=== PATIENT | male | born 1955 | race Caucasian/White ===

== ENCOUNTER 2019-07-17 10:15 | Outpatient (RCR) | payer OTHER, SELFPAY | END 2019-07-18 00:01 | LOC: ONCMED 10:15 | PROVIDERS: Family Provider Family Medicine; Visit Provider Internal Medicine Hematology & Oncology | DX: Z51.11 Encounter for antineoplastic chemotherapy (principal); C18.3 Malignant neoplasm of hepatic flexure; C77.2 Secondary and unspecified malignant neoplasm of intra-abdominal lymph nodes; D70.1 Agranulocytosis secondary to cancer chemotherapy; D69.59 Other secondary thrombocytopenia; T45.1X5A Adverse effect of antineoplastic and immunosuppressive drugs, initial encounter; Z45.2 Encounter for adjustment and management of vascular access device; Z90.49 Acquired absence of other specified parts of digestive tract | CPT/HCPCS: 36415; 80053 ×3; 83735; 85025 ×3; 96367; 96368; 96413; 96415; 96416; 96523; 99214; J0640; J1100; J2469; J9263 ==

== ENCOUNTER 2019-08-10 12:17 | Outpatient (RCR) | payer OTHER, SELFPAY ==
[2019-07-24 17:31] LABS: Basophils % 0.7 %; Eosinophils # 0.2 10^3/uL (0.0-0.8); Hemoglobin 12.9 g/dL (11.7-16.6); Lymphocytes % 36.6 %; Mean Corpuscular HGB Conc 32.3 g/dL (30.0-36.0); Mean Corpuscular Hemoglobin 34.5 pg (28.0-34.0); Mean Platelet Volume 9.7 fL (7.4-10.4); Monocytes % 18.5 %; Neutrophils # 2.2 10^3/uL (1.8-7.7); Neutrophils % 40.6 %; Nucleated Red Blood Cells % 0 %; Platelet Count 184 10^3/cmm (130-400); Red Blood Count 3.74 10^6/uL (4.1-5.3); Red Cell Distribution Width 13.4 % (12.1-15.1); White Blood Count 5.4 10^3/uL (4.0-10.0)
[2019-07-24 23:15] LABS: Alanine Aminotransferase 63 U/L (0-41); Albumin Level 3.9 g/dL (3.5-5.2); Alkaline Phosphatase 140 IU/L (40-130); Anion Gap 15.8 (5-19); Aspartate Amino Transferase 62 U/L (0-40); Blood Urea Nitrogen 11 mg/dL (8-23); Calcium 10.3 mg/Dl (8.8-10.2); Carbon Dioxide 25 mmol/L (22-29); Chloride 102 mmol/L (98-107); Glomerular Filtration Rate 114.3 mL/min (90-130); Glucose 96 mg/dL (74-106); Potassium 3.8 mmol/L (3.5-5.1); Sodium 139 mmol/L (136-145); Total Bilirubin 0.9 mg/dL (0.15-1.2); Total Protein 7.9 g/dL (6.6-8.7)
[2019-07-25] MEDS: fluconazole premix 200 MG/100 ML PREMIX IV (10:00)
[2019-07-25] MEDS: dextrose 5% 250 ML 75 ML (11:05)
[2019-07-31 15:50] LABS: Basophils # 0.1 10^3/uL (0.0-0.1); Basophils % 0.9 %; Eosinophils # 0.2 10^3/uL (0.0-0.8); Eosinophils % 2.4 %; Hematocrit 39.9 % (42.0-52.0); Hemoglobin 13.2 g/dL (11.7-16.6); Lymphocytes # 1.5 10^3/uL (0.8-4.8); Lymphocytes % 20.5 %; Mean Corpuscular HGB Conc 33.1 g/dL (30.0-36.0); Mean Corpuscular Hemoglobin 34.6 pg (28.0-34.0); Mean Corpuscular Volume 104.7 fL (80-94); Mean Platelet Volume 9.9 fL (7.4-10.4); Monocytes # 0.7 10^3/uL (0.2-0.9); Monocytes % 9.7 %; Neutrophils # 4.9 10^3/uL (1.8-7.7); Neutrophils % 66.1 %; Nucleated Red Blood Cells % 0.3 %; Platelet Count 80 10^3/cmm (130-400); Red Blood Count 3.81 10^6/uL (4.1-5.3); Red Cell Distribution Width 12.7 % (12.1-15.1); White Blood Count 7.5 10^3/uL (4.0-10.0)
[2019-07-31 16:12] LABS: Alanine Aminotransferase 71 U/L (0-41); Albumin Level 4.1 g/dL (3.5-5.2); Alkaline Phosphatase 215 IU/L (40-130); Anion Gap 18.6 (5-19); Aspartate Amino Transferase 54 U/L (0-40); Blood Urea Nitrogen 13 mg/dL (8-23); Calcium 9.9 mg/Dl (8.8-10.2); Carbon Dioxide 23 mmol/L (22-29); Chloride 99 mmol/L (98-107); Globulin 3.5 g/dL (1.3-4.6); Glomerular Filtration Rate 114.3 mL/min (90-130); Glucose 144 mg/dL (74-106); Potassium 3.6 mmol/L (3.5-5.1); Sodium 137 mmol/L (136-145); Total Bilirubin 1.6 mg/dL (0.15-1.2); Total Protein 7.6 g/dL (6.6-8.7)
[2019-08-07 12:07] LABS: Basophils % 0.3 %; Eosinophils # 0.3 10^3/uL (0.0-0.8); Eosinophils % 2.8 %; Hematocrit 39.1 % (42.0-52.0); Hemoglobin 13.2 g/dL (11.7-16.6); Lymphocytes # 2.5 10^3/uL (0.8-4.8); Lymphocytes % 28.5 %; Mean Corpuscular HGB Conc 33.8 g/dL (30.0-36.0); Mean Corpuscular Hemoglobin 35.9 pg (28.0-34.0); Mean Corpuscular Volume 106.3 fL (80-94); Mean Platelet Volume 9.9 fL (7.4-10.4); Monocytes # 1.6 10^3/uL (0.2-0.9); Monocytes % 17.5 %; Neutrophils # 4.4 10^3/uL (1.8-7.7); Nucleated Red Blood Cells % 0 %; Platelet Count 119 10^3/cmm (130-400); Red Blood Count 3.68 10^6/uL (4.1-5.3); Red Cell Distribution Width 13.2 % (12.1-15.1); White Blood Count 8.8 10^3/uL (4.0-10.0)
[2019-08-07 12:35] LABS: Alanine Aminotransferase 47 U/L (0-41); Albumin Level 3.4 g/dL (3.5-5.2); Alkaline Phosphatase 180 IU/L (40-130); Anion Gap 15.7 (5-19); Aspartate Amino Transferase 41 U/L (0-40); Blood Urea Nitrogen 7 mg/dL (8-23); Calcium 10.2 mg/Dl (8.8-10.2); Carbon Dioxide 25 mmol/L (22-29); Chloride 101 mmol/L (98-107); Globulin 4.7 g/dL (1.3-4.6); Glomerular Filtration Rate 114.3 mL/min (90-130); Glucose 98 mg/dL (74-106); Potassium 3.7 mmol/L (3.5-5.1); Sodium 138 mmol/L (136-145); Total Protein 8.1 g/dL (6.6-8.7)
[2019-08-08] MEDS: dextrose 5% 250 ML IV (10:28)
[2019-08-10] MEDS: acetaminophen 325 mg Tablet PO (13:40)
== END 2019-08-18 23:59 | disposition home or self-care (01) ==
LOC: ONCMED 12:17
PROVIDERS: Nurse Practitioner; Family Provider Family Medicine; PCP Family Medicine; Visit Provider Internal Medicine Hematology & Oncology
DX: Z51.11 Encounter for antineoplastic chemotherapy (principal); C18.3 Malignant neoplasm of hepatic flexure; C77.2 Secondary and unspecified malignant neoplasm of intra-abdominal lymph nodes; D70.1 Agranulocytosis secondary to cancer chemotherapy; B37.0 Candidal stomatitis; T45.1X5A Adverse effect of antineoplastic and immunosuppressive drugs, initial encounter; Z45.2 Encounter for adjustment and management of vascular access device; D69.59 Other secondary thrombocytopenia; F43.22 Adjustment disorder with anxiety; F10.20 Alcohol dependence, uncomplicated; J44.9 Chronic obstructive pulmonary disease, unspecified; E78.5 Hyperlipidemia, unspecified; I10 Essential (primary) hypertension; F17.210 Nicotine dependence, cigarettes, uncomplicated; Z79.51 Long term (current) use of inhaled steroids; Z90.49 Acquired absence of other specified parts of digestive tract
CPT/HCPCS: 36415; 80053; 85025; 96367; 96368; 96372; 96413; 96415; 96416; 96523; 99214; J0640; J1100; J1450; J2469; J2505; J9263

== ENCOUNTER 2019-08-22 05:45 | Outpatient (RCR) | payer OTHER, SELFPAY ==
--- NOTE | 2019-07-28 10:28 | ONC FU_ITS ---
[facility] Patient Note Patient: Rich Potts Unit #: [id number]: 1955 Dictated By: Cinad NaranjoDate of Visit: Jul 25, 2019 Onc MED Follow-Up/Prog Note Chief Complaint: Right colon cancer History of Present Illness: Mr. Potts is a 64-year-old gentleman who underwent surveillance colonoscopy. It revealed a mass in the hepatic flexure. A biopsy was obtained which showed adenocarcinoma arising in the background of tubular adenoma. There was another friable polyp seen which was completely removed, but did show tubular adenoma with high-grade dysplasia. CT scan of abdomen reported no direct evidence of metastatic disease. Mr Potts underwent ascending colon and terminal ileum, right hemicolectomy on 01/24/2019. The pathology reported low-grade, well to moderately differentiated infiltrating adenocarcinoma with limited penetration through muscularis propria into serosal connective tissue. Tumor arising immediately adjacent to tubulovillous adenoma with severe dysplasia T3 Smaller, separate invasive carcinoma focus measuring 1 x 1 cm. Surgical margins clear but as per discussion with Dr. 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 2 nodes were positive( microscopic clusters/ )14 node examined N1b MSI/MMR intact Dr Barbour recommended treatment with 12 cycles of FOLFOX. He began his first cycle on 04/04/19. His dose has been modified to hold the 5 FU bolus. Mr Potts has completed 5 cycles and has had complications due to the chemotherapy of neutropenia/thrombocytopenia. His cycle 4 was held an additional week due to the neutropenia. He was due for chemo and his ANC was 900. He was delayed a week and recovered to 1800. His day 8 ANC then was 1600. His platelet count was 72,000 at that time as well. Mr. Potts is here today for follow-up. His last chemotherapy was June 27, 2019. He had been on delay due to thrombocytopenia and neutropenia. His ANC last week at which time he was due for chemotherapy was 800. He did not have growth factor support with his last cycle of chemotherapy. He is here today for recheck of his labs and possible chemotherapy. He states overall he is doing well. He has no complaints. He states he has occasional headache and thinks it may be coming after treatment. He states is not real sure but has been asked to watch that today. If he has a headache within the next 3 to 5 days after chemotherapy I would suggest that it could be caused from the Aloxi/palonosetron. He states things have been tasting weird, which is new for him. He denies any fever or chills. He has had no diarrhea or constipation. He denies any new pain. He states his energy is fair and his appetite is generally good. He has had some slight cold-induced neuropathy but that resolves completely between treatments. His ECOG is 1. Past Medical History: Adjustment disorder Alcohol dependence Anxiety Chronic obstructive pulmonary disease Hyperlipidemia Hypertension Past Surgical History: Colon resection Right hemicolectomy Colonoscopy in 2019 Portacatheter placement in 2019 Allergies: No Known Allergies. Medications: Albuterol Sulfate 2 puff(s) (of 108 (90 base) mcg/act) Aerosol Powder, Breath Activated Inhalation q 4 hours PRN ALPRAZolam 1 Tablet (of 0.5 mg) Oral t.i.d. PRN Atorvastatin Calcium 1 Tablet (of 40 mg) Oral daily FLUoxetine HCl 1 Tablet (of 40 mg) Capsule Oral daily Gabapentin 1 Capsule (of 300 mg) Oral t.i.d. Lisinopril 1 Tablet (of 20 mg) Oral daily Propranolol HCl 1 Tablet (of 10 mg) Oral b.i.d. Sildenafil Citrate 1 Tablet (of 100 mg) Oral PRN Family History: Mr. Potts's mother at age 75: lung cancer. Mr. Potts's father at age 88: lung cancer. His maternal grandfather is : colon cancer. Mr. Potts has 1 sister who is : cancer of unknown primary. Social History: Mr. Potts is single and he is retired. He is a daily smoker who has smoked 0.5 packs/day for 44 years. He drinks daily. He consumes 7 drinks/day 6 days/week. He has indicated exposure to the following products: cigarettes. Mr. Potts reports the following support systems: lives with spouse, significant other, family, or friends, lives in own house, and transportation problems exist and will require assistance. His diet consists of regular meals. He indicates his activity level as: daily activities. Review Of Symptoms: Constitutional Denies fevers, chills, night sweats, excessive fatigue. Taste is off . Allergic/Immunologic No reactions. Eyes Denies significant visual changes. No diplopia. No amaurosis. ENMT Denies changes in hearing, sore throat, mouth sores, difficulty or changes in swallowing ability, and/or sinus drainage. Endocrine No diabetes, thyroid disease or hormone replacement. Denies hot flashes or night sweats. Hematologic/Lymphatic Denies easy bruising or bleeding. The patient denies any tender or palpable lymph nodes. Respiratory Denies dyspnea on exertion, chest pain, cough or hemoptysis. Denies orthopnea. Cardiovascular Denies anginal chest pain, palpitations or orthopnea. Gastrointestinal Denies nausea, vomiting, diarrhea, GI bleeding, or constipation. Denies change in bowel habits and/or stool color, no heartburn or early satiety. Genitourinary (M) Denies hematuria, dysuria, increased frequency, urgency, hesitancy or incontinence. Musculoskeletal Denies joint pain, swelling or redness. No decreased range of motion. Integumentary Denies chronic rashes, inflammation, ulcerations or skin changes. Neurologic Denies headache, blurred vision, and no areas of focal weakness or numbness. Normal gait. No sensory problems. Psychiatric Denies insomnia, depression, ariel or mood swings. Vital Signs: Performed on Jul 25, 2019 15:00 Height - 76.50 in Pulse - 78 /min Respiration - 18 /min BP - 132/72 mm(hg) O2 Sat - 96 % Pain - 0 Fatigue - 0 Performed on Jul 25, 2019 09:24 Height - 76.50 in Weight - 188.4 lbs (HIGH) BSA - 2.17 sq.m BMI - 22.63 Temperature - 98.0 F (LOW) Pulse - 70 /min Respiration - 22 /min BP - 134/84 mm(hg) O2 Sat - 99 % Pain - 0,1 - No physically strenuous activity, but ambulatory and able to carry out light or sedentary work (e.g. office work, light house work). (ECOG) Physical Examination: Constitutional Alert, oriented, no acute distress. Skin pink, warm and dry. Head Normocephalic; atraumatic. Eyes Conjunctivae and sclerae are clear and without icterus. Pupils are reactive and equal. ENMT No oral exudates, ulcers, masses, or mucositis. Oropharynx clear. Tongue with mild thrush. Neck Supple without masses or thyromegaly. No jugular venous distension. Hematologic/Lymphatic No petechiae or purpura. No tender or palpable lymph nodes in the cervical or supraclavicular areas. Respiratory Lungs are clear to auscultation without rhonchi or wheezing. Cardiovascular Regular rate and rhythm of heart without murmurs,clicks, gallops or rubs. Abdomen Non-tender, non-distended, no masses, ascites. Good bowel sounds noted in all quads. No guarding or rebound tenderness. No pulsatile masses. Back/Spine Non-tender to palpation. Extremities No visible deformities, no cyanosis, clubbing or edema. Musculoskeletal No tenderness or swelling, normal range of motion without obvious weakness. Integumentary No rashes or lesions. Neurologic No sensory or motor deficits, normal cerebellar function, normal gait. Psychiatric Alert and oriented times three. Coherent speech. Verbalizes understanding of our discussions today. Laboratory:Test performed on Jul 25, 2019 08:57 Sodium 139 mmol/L Potassium 3.8 mmol/L Chloride 102 mmol/L CO2 25 mmol/L Anion Gap 15.8 BUN 11 mg/dL Creatinine 0.7 mg/dL Cr Clearance (Est) 129.87 mL/min Glucose 96 mg/dL Calcium 10.3 mg/dL Protein, Total 7.9 g/dL Albumin 3.9 g/dL Globulin 4.0 g/dL Bilirubin, Total 0.9 mg/dL ALT (SGPT) 63 Units/L AST (SGOT) 62 Units/L Alkaline Phosphatase 140 IU/L WBC 5.4 10^3/uL RBC 3.74 10^6/uL HGB 12.9 g/dL HCT 40.0 % MCV 107.0 fl MCH 34.5 pg MCHC 32.3 g/dL RDW 13.4 % Platelet Count 184 10^3/uL MPV 9.7 fl Neutrophils 2.2 10^3/uL Lymphocytes 2.0 10^3/uL Monocytes 1.0 10^3/uL Eosinophils 0.2 10^3/uL Basophils 0.0 10^3/uL Neutrophil % 40.6 % Lymphocyte % 36.6 % Monocyte % 18.5 % Eosinophil % 3.0 % Basophils % 0.7 % Impression: Infiltrating adenocarcinoma, low-grade, well to moderately differentiated status post ascending colon and terminal ileum, right hemicolectomy done on 01/24/2019 Final pathology report showed limited penetration through muscularis propria into serosal connective tissue, smaller, separate invasive carcinoma focus measuring 1 x 1 cm Clear surgical margin but DCIS at staple line. pT3 2 out of 14 lymph nodes were examined showed microscopic clusters pN1b, MSI/MMR intact CT scan of abdomen pelvis done on 11/16/2018 showed no evidence of metastatic disease. Stage IIIB Mr Potts was offered treatment with FOLFOX. He began his first cycle on 04/04/2019. His last cycle of chemotherapy was given on June 27, 2019. That was his fifth cycle and he has been on hold since then due to neutropenia. He is due for cycle 6/12 today. Plan: 1. Proceed with cycle 6 of 12 FOLFOX. 2. Continue antiemetics the same for now he will watch for headache and if he notices headache associated with treatment we will change his Aloxi with cycle 7. 3. I have asked for prior authorization for growth factor support with Neulasta today. This will be added when his pump is removed. He has had delay of treatment due to chemo induced neutropenia. 4. Today's labs were reviewed in detail and discussed with Mr. Potts and a copy was given to him. WBC 5.4, hemoglobin 12.9, platelets 184,000 ANC is 2200. Potassium 3.8 glucose is 96 (random), creatinine 0.7 and LFTs are normal. 5. He does have appearance of thrush in his mouth which may be altering his taste. I did request a prescription be sent to the [place] for Diflucan. He is instructed to take it once daily for 7 days once he receives it. 6. We will plan to see Mr. Potts back in 2 weeks with CBC CMP. He will have interim CBC for evaluation of possible chemo induced neutropenia/thrombocytopenia. 7. Mr. Potts instructed to contact us in the interim should questions or problems arise. Signed By: Cinda Naranjo <<Signature on File>>
--- NOTE | 2019-08-09 09:22 | ONC FU_ITS ---
Dr. Barbour follow up note Patient: Rich Potts Unit #: [id number]: 1955 Dicatated By: Andrés Barbour M.D.Date of Visit:Aug 08, 2019 Onc Med Follow-up/Prog Note History of Present Illness: Mr. Potts is a 64-year-old gentleman who underwent surveillance colonoscopy. It revealed a mass in the hepatic flexure. A biopsy was obtained which showed adenocarcinoma arising in the background of tubular adenoma. There was another friable polyp seen which was completely removed, but did show tubular adenoma with high-grade dysplasia. CT scan of abdomen reported no direct evidence of metastatic disease. Mr Potts underwent ascending colon and terminal ileum, right hemicolectomy on 01/24/2019. The pathology reported low-grade, well to moderately differentiated infiltrating adenocarcinoma with limited penetration through muscularis propria into serosal connective tissue. Tumor arising immediately adjacent to tubulovillous adenoma with severe dysplasia T3 Smaller, separate invasive carcinoma focus measuring 1 x 1 cm. Surgical margins clear but as per discussion with Dr. 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 2 nodes were positive( microscopic clusters/ )14 node examined N1b MSI/MMR intact recommended treatment with 12 cycles of FOLFOX. He began his first cycle on 04/04/19. His dose has been modified to hold the 5 FU bolus. Mr Potts has completed 6 cycles and has had complications due to the chemotherapy of neutropenia/thrombocytopenia. His cycle 4 was held an additional week due to the neutropenia. He was due for chemo and his ANC was 900. He was delayed a week and recovered to 1800. His day 8 ANC then was 1600. His platelet count was 72,000 at that time as well. Came for follow-up, denies any specific complaints, no nausea or vomiting no diarrhea constipation, no fever or chills, no mouth sores. No jaundice. Patient said he could not tolerate Diflucan so he discontinued and denies any thrush in his mouth. He was also schedule him for CT scan of abdomen because of fluctuating LFTs but because of whether he could not get it done Medications: Albuterol Sulfate 2 puff(s) (of 108 (90 base) mcg/act) Aerosol Powder, Breath Activated Inhalation q 4 hours PRN, ALPRAZolam 1 Tablet (of 0.5 mg) Oral t.i.d. PRN, Atorvastatin Calcium 1 Tablet (of 40 mg) Oral daily, FLUoxetine HCl 1 Tablet (of 40 mg) Capsule Oral daily, Gabapentin 1 Capsule (of 300 mg) Oral t.i.d., Lisinopril 1 Tablet (of 20 mg) Oral daily, Propranolol HCl 1 Tablet (of 10 mg) Oral b.i.d., Sildenafil Citrate 1 Tablet (of 100 mg) Oral PRN Allergies: No Known Allergies. Review of Systems: Constitutional - Appetite is good and weight is stable. No fever, chills, hot flashes, or night sweats. Energy level is good, ENMT - No sinus congestion/drainage. No mouth sores. No sore throat or difficulty swallowing, Hematologic/Lymphatic - No abnormal bruising or bleeding, Respiratory - No shortness of breath. No cough. No pleuritic pain or hemoptysis, Cardiovascular - No angina pain. No palpitations, Gastrointestinal - No nausea or vomiting. No heartburn or acid reflux. Positive for diarrhea, no constipation. No blood in the stool or black stools, Genitourinary (M) - No dysuria or hematuria. No urinary frequency. No urgency or incontinence, Musculoskeletal - No joint or bone pain, Neurologic - No headache or dizziness. No numbness/paresthesias or other focal neurologic symptoms, Psychiatric - Positive for anxiety and insomnia. Vital Signs: Performed on Aug 08, 2019 09:33 Height - 76.50 in Weight - 184.2 lbs (LOW) BSA - 2.15 sq.m BMI - 22.13 Temperature - 97.8 F (LOW) Pulse - 86 /min Respiration - 22 /min BP - 116/69 mm(hg) O2 Sat - 98 % Pain - 0 Performance Status: 0 - Fully active, able to carry on all predisease activities without restrictions. (ECOG) Physical Examination: ENMT - No oral exudates, ulcers, masses, thrush or mucositis. Oropharynx clear. Tongue normal, Respiratory - Lungs are clear to auscultation without rhonchi or wheezing, Cardiovascular - Regular rate and rhythm of heart, Abdomen - Non-tender, non-distended, Good bowel sounds. No guarding or rebound tenderness. No pulsatile masses, Extremities - no edema. Lab/Imaging: Test performed on Aug 07, 2019 08:40 Glucose 98 mg/dL BUN 7 mg/dL Creatinine 0.7 mg/dL Cr Clearance (Est) 129.87 mL/min Sodium 138 mmol/L Potassium 3.7 mmol/L Chloride 101 mmol/L CO2 25 mmol/L Calcium 10.2 mg/dL Protein, Total 8.1 g/dL Albumin 3.4 g/dL Globulin 4.7 g/dL Bilirubin, Total 1.0 mg/dL Alkaline Phosphatase 180 IU/L AST (SGOT) 41 IU/L ALT (SGPT) 47 IU/L WBC 8.8 10^9/L RBC 3.68 10^12/L HGB 13.2 g/dL HCT 39.1 % MCV 106.3 fl MCH 35.9 pg MCHC 33.8 g/dL RDW 13.2 % Platelet Count 119 10^9/L MPV 9.9 fL Neutrophils (Gran) 4.4 10^9/L Lymphocytes 2.5 10^9/L Monocytes 1.6 10^9/L Eosinophils 0.3 10^9/L Basophils 0.0 10^9/L Manual Lymphocytes 28.5 % Manual Monocytes 17.5 % Manual Eosinophils 2.8 % Manual Basophils 0.3 % NRBCs 0.0 /100 WBC Test performed on Jul 25, 2019 08:57 Anion Gap 15.8 Neutrophil % 40.6 % Lymphocyte % 36.6 % Monocyte % 18.5 % Eosinophil % 3.0 % Basophils % 0.7 % Test performed on Jul 17, 2019 10:15 eGFR 114.3 mL/min Test performed on Jun 19, 2019 10:05 Magnesium 2.2 mg/dL Impression: Infiltrating adenocarcinoma, low-grade, well to moderately differentiated status post ascending colon and terminal ileum, right hemicolectomy done on 01/24/2019 Final pathology report showed limited penetration through muscularis propria into serosal connective tissue, smaller, separate invasive carcinoma focus measuring 1 x 1 cm Clear surgical margin but DCIS at staple line. pT3 2 out of 14 lymph nodes were examined showed microscopic clusters pN1b, MSI/MMR intact CT scan of abdomen pelvis done on 11/16/2018 showed no evidence of metastatic disease. Stage IIIB Mr Potts was offered treatment with FOLFOX. He began his first cycle on 04/04/2019. His last cycle of chemotherapy was given on June 27, 2019. That was his fifth cycle and he has been on hold since then due to neutropenia. He is due for cycle 6/12 today. Plan: Discussed with patient regarding his labs white blood count 8.8 hemoglobin 13.2 crit 39.1 platelets 119,000 CMP within normal limits including LFTs, AST 41, ALT 47 compared to 54/71 on 07/31/2019 and 43/42 on 06/26/2019. Clinically, patient is doing well tolerating adjuvant chemotherapy with FOLFOX well but with expected side effects e.g. generalized weakness and fatigue and fluctuating LFTs other possibility for fluctuating LFTs could be hepatic pathology but less likely, patient was scheduled for CT scan of abdomen but due to whether he could not get it done and today's lab shows normalization of AST/ALT so we will hold his CT scan for the time being and proceed with cycle #7/12 with FOLFOX today and then he will return to clinic in 2 weeks with CBC CMP. Signed By: Andrés Barbour M.D. <<Signature on File>>
== END 2019-08-22 09:14 | disposition home or self-care (01) ==
LOC: RAD 05:45
PROVIDERS: Absent Provider Nurse Practitioner; Family Provider Family Medicine; PCP Family Medicine; Visit Provider Internal Medicine Hematology & Oncology
DX: D69.59 Other secondary thrombocytopenia (principal); D70.1 Agranulocytosis secondary to cancer chemotherapy; T45.1X5A Adverse effect of antineoplastic and immunosuppressive drugs, initial encounter; C18.3 Malignant neoplasm of hepatic flexure; Z76.89 Persons encountering health services in other specified circumstances
CPT/HCPCS: 96367; 96368; 96372; 96413; 96415; 96416; 96523

== ENCOUNTER 2019-09-07 05:41 | Outpatient (RCR) | payer OTHER, SELFPAY ==
[2019-08-21 14:53] LABS: Basophils % 0.6 %; Eosinophils # 0.1 10^3/uL (0.0-0.8); Eosinophils % 1.5 %; Hematocrit 36.8 % (42.0-52.0); Hemoglobin 11.9 g/dL (11.7-16.6); Lymphocytes # 2.2 10^3/uL (0.8-4.8); Lymphocytes % 32.9 %; Mean Corpuscular HGB Conc 32.3 g/dL (30.0-36.0); Mean Corpuscular Hemoglobin 34.3 pg (28.0-34.0); Mean Corpuscular Volume 106.1 fL (80-94); Mean Platelet Volume 9.9 fL (7.4-10.4); Monocytes # 1.6 10^3/uL (0.2-0.9); Monocytes % 23.5 %; Neutrophils # 2.7 10^3/uL (1.8-7.7); Neutrophils % 40.9 %; Nucleated Red Blood Cells % 0 %; Platelet Count 96 10^3/cmm (130-400); Red Blood Count 3.47 10^6/uL (4.1-5.3); Red Cell Distribution Width 14.1 % (12.1-15.1); White Blood Count 6.7 10^3/uL (4.0-10.0)
[2019-08-21 15:14] LABS: Alanine Aminotransferase 57 U/L (0-41); Albumin Level 3.3 g/dL (3.5-5.2); Alkaline Phosphatase 175 IU/L (40-130); Anion Gap 16.6 (5-19); Aspartate Amino Transferase 49 U/L (0-40); Blood Urea Nitrogen 7 mg/dL (8-23); Carbon Dioxide 27 mmol/L (22-29); Chloride 101 mmol/L (98-107); Globulin 4.8 g/dL (1.3-4.6); Glucose 99 mg/dL (74-106); Potassium 3.6 mmol/L (3.5-5.1); Sodium 141 mmol/L (136-145); Total Bilirubin 1.2 mg/dL (0.15-1.2); Total Protein 8.1 g/dL (6.6-8.7)
[2019-08-22] MEDS: dextrose 5% 250 ML 75 ML IV (09:55)
--- NOTE | 2019-08-22 10:08 | ONC FU_ITS ---
Dr. Barbour follow up note Patient: Rich Potts Unit #: [id number]: 1955 Dicatated By: Andrés Barbour M.D.Date of Visit:Aug 22, 2019 Onc Med Follow-up/Prog Note History of Present Illness: Mr. Potts is a 64-year-old gentleman who underwent surveillance colonoscopy. It revealed a mass in the hepatic flexure. A biopsy was obtained which showed adenocarcinoma arising in the background of tubular adenoma. There was another friable polyp seen which was completely removed, but did show tubular adenoma with high-grade dysplasia. CT scan of abdomen reported no direct evidence of metastatic disease. Mr Potts underwent ascending colon and terminal ileum, right hemicolectomy on 01/24/2019. The pathology reported low-grade, well to moderately differentiated infiltrating adenocarcinoma with limited penetration through muscularis propria into serosal connective tissue. Tumor arising immediately adjacent to tubulovillous adenoma with severe dysplasia T3 Smaller, separate invasive carcinoma focus measuring 1 x 1 cm. Surgical margins clear but as per discussion with Dr. 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 2 nodes were positive( microscopic clusters/ )14 node examined N1b MSI/MMR intact recommended treatment with 12 cycles of FOLFOX. He began his first cycle on 04/04/19. His dose has been modified to hold the 5 FU bolus. Mr Potts has completed 7 cycles and has had complications due to the chemotherapy of neutropenia/thrombocytopenia. His cycle 4 was held an additional week due to the neutropenia. He was due for chemo and his ANC was 900. He was delayed a week and recovered to 1800. His day 8 ANC then was 1600. His platelet count was 72,000 at that time as well.And mildly fluctuating AST/ALT Came for follow-up, denies any specific complaints, no fevers chills no nausea vomiting, no mouth sores no diarrhea constipation no skin rash no peripheral neuropathy, tolerating adjuvant chemotherapy with FOLFOX well. Medications: Albuterol Sulfate 2 puff(s) (of 108 (90 base) mcg/act) Aerosol Powder, Breath Activated Inhalation q 4 hours PRN, ALPRAZolam 1 Tablet (of 0.5 mg) Oral t.i.d. PRN, Atorvastatin Calcium 1 Tablet (of 40 mg) Oral daily, FLUoxetine HCl 1 Tablet (of 40 mg) Capsule Oral daily, Gabapentin 1 Capsule (of 300 mg) Oral t.i.d., Lisinopril 1 Tablet (of 20 mg) Oral daily, Propranolol HCl 1 Tablet (of 10 mg) Oral b.i.d., Sildenafil Citrate 1 Tablet (of 100 mg) Oral PRN Allergies: No Known Allergies. Review of Systems: Constitutional - Appetite is good and weight is stable. No fever, chills, hot flashes, or night sweats. Energy level is good, ENMT - No sinus congestion/drainage. No mouth sores. No sore throat or difficulty swallowing, Hematologic/Lymphatic - No abnormal bruising or bleeding, Respiratory - No shortness of breath. No cough. No pleuritic pain or hemoptysis, Cardiovascular - No angina pain. No palpitations, Gastrointestinal - No nausea or vomiting. No heartburn or acid reflux. Positive for diarrhea, no constipation. No blood in the stool or black stools, Genitourinary (M) - No dysuria or hematuria. No urinary frequency. No urgency or incontinence, Musculoskeletal - No joint or bone pain, Neurologic - No headache or dizziness. No numbness/paresthesias or other focal neurologic symptoms, Psychiatric - Positive for anxiety and insomnia. Vital Signs: Performed on Aug 22, 2019 09:13 Height - 76.50 in Weight - 184.8 lbs (HIGH) BSA - 2.15 sq.m BMI - 22.20 Temperature - 97.9 F (LOW) Pulse - 70 /min Respiration - 18 /min BP - 122/75 mm(hg) O2 Sat - 98 % Pain - 3 Performance Status: 0 - Fully active, able to carry on all predisease activities without restrictions. (ECOG) Physical Examination: ENMT - No oral exudates, ulcers, masses, thrush or mucositis. Oropharynx clear. Tongue normal, Respiratory - Lungs are clear to auscultation without rhonchi or wheezing, Cardiovascular - Regular rate and rhythm of heart, Abdomen - Non-tender, non-distended, Good bowel sounds. No guarding or rebound tenderness. No pulsatile masses, Extremities - no edema. Lab/Imaging: Test performed on Aug 07, 2019 08:40 Glucose 98 mg/dL BUN 7 mg/dL Creatinine 0.7 mg/dL Cr Clearance (Est) 129.87 mL/min Sodium 138 mmol/L Potassium 3.7 mmol/L Chloride 101 mmol/L CO2 25 mmol/L Calcium 10.2 mg/dL Protein, Total 8.1 g/dL Albumin 3.4 g/dL Globulin 4.7 g/dL Bilirubin, Total 1.0 mg/dL Alkaline Phosphatase 180 IU/L AST (SGOT) 41 IU/L ALT (SGPT) 47 IU/L WBC 8.8 10^9/L RBC 3.68 10^12/L HGB 13.2 g/dL HCT 39.1 % MCV 106.3 fl MCH 35.9 pg MCHC 33.8 g/dL RDW 13.2 % Platelet Count 119 10^9/L MPV 9.9 fL Neutrophils (Gran) 4.4 10^9/L Lymphocytes 2.5 10^9/L Monocytes 1.6 10^9/L Eosinophils 0.3 10^9/L Basophils 0.0 10^9/L Manual Lymphocytes 28.5 % Manual Monocytes 17.5 % Manual Eosinophils 2.8 % Manual Basophils 0.3 % NRBCs 0.0 /100 WBC Test performed on Jul 25, 2019 08:57 Anion Gap 15.8 Neutrophil % 40.6 % Lymphocyte % 36.6 % Monocyte % 18.5 % Eosinophil % 3.0 % Basophils % 0.7 % Test performed on Jul 17, 2019 10:15 eGFR 114.3 mL/min Test performed on Jun 19, 2019 10:05 Magnesium 2.2 mg/dL Impression: Infiltrating adenocarcinoma, low-grade, well to moderately differentiated status post ascending colon and terminal ileum, right hemicolectomy done on 01/24/2019 Final pathology report showed limited penetration through muscularis propria into serosal connective tissue, smaller, separate invasive carcinoma focus measuring 1 x 1 cm Clear surgical margin but DCIS at staple line. pT3 2 out of 14 lymph nodes were examined showed microscopic clusters pN1b, MSI/MMR intact CT scan of abdomen pelvis done on 11/16/2018 showed no evidence of metastatic disease. Stage IIIB Mr Potts was offered treatment with FOLFOX. He began his first cycle on 04/04/2019. His last cycle of chemotherapy was given on June 27, 2019. That was his fifth cycle and he has been on hold since then due to neutropenia. He is due for cycle 6/12 today. Plan: Discussed with patient regarding his labs white blood count 6.7 hemoglobin 11.9 crit 36.8 platelets 96,000 ANC 2700 CMP within normal limits except ALT 57 AST 49 compared to ALT 47 AST 41 on 08/07/2019 and ALT 71 AST 54 on 07/31/2019. Clinically, patient is doing well, tolerating adjuvant chemotherapy with FOLFOX well but with expected side effects e.g. progressive thrombocytopenia and mildly fluctuating ALT/AST. At this point we will reduce his oxaliplatin dose to 75 mg/m??? from 85 mg/m??? and also reduced 5-FU infusional dose by 10% to minimize hepatic toxicity as well as hematological toxicity. And monitor blood counts closely. We'll proceed with cycle #8/12 with modified dose of FOLFOX and return to clinic in 2 weeks with CBC CMP. Signed By: Andrés Barbour M.D. <<Signature on File>>
[2019-09-04 16:13] LABS: Basophils % 0.4 %; Eosinophils # 0.2 10^3/uL (0.0-0.8); Eosinophils % 2.4 %; Hematocrit 36.2 % (42.0-52.0); Hemoglobin 11.8 g/dL (11.7-16.6); Lymphocytes # 2.2 10^3/uL (0.8-4.8); Lymphocytes % 31.8 %; Mean Corpuscular HGB Conc 32.6 g/dL (30.0-36.0); Mean Corpuscular Hemoglobin 34.3 pg (28.0-34.0); Mean Corpuscular Volume 105.2 fL (80-94); Monocytes # 1.3 10^3/uL (0.2-0.9); Monocytes % 18.8 %; Neutrophils # 3.1 10^3/uL (1.8-7.7); Neutrophils % 45.9 %; Nucleated Red Blood Cells % 0 %; Platelet Count 88 10^3/cmm (130-400); Red Blood Count 3.44 10^6/uL (4.1-5.3); White Blood Count 6.8 10^3/uL (4.0-10.0)
[2019-09-04 19:02] LABS: Alanine Aminotransferase 53 U/L (0-41); Albumin Level 3.3 g/dL (3.5-5.2); Alkaline Phosphatase 228 IU/L (40-130); Aspartate Amino Transferase 49 U/L (0-40); Blood Urea Nitrogen 7 mg/dL (8-23); Calcium 10.3 mg/dL (8.5-10.5); Carbon Dioxide 23 mmol/L (22-29); Chloride 103 mmol/L (98-107); Globulin 5.3 g/dL (1.3-4.6); Glomerular Filtration Rate 85.5 mL/min (90-130); Glucose 88 mg/dL (65-115); Sodium 140 mmol/L (136-145); Total Bilirubin 1.5 mg/dL (0.15-1.2); Total Protein 8.6 g/dL (6.6-8.7)
[2019-09-05] MEDS: dextrose 5% 250 ML 75 ML (09:40)
[2019-09-05] MEDS: dextrose 5% 250 ML 75 ML IV (09:40)
--- NOTE | 2019-09-05 11:13 | ONC FU_ITS ---
Dr. Barbour follow up note Patient: Rich Potts Unit #: [id number]: 1955 Dicatated By: Andrés Barbour M.D.Date of Visit:Sep 05, 2019 Onc Med Follow-up/Prog Note History of Present Illness: Mr. Potts is a 64-year-old gentleman who underwent surveillance colonoscopy. It revealed a mass in the hepatic flexure. A biopsy was obtained which showed adenocarcinoma arising in the background of tubular adenoma. There was another friable polyp seen which was completely removed, but did show tubular adenoma with high-grade dysplasia. CT scan of abdomen reported no direct evidence of metastatic disease. Mr Potts underwent ascending colon and terminal ileum, right hemicolectomy on 01/24/2019. The pathology reported low-grade, well to moderately differentiated infiltrating adenocarcinoma with limited penetration through muscularis propria into serosal connective tissue. Tumor arising immediately adjacent to tubulovillous adenoma with severe dysplasia T3 Smaller, separate invasive carcinoma focus measuring 1 x 1 cm. Surgical margins clear but as per discussion with Dr. 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 2 nodes were positive( microscopic clusters/ )14 node examined N1b MSI/MMR intact recommended treatment with 12 cycles of FOLFOX. He began his first cycle on 04/04/19. His dose has been modified to hold the 5 FU bolus. Mr Potts has completed 8 cycles and has had complications due to the chemotherapy of neutropenia/thrombocytopenia. His cycle 4 was held an additional week due to the neutropenia. He was due for chemo and his ANC was 900. He was delayed a week and recovered to 1800. His day 8 ANC then was 1600. His platelet count was 72,000 at that time as well.And mildly fluctuating AST/ALT Came for follow-up, denies any specific complaints, no nausea vomiting no fever no chills no mouth sores, no diarrhea constipation no jaundice. Tolerating adjuvant chemotherapy with modified dose FOLFOX well Medications: Albuterol Sulfate 2 puff(s) (of 108 (90 base) mcg/act) Aerosol Powder, Breath Activated Inhalation q 4 hours PRN, ALPRAZolam 1 Tablet (of 0.5 mg) Oral t.i.d. PRN, Atorvastatin Calcium 1 Tablet (of 40 mg) Oral daily, FLUoxetine HCl 1 Tablet (of 40 mg) Capsule Oral daily, Gabapentin 1 Capsule (of 300 mg) Oral t.i.d., Lisinopril 1 Tablet (of 20 mg) Oral daily, Propranolol HCl 1 Tablet (of 10 mg) Oral b.i.d., Sildenafil Citrate 1 Tablet (of 100 mg) Oral PRN Allergies: No Known Allergies. Review of Systems: Constitutional - Appetite has been poor and weight is stable. No fever, chills, hot flashes, or night sweats. Energy level is fair, ENMT - No sinus congestion/drainage. No mouth sores. No sore throat or difficulty swallowing, Hematologic/Lymphatic - No abnormal bruising or bleeding, Respiratory - No shortness of breath. No cough. No pleuritic pain or hemoptysis, Cardiovascular - No angina pain. No palpitations, Gastrointestinal - Positive for nausea, no vomiting. No heartburn or acid reflux. Positive for diarrhea, no constipation. No blood in the stool or black stools, Genitourinary (M) - No dysuria or hematuria. No urinary frequency. No urgency or incontinence, Musculoskeletal - No joint or bone pain, Neurologic - No headache or dizziness. No numbness/paresthesias or other focal neurologic symptoms, Psychiatric - Positive for anxiety and insomnia. Vital Signs: Performed on Sep 05, 2019 09:14 Height - 76.50 in Weight - 180.4 lbs (LOW) BSA - 2.13 sq.m BMI - 21.67 Temperature - 97.7 F (LOW) Pulse - 72 /min Respiration - 14 /min BP - 91/60 mm(hg) O2 Sat - 98 % Pain - 0 Fatigue - 2 Performance Status: 0 - Fully active, able to carry on all predisease activities without restrictions. (ECOG) Physical Examination: ENMT - No oral exudates, ulcers, masses, thrush or mucositis. Oropharynx clear. Tongue normal, Respiratory - Lungs are clear to auscultation without rhonchi or wheezing, Cardiovascular - Regular rate and rhythm of heart, Abdomen - Non-tender, non-distended, Good bowel sounds. No guarding or rebound tenderness. No pulsatile masses, Extremities - no edema. Lab/Imaging: Test performed on Aug 21, 2019 10:50 Sodium 141 mmol/L Potassium 3.6 mmol/L Chloride 101 mmol/L CO2 27 mmol/L Anion Gap 16.6 BUN 7 mg/dL Creatinine 0.8 mg/dL Cr Clearance (Est) 113.6400 mL/min eGFR 98.0 mL/min Glucose 99 mg/dL Calcium 10.0 mg/dL Protein, Total 8.1 g/dL Albumin 3.3 g/dL Globulin 4.8 g/dL Bilirubin, Total 1.2 mg/dL ALT (SGPT) 57 U/L AST (SGOT) 49 U/L Alkaline Phosphatase 175 IU/L WBC 6.7 10 3/uL RBC 3.47 10 6/uL HGB 11.9 g/dL HCT 36.8 % MCV 106.1 fL MCH 34.3 pg MCHC 32.3 g/dL RDW 14.1 % Platelet Count 96 10 3/cmm MPV 9.9 fL Neutrophils 2.7 10 3/uL Lymphocytes 2.2 10 3/uL Monocytes 1.6 10 3/uL Eosinophils 0.1 10 3/uL Basophils 0.0 10 3/uL Neutrophil % 40.9 % Lymphocyte % 32.9 % Monocyte % 23.5 % Eosinophil % 1.5 % Basophils % 0.6 % Test performed on Aug 07, 2019 08:40 Manual Lymphocytes 28.5 % Manual Monocytes 17.5 % Manual Eosinophils 2.8 % Manual Basophils 0.3 % NRBCs 0.0 /100 WBC Test performed on Jun 19, 2019 10:05 Magnesium 2.2 mg/dL Impression: Infiltrating adenocarcinoma, low-grade, well to moderately differentiated status post ascending colon and terminal ileum, right hemicolectomy done on 01/24/2019 Final pathology report showed limited penetration through muscularis propria into serosal connective tissue, smaller, separate invasive carcinoma focus measuring 1 x 1 cm Clear surgical margin but DCIS at staple line. pT3 2 out of 14 lymph nodes were examined showed microscopic clusters pN1b, MSI/MMR intact CT scan of abdomen pelvis done on 11/16/2018 showed no evidence of metastatic disease. Stage IIIB Mr Potts was offered treatment with FOLFOX. He began his first cycle on 04/04/2019. Plan: Discussed with patient regarding his labs white blood count 6.8 hemoglobin 11.8 crit 36.2 platelets 88,000 ANC 3100 CMP within normal limit except ALT 53 AST 49 Clinically, patient is doing well, tolerating adjuvant chemotherapy with modified dose FOLFOX well. We'll proceed with the next cycle #9/12 dose today followed by Rodrigo and then return to clinic in 2 weeks with CBC CMP Moderate thrombocytopenia, stable, his oxaliplatin dose was reduced last time, now moderate thrombocytopenia stable we'll continue monitor if needed may do further dose reduction. Signed By: Andrés Barbour M.D. <<Signature on File>>
== END 2019-09-16 23:59 | disposition home or self-care (01) ==
LOC: ONCMED 05:41
PROVIDERS: Family Provider Family Medicine; PCP Family Medicine; Visit Provider Internal Medicine Hematology & Oncology
DX: Z51.11 Encounter for antineoplastic chemotherapy (principal); C18.3 Malignant neoplasm of hepatic flexure; C77.2 Secondary and unspecified malignant neoplasm of intra-abdominal lymph nodes; D70.1 Agranulocytosis secondary to cancer chemotherapy; T45.1X5A Adverse effect of antineoplastic and immunosuppressive drugs, initial encounter; Z45.2 Encounter for adjustment and management of vascular access device; D69.59 Other secondary thrombocytopenia; Z90.49 Acquired absence of other specified parts of digestive tract; Z79.899 Other long term (current) drug therapy
CPT/HCPCS: 36415; 80053; 85025; 96367; 96368; 96372; 96413; 96415; 96416; 96523; 99214; J0640; J1100; J2469; J2505; J9263

== ENCOUNTER 2019-10-12 05:54 | Outpatient (RCR) | payer OTHER, SELFPAY ==
[2019-09-18 16:14] LABS: Basophils % 0.4 %; Eosinophils # 0.1 10^3/uL (0.0-0.8); Eosinophils % 1.6 %; Hematocrit 31.4 % (42.0-52.0); Hemoglobin 10.3 g/dL (11.7-16.6); Lymphocytes % 24.7 %; Mean Corpuscular HGB Conc 32.8 g/dL (30.0-36.0); Mean Corpuscular Hemoglobin 34.8 pg (28.0-34.0); Mean Corpuscular Volume 106.1 fL (80-94); Mean Platelet Volume 10.5 fL (7.4-10.4); Monocytes # 1.6 10^3/uL (0.2-0.9); Monocytes % 20.1 %; Neutrophils # 4.2 10^3/uL (1.8-7.7); Neutrophils % 52.4 %; Nucleated Red Blood Cells % 0 %; Platelet Count 77 10^3/cmm (130-400); Red Blood Count 2.96 10^6/uL (4.1-5.3); Red Cell Distribution Width 15.9 % (12.1-15.1)
[2019-09-18 16:27] LABS: Alanine Aminotransferase 72 U/L (0-41); Albumin Level 3.4 g/dL (3.5-5.2); Alkaline Phosphatase 186 IU/L (40-130); Anion Gap 16.9 (5-19); Aspartate Amino Transferase 57 U/L (0-40); Blood Urea Nitrogen 9 mg/dL (8-23); Calcium 9.6 mg/dL (8.5-10.5); Carbon Dioxide 23 mmol/L (22-29); Chloride 101 mmol/L (98-107); Globulin 4.4 g/dL (1.3-4.6); Glucose 102 mg/dL (65-115); Potassium 3.9 mmol/L (3.5-5.1); Sodium 137 mmol/L (136-145); Total Bilirubin 1.6 mg/dL (0.15-1.2); Total Protein 7.8 g/dL (6.6-8.7)
[2019-09-25 17:50] LABS: Basophils % 0.6 %; Eosinophils # 0.2 10^3/uL (0.0-0.8); Eosinophils % 2.4 %; Hematocrit 34.4 % (42.0-52.0); Hemoglobin 11.2 g/dL (11.7-16.6); Lymphocytes # 1.9 10^3/uL (0.8-4.8); Lymphocytes % 28.5 %; Mean Corpuscular HGB Conc 32.6 g/dL (30.0-36.0); Mean Corpuscular Hemoglobin 35.3 pg (28.0-34.0); Mean Corpuscular Volume 108.5 fL (80-94); Mean Platelet Volume 9.6 fL (7.4-10.4); Monocytes # 1.4 10^3/uL (0.2-0.9); Monocytes % 21.2 %; Neutrophils # 3.1 10^3/uL (1.8-7.7); Nucleated Red Blood Cells % 0 %; Platelet Count 195 10^3/cmm (130-400); Red Blood Count 3.17 10^6/uL (4.1-5.3); White Blood Count 6.6 10^3/uL (4.0-10.0)
[2019-09-25 19:38] LABS: Alanine Aminotransferase 55 U/L (0-41); Albumin Level 3.3 g/dL (3.5-5.2); Alkaline Phosphatase 150 IU/L (40-130); Anion Gap 15.7 (5-19); Aspartate Amino Transferase 53 U/L (0-40); Blood Urea Nitrogen 9 mg/dL (8-23); Calcium 10.1 mg/dL (8.5-10.5); Carbon Dioxide 25 mmol/L (22-29); Chloride 101 mmol/L (98-107); Globulin 5.7 g/dL (1.3-4.6); Glomerular Filtration Rate 114.3 mL/min (90-130); Glucose 83 mg/dL (65-115); Osmolality Calculated 281 mOsm/kg (285-295); Potassium 3.7 mmol/L (3.5-5.1); Sodium 138 mmol/L (136-145); Total Bilirubin 1.5 mg/dL (0.15-1.2)
[2019-09-26] MEDS: dextrose 5% 250 ML 75 ML IV (10:35)
--- NOTE | 2019-09-26 10:42 | ONC FU_ITS ---
[facility] Patient Note Patient: Rich Potts Unit #: [id number]: 1955 Dictated By: Cinda NarajnoDate of Visit: Sep 26, 2019 Onc MED Follow-Up/Prog Note Chief Complaint: Right colon cancer History of Present Illness: Mr. Potts is a 64-year-old gentleman who underwent surveillance colonoscopy. It revealed a mass in the hepatic flexure. A biopsy was obtained which showed adenocarcinoma arising in the background of tubular adenoma. There was another friable polyp seen which was completely removed, but did show tubular adenoma with high-grade dysplasia. CT scan of abdomen reported no direct evidence of metastatic disease. Mr Potts underwent ascending colon and terminal ileum, right hemicolectomy on 01/24/2019. The pathology reported low-grade, well to moderately differentiated infiltrating adenocarcinoma with limited penetration through muscularis propria into serosal connective tissue. Tumor arising immediately adjacent to tubulovillous adenoma with severe dysplasia T3 Smaller, separate invasive carcinoma focus measuring 1 x 1 cm. Surgical margins clear but as per discussion with Dr. 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 2 nodes were positive( microscopic clusters/ )14 node examined N1b MSI/MMR intact recommended treatment with 12 cycles of FOLFOX. He began his first cycle on 04/04/19. His dose has been modified to hold the 5 FU bolus. Mr Potts has completed 9 cycles and has had complications due to the chemotherapy of neutropenia/thrombocytopenia. His cycle 4 was held an additional week due to the neutropenia. He was due for chemo and his ANC was 900. He was delayed a week and recovered to 1800. His day 8 ANC then was 1600. His platelet count was 72,000 at that time as well. Neulasta was ordered and it began with cycle Cycle 6. He has had no further neutropenia since that addition. He has had mildly fluctuating AST/ALT.total bilirubin but has been asymptomatic. Mr. Potts is here today for follow-up. He states overall he is feeling good. He denies any fever or chills. He denies any nausea or vomiting. He states his bowels are normal for him. He states his appetite is good. His energy is still the same. He is able to do all his ADLs without any assistance. He states his had one sore on his lip that lasted 2 days and resolved on its own. His taste is still off some but no worse. He denies any persistent cold-induced neuropathy from the oxaliplatin. He has not noticed any skin rashes or peeling. He has had no evidence of jaundice. He has no new concerns today. His ECOG is 0. Past Medical History: Adjustment disorder Alcohol dependence Anxiety Chronic obstructive pulmonary disease Hyperlipidemia Hypertension Past Surgical History: Colon resection Right hemicolectomy Colonoscopy in 2019 Portacatheter placement in 2019 Allergies: No Known Allergies. Medications: Albuterol Sulfate 2 puff(s) (of 108 (90 base) mcg/act) Aerosol Powder, Breath Activated Inhalation q 4 hours PRN ALPRAZolam 1 Tablet (of 0.5 mg) Oral t.i.d. PRN Atorvastatin Calcium 1 Tablet (of 40 mg) Oral daily FLUoxetine HCl 1 Tablet (of 40 mg) Capsule Oral daily Gabapentin 1 Capsule (of 300 mg) Oral t.i.d. Lisinopril 1 Tablet (of 20 mg) Oral daily Propranolol HCl 1 Tablet (of 10 mg) Oral b.i.d. Sildenafil Citrate 1 Tablet (of 100 mg) Oral PRN Family History: Mr. Potts's mother at age 75: lung cancer. Mr. Potts's father at age 88: lung cancer. His maternal grandfather is : colon cancer. Mr. Potts has 1 sister who is : cancer of unknown primary. Social History: Mr. Potts is single and he is retired. He is a daily smoker who has smoked 0.5 packs/day for 44 years. He drinks daily. He consumes 7 drinks/day 6 days/week. He has indicated exposure to the following products: cigarettes. Mr. Potts reports the following support systems: lives with spouse, significant other, family, or friends, lives in own house, and transportation problems exist and will require assistance. His diet consists of regular meals. He indicates his activity level as: daily activities. Review Of Symptoms: Constitutional Denies fevers, chills, night sweats, excessive fatigue. Allergic/Immunologic No reactions. Eyes Denies significant visual changes. No diplopia. No amaurosis. ENMT Denies changes in hearing, sore throat, mouth sores, difficulty or changes in swallowing ability, and/or sinus drainage. Had one sore on his lower lip that lasted 2 days and resolved on its own. Endocrine No diabetes, thyroid disease or hormone replacement. Denies hot flashes or night sweats. Hematologic/Lymphatic Denies easy bruising or bleeding. The patient denies any tender or palpable lymph nodes. Respiratory Denies dyspnea on exertion, chest pain, cough or hemoptysis. Denies orthopnea. Cardiovascular Denies anginal chest pain, palpitations or orthopnea. Gastrointestinal Denies nausea, vomiting, diarrhea, GI bleeding, or constipation. Denies change in bowel habits and/or stool color, no heartburn or early satiety. Genitourinary (M) Denies hematuria, dysuria, increased frequency, urgency, hesitancy or incontinence. Musculoskeletal Denies joint pain, swelling or redness. No decreased range of motion. Integumentary Denies chronic rashes, inflammation, ulcerations or skin changes. Neurologic Denies headache, blurred vision, and no areas of focal weakness or numbness. Normal gait. No sensory problems. Psychiatric Denies insomnia, depression, ariel or mood swings. Vital Signs: Performed on Sep 26, 2019 09:44 Height - 76.50 in Weight - 179.4 lbs (LOW) BSA - 2.13 sq.m BMI - 21.55 Temperature - 97.5 F (LOW) Pulse - 74 /min Respiration - 14 /min BP - 91/66 mm(hg) O2 Sat - 99 % Pain - 0 Fatigue - 1,0 - Fully active, able to carry on all predisease activities without restrictions. (ECOG) Physical Examination: Constitutional Alert, oriented, no acute distress. Skin pink, warm and dry. Head Normocephalic; atraumatic. Eyes Conjunctivae and sclerae are clear and without icterus. Pupils are reactive and equal. ENMT No oral exudates, ulcers, masses, or mucositis. Oropharynx clear. Neck Supple without masses or thyromegaly. No jugular venous distension. Hematologic/Lymphatic No petechiae or purpura. No tender or palpable lymph nodes in the cervical or supraclavicular areas. Respiratory Lungs are clear to auscultation without rhonchi or wheezing. Cardiovascular Regular rate and rhythm of heart without murmurs,clicks, gallops or rubs. Abdomen Non-tender, non-distended, no masses, ascites. Good bowel sounds noted in all quads. No guarding or rebound tenderness. No pulsatile masses. Back/Spine Non-tender to palpation. Extremities No visible deformities, no cyanosis, clubbing or edema. Musculoskeletal No tenderness or swelling, normal range of motion without obvious weakness. Integumentary No rashes or lesions. Neurologic No sensory or motor deficits, normal cerebellar function, normal gait. Psychiatric Alert and oriented times three. Coherent speech. Verbalizes understanding of our discussions today. Laboratory:Test performed on Sep 18, 2019 12:55 Sodium 137 mmol/L Potassium 3.9 mmol/L Chloride 101 mmol/L CO2 23 mmol/L Anion Gap 16.9 BUN 9 mg/dL Creatinine 0.8 mg/dL Cr Clearance (Est) 113.6400 mL/min eGFR 98.0 mL/min Glucose 102 mg/dL Calcium 9.6 mg/dL Protein, Total 7.8 g/dL Albumin 3.4 g/dL Globulin 4.4 g/dL Bilirubin, Total 1.6 mg/dL ALT (SGPT) 72 U/L AST (SGOT) 57 U/L Alkaline Phosphatase 186 IU/L WBC 8.0 10 3/uL RBC 2.96 10 6/uL HGB 10.3 g/dL HCT 31.4 % MCV 106.1 fL MCH 34.8 pg MCHC 32.8 g/dL RDW 15.9 % Platelet Count 77 10 3/cmm MPV 10.5 fL Neutrophils 4.2 10 3/uL Lymphocytes 2.0 10 3/uL Monocytes 1.6 10 3/uL Eosinophils 0.1 10 3/uL Basophils 0.0 10 3/uL Neutrophil % 52.4 % Lymphocyte % 24.7 % Monocyte % 20.1 % Eosinophil % 1.6 % Basophils % 0.4 % Impression: Infiltrating adenocarcinoma, low-grade, well to moderately differentiated status post ascending colon and terminal ileum, right hemicolectomy done on 01/24/2019 Final pathology report showed limited penetration through muscularis propria into serosal connective tissue, smaller, separate invasive carcinoma focus measuring 1 x 1 cm Clear surgical margin but DCIS at staple line. pT3 2 out of 14 lymph nodes were examined showed microscopic clusters pN1b, MSI/MMR intact CT scan of abdomen pelvis done on 11/16/2018 showed no evidence of metastatic disease. Stage IIIB Mr Potts was offered treatment with FOLFOX. He began his first cycle on 04/04/2019. He has tolerated it well overall with the exception of thrombocytopenia and chemo induced neutropenia. He has responded well to Neulasta for the neutropenia. His platelet count is normal today at 195,000. Plan: 1. Proceed with cycle 10 of 12 FOLFOX. 2. Continue Neulasta. 3. Watch platelets as they were 77,000 last week after treatment on 09/05/2019. He is aware to call if bruising or bleeding occurs. 4. Today's labs were reviewed in detail and discussed with Mr. Potts. WBC 6.6, hemoglobin 11.2, platelets 195,000 ANC is 3100. Potassium 3.7 glucose is 83 (random), creatinine 0.7 and LFTs are improved from last visit. 5. We will plan to see Mr. Potts back in 2 weeks with CBC CMP at which time he will be due for cycle 11/12 FOLFOX. 6. Mr. Potts instructed to contact us in the interim should questions or problems arise. Signed By: Cinda Naranjo-, [facility] Andrés Barbour MD <<Signature on File>>
[2019-10-10 08:48] LABS: Basophils % 0.6 %; Eosinophils # 0.3 10^3/uL (0.0-0.8); Eosinophils % 4.5 %; Hematocrit 30.9 % (42.0-52.0); Lymphocytes # 2.3 10^3/uL (0.8-4.8); Lymphocytes % 32.2 %; Mean Corpuscular HGB Conc 32.4 g/dL (30.0-36.0); Mean Corpuscular Hemoglobin 36.4 pg (28.0-34.0); Mean Corpuscular Volume 112.4 fL (80-94); Mean Platelet Volume 9.8 fL (7.4-10.4); Monocytes # 1.3 10^3/uL (0.2-0.9); Neutrophils # 3.1 10^3/uL (1.8-7.7); Neutrophils % 43.3 %; Nucleated Red Blood Cells % 0 %; Platelet Count 107 10^3/cmm (130-400); Red Blood Count 2.75 10^6/uL (4.1-5.3); Red Cell Distribution Width 15.9 % (12.1-15.1); White Blood Count 7.1 10^3/uL (4.0-10.0)
[2019-10-10 09:05] LABS: Alanine Aminotransferase 52 U/L (0-41); Albumin Level 3.2 g/dL (3.5-5.2); Alkaline Phosphatase 144 IU/L (40-130); Anion Gap 14.4 (5-19); Aspartate Amino Transferase 47 U/L (0-40); Blood Urea Nitrogen 6 mg/dL (8-23); Calcium 9.1 mg/dL (8.5-10.5); Carbon Dioxide 24 mmol/L (22-29); Chloride 102 mmol/L (98-107); Globulin 5.3 g/dL (1.3-4.6); Glucose 144 mg/dL (65-115); Osmolality Calculated 282 mOsm/kg (285-295); Potassium 3.4 mmol/L (3.5-5.1); Sodium 137 mmol/L (136-145); Total Bilirubin 1.2 mg/dL (0.15-1.2); Total Protein 8.5 g/dL (6.6-8.7)
[2019-10-10] MEDS: dextrose 5% 250 ML 75 ML (10:55)
[2019-10-10] MEDS: dextrose 5% 250 ML 75 ML IV (10:55)
--- NOTE | 2019-10-10 13:12 | ONC FU_ITS ---
Dr. Barbour follow up note Patient: Rich Potts Unit #: [id number]: 1955 Dicatated By: Andrés Barbour M.D.Date of Visit:Oct 10, 2019 Onc Med Follow-up/Prog Note History of Present Illness: Mr. Potts is a 64-year-old gentleman who underwent surveillance colonoscopy. It revealed a mass in the hepatic flexure. A biopsy was obtained which showed adenocarcinoma arising in the background of tubular adenoma. There was another friable polyp seen which was completely removed, but did show tubular adenoma with high-grade dysplasia. CT scan of abdomen reported no direct evidence of metastatic disease. Mr Potts underwent ascending colon and terminal ileum, right hemicolectomy on 01/24/2019. The pathology reported low-grade, well to moderately differentiated infiltrating adenocarcinoma with limited penetration through muscularis propria into serosal connective tissue. Tumor arising immediately adjacent to tubulovillous adenoma with severe dysplasia T3 Smaller, separate invasive carcinoma focus measuring 1 x 1 cm. Surgical margins clear but as per discussion with Dr. 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 2 nodes were positive( microscopic clusters/ )14 node examined N1b MSI/MMR intact recommended treatment with 12 cycles of FOLFOX. He began his first cycle on 04/04/19. His dose has been modified to hold the 5 FU bolus. Mr Potts has completed 9 cycles and has had complications due to the chemotherapy of neutropenia/thrombocytopenia. His cycle 4 was held an additional week due to the neutropenia. He was due for chemo and his ANC was 900. He was delayed a week and recovered to 1800. His day 8 ANC then was 1600. His platelet count was 72,000 at that time as well. Neulasta was ordered and it began with cycle Cycle 6. He has had no further neutropenia since that addition. He has had mildly fluctuating AST/ALT.total bilirubin but has been asymptomatic. Came for follow-up, denies any specific complaints, no fever or chills, no nausea or vomiting, no mouth sores, no jaundice, no diarrhea constipation, no peripheral numbness. Tolerating systemic chemotherapy with modified dose FOLFOX with Neulasta support, well otherwise Medications: Albuterol Sulfate 2 puff(s) (of 108 (90 base) mcg/act) Aerosol Powder, Breath Activated Inhalation q 4 hours PRN, ALPRAZolam 1 Tablet (of 0.5 mg) Oral t.i.d. PRN, Atorvastatin Calcium 1 Tablet (of 40 mg) Oral daily, FLUoxetine HCl 1 Tablet (of 40 mg) Capsule Oral daily, Gabapentin 1 Capsule (of 300 mg) Oral t.i.d., Lisinopril 1 Tablet (of 20 mg) Oral daily, Propranolol HCl 1 Tablet (of 10 mg) Oral b.i.d., Sildenafil Citrate 1 Tablet (of 100 mg) Oral PRN Allergies: No Known Allergies. Review of Systems: Constitutional - Appetite has been poor and weight is stable. No fever, chills, hot flashes, or night sweats. Energy level is fair, ENMT - No sinus congestion/drainage. No mouth sores. No sore throat or difficulty swallowing, Hematologic/Lymphatic - No abnormal bruising or bleeding, Respiratory - No shortness of breath. No cough. No pleuritic pain or hemoptysis, Cardiovascular - No angina pain. No palpitations, Gastrointestinal - Positive for nausea, no vomiting. No heartburn or acid reflux. Positive for diarrhea, no constipation. No blood in the stool or black stools, Genitourinary (M) - No dysuria or hematuria. No urinary frequency. No urgency or incontinence, Musculoskeletal - No joint or bone pain, Neurologic - No headache or dizziness. No numbness/paresthesias or other focal neurologic symptoms, Psychiatric - Positive for anxiety and insomnia. Vital Signs: Performed on Oct 10, 2019 10:24 Height - 76.50 in Weight - 178.4 lbs (LOW) BSA - 2.12 sq.m BMI - 21.43 Temperature - 98.6 F Pulse - 67 /min Respiration - 24 /min BP - 118/76 mm(hg) O2 Sat - 94 % (LOW) Pain - 0 Performance Status: 0 - Fully active, able to carry on all predisease activities without restrictions. (ECOG) Physical Examination: ENMT - No oral exudates, ulcers, masses, thrush or mucositis. Oropharynx clear. Tongue normal, Respiratory - Lungs are clear to auscultation without rhonchi or wheezing, Cardiovascular - Regular rate and rhythm of heart, Abdomen - Non-tender, non-distended, Good bowel sounds. No guarding or rebound tenderness. No pulsatile masses, Extremities - no edema. Lab/Imaging: Test performed on Sep 18, 2019 12:55 Sodium 137 mmol/L Potassium 3.9 mmol/L Chloride 101 mmol/L CO2 23 mmol/L Anion Gap 16.9 BUN 9 mg/dL Creatinine 0.8 mg/dL Cr Clearance (Est) 113.6400 mL/min eGFR 98.0 mL/min Glucose 102 mg/dL Calcium 9.6 mg/dL Protein, Total 7.8 g/dL Albumin 3.4 g/dL Globulin 4.4 g/dL Bilirubin, Total 1.6 mg/dL ALT (SGPT) 72 U/L AST (SGOT) 57 U/L Alkaline Phosphatase 186 IU/L WBC 8.0 10 3/uL RBC 2.96 10 6/uL HGB 10.3 g/dL HCT 31.4 % MCV 106.1 fL MCH 34.8 pg MCHC 32.8 g/dL RDW 15.9 % Platelet Count 77 10 3/cmm MPV 10.5 fL Neutrophils 4.2 10 3/uL Lymphocytes 2.0 10 3/uL Monocytes 1.6 10 3/uL Eosinophils 0.1 10 3/uL Basophils 0.0 10 3/uL Neutrophil % 52.4 % Lymphocyte % 24.7 % Monocyte % 20.1 % Eosinophil % 1.6 % Basophils % 0.4 % Test performed on Aug 07, 2019 08:40 Manual Lymphocytes 28.5 % Manual Monocytes 17.5 % Manual Eosinophils 2.8 % Manual Basophils 0.3 % NRBCs 0.0 /100 WBC Test performed on Jun 19, 2019 10:05 Magnesium 2.2 mg/dL Impression: Infiltrating adenocarcinoma, low-grade, well to moderately differentiated status post ascending colon and terminal ileum, right hemicolectomy done on 01/24/2019 Final pathology report showed limited penetration through muscularis propria into serosal connective tissue, smaller, separate invasive carcinoma focus measuring 1 x 1 cm Clear surgical margin but DCIS at staple line. pT3 2 out of 14 lymph nodes were examined showed microscopic clusters pN1b, MSI/MMR intact CT scan of abdomen pelvis done on 11/16/2018 showed no evidence of metastatic disease. Stage IIIB Mr Potts was offered treatment with FOLFOX. He began his first cycle on 04/04/2019. He has tolerated it well overall with the exception of thrombocytopenia and chemo induced neutropenia. He has responded well to Neulasta for the neutropenia. His platelet count is normal today at 195,000. Plan: Discussed with patient regarding his labs white blood count 7.1 hemoglobin 10 crit 30.9 platelets 107,000 ANC 3100 CMP within normal limit except ALT 52 AST 47 bilirubin 1.2 and glucose 144 Clinically, patient is doing well tolerating modified dose FOLFOX well but with expected side effects e.g. progressive thrombocytopenia and persistent mildly elevated transaminases At this point we will consider 10% dose reduction in oxaliplatin/5-FU to minimize hepatic toxicity and bone marrow suppression so we'll proceed with cycle #11/12 with modified dose FOLFOX with Neulasta support to prevent chemotherapy-induced neutropenia. Patient return to clinic in 2 weeks with CBC and CMP and if reasonable then final dose of adjuvant therapy Signed By: Andrés Barbour M.D. <<Signature on File>>
== END 2019-10-17 23:59 | disposition home or self-care (01) ==
LOC: ONCMED 05:54
PROVIDERS: Family Provider Family Medicine; PCP Family Medicine; Visit Provider Internal Medicine Hematology & Oncology
DX: Z51.11 Encounter for antineoplastic chemotherapy (principal); C18.3 Malignant neoplasm of hepatic flexure; C77.2 Secondary and unspecified malignant neoplasm of intra-abdominal lymph nodes; D70.1 Agranulocytosis secondary to cancer chemotherapy; T45.1X5A Adverse effect of antineoplastic and immunosuppressive drugs, initial encounter; Z45.2 Encounter for adjustment and management of vascular access device; D69.59 Other secondary thrombocytopenia; F43.20 Adjustment disorder, unspecified; F10.20 Alcohol dependence, uncomplicated; F41.9 Anxiety disorder, unspecified; J44.9 Chronic obstructive pulmonary disease, unspecified; E78.5 Hyperlipidemia, unspecified; I10 Essential (primary) hypertension; F17.210 Nicotine dependence, cigarettes, uncomplicated; Z79.51 Long term (current) use of inhaled steroids; Z79.899 Other long term (current) drug therapy; Z90.49 Acquired absence of other specified parts of digestive tract
CPT/HCPCS: 36415; 80053; 85025; 96367; 96368; 96372; 96401; 96413; 96415; 96416; 96523; 99214; J0640; J1100; J2469; J2505; J9263

== ENCOUNTER 2019-11-07 06:47 | Outpatient (RCR) | payer OTHER, SELFPAY ==
[2019-10-23 19:37] LABS: Basophils # 0.1 10^3/uL (0.0-0.1); Basophils % 0.6 %; Eosinophils # 0.2 10^3/uL (0.0-0.8); Eosinophils % 2.8 %; Hematocrit 35.7 % (42.0-52.0); Hemoglobin 11.4 g/dL (11.7-16.6); Lymphocytes % 23.9 %; Mean Corpuscular HGB Conc 31.9 g/dL (30.0-36.0); Mean Corpuscular Hemoglobin 36.4 pg (28.0-34.0); Mean Corpuscular Volume 114.1 fL (80-94); Mean Platelet Volume 9.8 fL (7.4-10.4); Monocytes % 12.1 %; Neutrophils # 5.1 10^3/uL (1.8-7.7); Nucleated Red Blood Cells % 0 %; Platelet Count 116 10^3/cmm (130-400); Red Blood Count 3.13 10^6/uL (4.1-5.3); Red Cell Distribution Width 15.8 % (12.1-15.1); White Blood Count 8.5 10^3/uL (4.0-10.0)
[2019-10-23 19:52] LABS: Alanine Aminotransferase 66 U/L (0-41); Albumin Level 3.7 g/dL (3.5-5.2); Alkaline Phosphatase 200 IU/L (40-130); Anion Gap 16.7 (5-19); Aspartate Amino Transferase 63 U/L (0-40); Blood Urea Nitrogen 8 mg/dL (8-23); Calcium 9.6 mg/dL (8.5-10.5); Carbon Dioxide 24 mmol/L (22-29); Chloride 101 mmol/L (98-107); Glomerular Filtration Rate 85.5 mL/min (90-130); Glucose 95 mg/dL (65-115); Osmolality Calculated 282 mOsm/kg (285-295); Potassium 3.7 mmol/L (3.5-5.1); Sodium 138 mmol/L (136-145); Total Bilirubin 1.7 mg/dL (0.15-1.2); Total Protein 9.7 g/dL (6.6-8.7)
--- NOTE | 2019-10-24 09:25 | ONC FU_ITS ---
Dr. Barbour follow up note Patient: Rich Potts Unit #: [id number]: 1955 Dicatated By: Andrés Barbour M.D.Date of Visit:Oct 24, 2019 Onc Med Follow-up/Prog Note History of Present Illness: Mr. Potts is a 64-year-old gentleman who underwent surveillance colonoscopy. It revealed a mass in the hepatic flexure. A biopsy was obtained which showed adenocarcinoma arising in the background of tubular adenoma. There was another friable polyp seen which was completely removed, but did show tubular adenoma with high-grade dysplasia. CT scan of abdomen reported no direct evidence of metastatic disease. Mr Potts underwent ascending colon and terminal ileum, right hemicolectomy on 01/24/2019. The pathology reported low-grade, well to moderately differentiated infiltrating adenocarcinoma with limited penetration through muscularis propria into serosal connective tissue. Tumor arising immediately adjacent to tubulovillous adenoma with severe dysplasia T3 Smaller, separate invasive carcinoma focus measuring 1 x 1 cm. Surgical margins clear but as per discussion with Dr. 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 2 nodes were positive( microscopic clusters/ )14 node examined N1b MSI/MMR intact recommended treatment with 12 cycles of FOLFOX. He began his first cycle on 04/04/19. His dose has been modified to hold the 5 FU bolus. Mr Potts has completed 11 cycles and has had complications due to the chemotherapy of neutropenia/thrombocytopenia. His cycle 4 was held an additional week due to the neutropenia. He was due for chemo and his ANC was 900. He was delayed a week and recovered to 1800. His day 8 ANC then was 1600. His platelet count was 72,000 at that time as well. Neulasta was ordered and it began with cycle Cycle 6. He has had no further neutropenia since that addition. He has had mildly fluctuating AST/ALT.total bilirubin but has been asymptomatic. Came for follow-up, denies any specific complaints, no fevers chills, no nausea or vomiting, no diarrhea constipation, no jaundice, no abdominal pain, no mouth sores. Tolerating systemic chemotherapy with FOLFOX well Medications: Albuterol Sulfate 2 puff(s) (of 108 (90 base) mcg/act) Aerosol Powder, Breath Activated Inhalation q 4 hours PRN, ALPRAZolam 1 Tablet (of 0.5 mg) Oral t.i.d. PRN, Atorvastatin Calcium 1 Tablet (of 40 mg) Oral daily, FLUoxetine HCl 1 Tablet (of 40 mg) Capsule Oral daily, Gabapentin 1 Capsule (of 300 mg) Oral t.i.d., Lisinopril 1 Tablet (of 20 mg) Oral daily, Propranolol HCl 1 Tablet (of 10 mg) Oral b.i.d., Sildenafil Citrate 1 Tablet (of 100 mg) Oral PRN Allergies: No Known Allergies. Review of Systems: Review of Systems is not available for this patient. Vital Signs: Performed on Oct 24, 2019 09:00 Height - 76.50 in Weight - 174.6 lbs (LOW) BSA - 2.10 sq.m BMI - 20.98 Temperature - 97.6 F (LOW) Pulse - 71 /min Respiration - 18 /min BP - 111/62 mm(hg) O2 Sat - 98 % Pain - 0 Performance Status: 0 - Fully active, able to carry on all predisease activities without restrictions. (ECOG) Physical Examination: ENMT - . No oral exudates, ulcers, masses, thrush or mucositis. Oropharynx clear. Tongue normal, Respiratory - Lungs are clear to auscultation, Cardiovascular - Regular rate and rhythm of heart, Abdomen - Non-tender, non-distended, . Good bowel sounds. No guarding or rebound tenderness. No pulsatile masses, Extremities - no edema. Lab/Imaging: Test performed on Oct 23, 2019 14:30 Sodium 138 mmol/L Potassium 3.7 mmol/L Chloride 101 mmol/L CO2 24 mmol/L Anion Gap 16.7 BUN 8 mg/dL Creatinine 0.9 mg/dL Cr Clearance (Est) 101.0100 mL/min eGFR 85.5 mL/min Glucose 95 mg/dL Calcium 9.6 mg/dL Protein, Total 9.7 g/dL Albumin 3.7 g/dL Globulin 6.0 g/dL Bilirubin, Total 1.7 mg/dL ALT (SGPT) 66 U/L AST (SGOT) 63 U/L Alkaline Phosphatase 200 IU/L WBC 8.5 10 3/uL RBC 3.13 10 6/uL HGB 11.4 g/dL HCT 35.7 % MCV 114.1 fL MCH 36.4 pg MCHC 31.9 g/dL RDW 15.8 % Platelet Count 116 10 3/cmm MPV 9.8 fL Neutrophils 5.1 10 3/uL Lymphocytes 2.0 10 3/uL Monocytes 1.0 10 3/uL Eosinophils 0.2 10 3/uL Basophils 0.1 10 3/uL Neutrophil % 60.0 % Lymphocyte % 23.9 % Monocyte % 12.1 % Eosinophil % 2.8 % Basophils % 0.6 % Test performed on Aug 07, 2019 08:40 Manual Lymphocytes 28.5 % Manual Monocytes 17.5 % Manual Eosinophils 2.8 % Manual Basophils 0.3 % NRBCs 0.0 /100 WBC Test performed on Jun 19, 2019 10:05 Magnesium 2.2 mg/dL Impression: Infiltrating adenocarcinoma, low-grade, well to moderately differentiated status post ascending colon and terminal ileum, right hemicolectomy done on 01/24/2019 Final pathology report showed limited penetration through muscularis propria into serosal connective tissue, smaller, separate invasive carcinoma focus measuring 1 x 1 cm Clear surgical margin but DCIS at staple line. pT3 2 out of 14 lymph nodes were examined showed microscopic clusters pN1b, MSI/MMR intact CT scan of abdomen pelvis done on 11/16/2018 showed no evidence of metastatic disease. Stage IIIB Mr Potts was offered treatment with FOLFOX. He began his first cycle on 04/04/2019. He has tolerated it well overall with the exception of thrombocytopenia and chemo induced neutropenia. He has responded well to Neulasta for the neutropenia. Plan: Discussed with patient regarding his labs white blood count 8.5 hemoglobin 11.4 crit 35.7 platelets 116,000 CMP within normal limit except bilirubin 1.7 compared to 1.2 2 weeks ago and ALT 66 AST 63 and alkaline phosphatase 200 compared to 52/47/144 on 10/10/2019. At that time chemotherapy was reduced by 10% Clinically, patient is doing well, no new signs symptoms, tolerating adjuvant therapy with FOLFOX well but with expected side effects. Poor appetite, weight loss requiring Neulasta to maintain chemotherapy schedule and to prevent neutropenia. During his last visit his chemotherapy dose was reduced by 10% because of fluctuating transaminases and mild hyperbilirubinemia and today's lab shows even with reduction in the dose of chemotherapy, there is increase in bilirubin level as well as transaminases and alkaline phosphatase. At this point we'll hold his final dose of adjuvant chemotherapy and consider right upper quadrant sonogram to rule out intrahepatic or extrahepatic pathology causing fluctuating in bilirubin/transaminases level. Mild anemia, hemoglobin stable rather improving and mild thrombocytopenia, platelet count is improving. Patient return to clinic in 1 week with CBC CMP Signed By: Andrés Barbour M.D. <<Signature on File>>
--- NOTE | 2019-10-30 | US_ITS ---
WS: [id number] ULTRASOUND ABDOMEN LIMITED CLINICAL INFORMATION: NEOPLASM HEPATIC FLEXURE, AGRANULOCYTOSIS - CHEMO COMPARISON: None. FINDINGS: Liver Size: Normal. Craniocaudal length: 15.9 cm. Echogenicity: Normal. Surface nodularity: None. Mass (size and location): None. Bile ducts Intrahepatic ducts: Normal. Common bile duct diameter: 0.2 cm. Gallbladder Normal. Gallstones: None. Gallbladder sludge: None. Gallbladder wall thickening: None. Pericholecystic fluid: None. Sonographic Man sign: Absent. Pancreas Normal as visualized. Right kidney: Normal. Hydronephrosis: None. Size: 9.7 cm x 5.6 cm x 4.7 cm. Abdominal aorta and IVC Visualized portions are normal. Ascites: None. US/US gall bladder [id number] IMPRESSION: Normal abdominal ultrasound
[2019-10-31 20:35] LABS: Basophils % 0.6 %; Eosinophils # 0.2 10^3/uL (0.0-0.8); Eosinophils % 2.3 %; Hematocrit 32.9 % (42.0-52.0); Hemoglobin 10.9 g/dL (11.7-16.6); Lymphocytes # 2.2 10^3/uL (0.8-4.8); Lymphocytes % 32.7 %; Mean Corpuscular HGB Conc 33.1 g/dL (30.0-36.0); Mean Corpuscular Hemoglobin 37.8 pg (28.0-34.0); Mean Corpuscular Volume 114.2 fL (80-94); Mean Platelet Volume 9.5 fL (7.4-10.4); Monocytes # 1.3 10^3/uL (0.2-0.9); Monocytes % 18.3 %; Neutrophils # 3.1 10^3/uL (1.8-7.7); Neutrophils % 45.8 %; Nucleated Red Blood Cells % 0 %; Platelet Count 206 10^3/cmm (130-400); Red Blood Count 2.88 10^6/uL (4.1-5.3); Red Cell Distribution Width 14.6 % (12.1-15.1); White Blood Count 6.8 10^3/uL (4.0-10.0)
[2019-10-31 20:54] LABS: Alanine Aminotransferase 65 U/L (0-41); Albumin Level 3.5 g/dL (3.5-5.2); Alkaline Phosphatase 139 IU/L (40-130); Anion Gap 16.8 (5-19); Aspartate Amino Transferase 63 U/L (0-40); Blood Urea Nitrogen 11 mg/dL (8-23); Calcium 9.6 mg/dL (8.5-10.5); Carbon Dioxide 23 mmol/L (22-29); Chloride 100 mmol/L (98-107); Globulin 5.5 g/dL (1.3-4.6); Glomerular Filtration Rate 136.5 mL/min (90-130); Glucose 76 mg/dL (65-115); Osmolality Calculated 277 mOsm/kg (285-295); Potassium 3.8 mmol/L (3.5-5.1); Sodium 136 mmol/L (136-145); Total Bilirubin 1.3 mg/dL (0.15-1.2)
[2019-11-01 11:05] LABS: Hepatitis A Antibody IgM. Non-Reactive (Nonreactive); Hepatitis B Surface AB. 3.5 (0-8.5); Hepatitis B Surface Antigen. Non-Reactive (Nonreactive); Hepatitis C Virus Antibody Non-Reactive (Nonreactive)
--- NOTE | 2019-11-01 15:33 | ONC FU_ITS ---
Dr. Barbour follow up note Patient: Rich Potts Unit #: [id number]: 1955 Dicatated By: Andrés Barbour M.D.Date of Visit:Nov 01, 2019 Onc Med Follow-up/Prog Note History of Present Illness: Mr. Potts is a 64-year-old gentleman who underwent surveillance colonoscopy. It revealed a mass in the hepatic flexure. A biopsy was obtained which showed adenocarcinoma arising in the background of tubular adenoma. There was another friable polyp seen which was completely removed, but did show tubular adenoma with high-grade dysplasia. CT scan of abdomen reported no direct evidence of metastatic disease. Mr Potts underwent ascending colon and terminal ileum, right hemicolectomy on 01/24/2019. The pathology reported low-grade, well to moderately differentiated infiltrating adenocarcinoma with limited penetration through muscularis propria into serosal connective tissue. Tumor arising immediately adjacent to tubulovillous adenoma with severe dysplasia T3 Smaller, separate invasive carcinoma focus measuring 1 x 1 cm. Surgical margins clear but as per discussion with Dr. 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 2 nodes were positive( microscopic clusters/ )14 node examined N1b MSI/MMR intact recommended treatment with 12 cycles of FOLFOX. He began his first cycle on 04/04/19. His dose has been modified to hold the 5 FU bolus. Mr Potts has completed 11 cycles and has had complications due to the chemotherapy of neutropenia/thrombocytopenia. His cycle 4 was held an additional week due to the neutropenia. He was due for chemo and his ANC was 900. He was delayed a week and recovered to 1800. His day 8 ANC then was 1600. His platelet count was 72,000 at that time as well. Neulasta was ordered and it began with cycle Cycle 6. He has had no further neutropenia since that addition. He has had mildly fluctuating AST/ALT.total bilirubin but has been asymptomatic. his adjuvant chemotherapy was concluded after 11 cycles of FOLFOX as patient continued to have mildly fluctuated ALT STN bilirubin etiology was unclear and abdominal sonogram shows no abnormality in the liver and biliary drainage system. Abdominal sonogram was done on 11/16/2019 showed no abnormality seen in the liver or bile duct drainage system. Came for follow-up, denies any specific complaints, no nausea or vomiting no diarrhea or fever no jaundice, no abdominal pain, appetite is good, no mouth sores or skin rash. Medications: Albuterol Sulfate 2 puff(s) (of 108 (90 base) mcg/act) Aerosol Powder, Breath Activated Inhalation q 4 hours PRN, ALPRAZolam 1 Tablet (of 0.5 mg) Oral t.i.d. PRN, Atorvastatin Calcium 1 Tablet (of 40 mg) Oral daily, FLUoxetine HCl 1 Tablet (of 40 mg) Capsule Oral daily, Gabapentin 1 Capsule (of 300 mg) Oral t.i.d., Lisinopril 1 Tablet (of 20 mg) Oral daily, Propranolol HCl 1 Tablet (of 10 mg) Oral b.i.d., Sildenafil Citrate 1 Tablet (of 100 mg) Oral PRN Allergies: No Known Allergies. Review of Systems: Review of Systems is not available for this patient. Vital Signs: Performed on Nov 01, 2019 08:33 Height - 76.50 in Weight - 177.4 lbs (HIGH) BSA - 2.12 sq.m BMI - 21.31 Temperature - 96.5 F (LOW) Pulse - 72 /min Respiration - 17 /min BP - 103/60 mm(hg) O2 Sat - 98 % Pain - 0 Performance Status: 0 - Fully active, able to carry on all predisease activities without restrictions. (ECOG) Physical Examination: ENMT - no mouth sores, Respiratory - Lungs are clear, Cardiovascular - Regular rate and rhythm, Abdomen - Non-tender Good bowel sounds. No guarding or rebound tenderness, Extremities - no edema. Lab/Imaging: Test performed on Oct 23, 2019 14:30 Sodium 138 mmol/L Potassium 3.7 mmol/L Chloride 101 mmol/L CO2 24 mmol/L Anion Gap 16.7 BUN 8 mg/dL Creatinine 0.9 mg/dL Cr Clearance (Est) 101.0100 mL/min eGFR 85.5 mL/min Glucose 95 mg/dL Calcium 9.6 mg/dL Protein, Total 9.7 g/dL Albumin 3.7 g/dL Globulin 6.0 g/dL Bilirubin, Total 1.7 mg/dL ALT (SGPT) 66 U/L AST (SGOT) 63 U/L Alkaline Phosphatase 200 IU/L WBC 8.5 10 3/uL RBC 3.13 10 6/uL HGB 11.4 g/dL HCT 35.7 % MCV 114.1 fL MCH 36.4 pg MCHC 31.9 g/dL RDW 15.8 % Platelet Count 116 10 3/cmm MPV 9.8 fL Neutrophils 5.1 10 3/uL Lymphocytes 2.0 10 3/uL Monocytes 1.0 10 3/uL Eosinophils 0.2 10 3/uL Basophils 0.1 10 3/uL Neutrophil % 60.0 % Lymphocyte % 23.9 % Monocyte % 12.1 % Eosinophil % 2.8 % Basophils % 0.6 % Test performed on Aug 07, 2019 08:40 Manual Lymphocytes 28.5 % Manual Monocytes 17.5 % Manual Eosinophils 2.8 % Manual Basophils 0.3 % NRBCs 0.0 /100 WBC Test performed on Jun 19, 2019 10:05 Magnesium 2.2 mg/dL Impression: Infiltrating adenocarcinoma, low-grade, well to moderately differentiated status post ascending colon and terminal ileum, right hemicolectomy done on 01/24/2019 Final pathology report showed limited penetration through muscularis propria into serosal connective tissue, smaller, separate invasive carcinoma focus measuring 1 x 1 cm Clear surgical margin but DCIS at staple line. pT3 2 out of 14 lymph nodes were examined showed microscopic clusters pN1b, MSI/MMR intact CT scan of abdomen pelvis done on 11/16/2018 showed no evidence of metastatic disease. Stage IIIB Mr Potts was offered treatment with FOLFOX. He began his first cycle on 04/04/2019. He has tolerated it well overall with the exception of thrombocytopenia and chemo induced neutropenia. He has responded well to Neulasta for the neutropenia. Plan: Discussed with patient regarding his labs white blood count 6.8 hemoglobin 10.9 hematocrit 32.9 platelets 206,000 CMP within normal limit except ALT 65 AST 63, bilirubin 1.3 alkaline phosphatase 139 Clinically, patient is doing well, tolerating adjuvant chemotherapy with FOLFOX well, his FOLFOX dose was modified because of elevated AST ALT/bilirubin/alkaline phosphatase, there is a some improvement in his alkaline phosphatase and bilirubin whereas ALT AST remained mildly elevated and stable. Right upper quadrant sonogram showed no abnormality in the liver or biliary drainage system so possibilities causing these abnormal labs could be hepatitis or chemotherapy-induced, At this point, patient and family has decided not to pursue further chemotherapy if is causing liver damage moreover he has completed 05/30 recommended dose of FOLFOX. So we will conclude his adjuvant chemotherapy and in the meantime we will consider hepatitis profile to rule out viral hepatitis and also his CMP showed elevated total protein and globin which could be due to acute inflammation But we will consider serum protein electrophoresis to rule out plasma cell disorder.He will return to clinic in 2 weeks with CBC CMP. And with hepatitis profile. Signed By: Andrés Barbour M.D. <<Signature on File>>
[2019-11-02 14:30] LABS: ABNORMAL PROTEIN BAND 1 1.6 g/dL (NONE DETECTED); ALBUMIN 3.3 g/dL (3.8-4.8); ALPHA 1 GLOBULIN 0.3 g/dL (0.2-0.3); ALPHA 2 GLOBULIN 0.6 g/dL (0.5-0.9); BETA 1 GLOBULIN 0.5 g/dL (0.4-0.6); BETA 2 GLOBULIN 0.7 g/dL (0.2-0.5); GAMMA GLOBULIN 2.7 g/dL (0.8-1.7)
[2019-11-06 19:32] LABS: Basophils % 0.7 %; Eosinophils # 0.2 10^3/uL (0.0-0.8); Eosinophils % 3.3 %; Hematocrit 35.4 % (42.0-52.0); Hemoglobin 11.2 g/dL (11.7-16.6); Lymphocytes # 2.2 10^3/uL (0.8-4.8); Mean Corpuscular HGB Conc 31.6 g/dL (30.0-36.0); Mean Corpuscular Hemoglobin 36.5 pg (28.0-34.0); Mean Corpuscular Volume 115.3 fL (80-94); Mean Platelet Volume 9.7 fL (7.4-10.4); Monocytes # 0.9 10^3/uL (0.2-0.9); Monocytes % 17.3 %; Neutrophils % 37.5 %; Nucleated Red Blood Cells % 0 %; Platelet Count 170 10^3/cmm (130-400); Red Blood Count 3.07 10^6/uL (4.1-5.3); Red Cell Distribution Width 14.2 % (12.1-15.1); White Blood Count 5.4 10^3/uL (4.0-10.0)
[2019-11-06 20:47] LABS: Alanine Aminotransferase 61 U/L (0-41); Albumin Level 3.4 g/dL (3.5-5.2); Alkaline Phosphatase 121 IU/L (40-130); Aspartate Amino Transferase 60 U/L (0-40); Blood Urea Nitrogen 9 mg/dL (8-23); Calcium 9.7 mg/dL (8.5-10.5); Carbon Dioxide 22 mmol/L (22-29); Chloride 102 mmol/L (98-107); Globulin 5.6 g/dL (1.3-4.6); Glomerular Filtration Rate 136.5 mL/min (90-130); Glucose 71 mg/dL (65-115); Osmolality Calculated 282 mOsm/kg (285-295); Sodium 139 mmol/L (136-145); Total Bilirubin 1.3 mg/dL (0.15-1.2)
--- NOTE | 2019-11-07 14:51 | ONC FU_ITS ---
Dr. Barbour follow up note Patient: Rich Potts Unit #: [id number]: 1955 Dicatated By: Andrés Barbour M.D.Date of Visit:Nov 07, 2019 Onc Med Follow-up/Prog Note History of Present Illness: Mr. Potts is a 64-year-old gentleman who underwent surveillance colonoscopy. It revealed a mass in the hepatic flexure. A biopsy was obtained which showed adenocarcinoma arising in the background of tubular adenoma. There was another friable polyp seen which was completely removed, but did show tubular adenoma with high-grade dysplasia. CT scan of abdomen reported no direct evidence of metastatic disease. Mr Potts underwent ascending colon and terminal ileum, right hemicolectomy on 01/24/2019. The pathology reported low-grade, well to moderately differentiated infiltrating adenocarcinoma with limited penetration through muscularis propria into serosal connective tissue. Tumor arising immediately adjacent to tubulovillous adenoma with severe dysplasia T3 Smaller, separate invasive carcinoma focus measuring 1 x 1 cm. Surgical margins clear but as per discussion with Dr. 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 2 nodes were positive( microscopic clusters/ )14 node examined N1b MSI/MMR intact recommended treatment with 12 cycles of FOLFOX. He began his first cycle on 04/04/19. His dose has been modified to hold the 5 FU bolus. Mr Potts has completed 11 cycles and has had complications due to the chemotherapy of neutropenia/thrombocytopenia. His cycle 4 was held an additional week due to the neutropenia. He was due for chemo and his ANC was 900. He was delayed a week and recovered to 1800. His day 8 ANC then was 1600. His platelet count was 72,000 at that time as well. Neulasta was ordered and it began with cycle Cycle 6. He has had no further neutropenia since that addition. He has had mildly fluctuating AST/ALT.total bilirubin but has been asymptomatic. his adjuvant chemotherapy was concluded after 11 cycles of FOLFOX as patient continued to have mildly fluctuated ALT STN bilirubin etiology was unclear and abdominal sonogram shows no abnormality in the liver and biliary drainage system. Abdominal sonogram was done on 11/16/2019 showed no abnormality seen in the liver or bile duct drainage system. Hepatitis profile checked on 11/01/2019 shows nonreactive with hepatitis B surface antibody 3.5, and consistent with immunity, hepatitis C is nonreactive Serum protein electrophoresis confirmed restricted band migrating in gamma region, immunofixation confirmed IgM kappa monoclonal band present. And follow-up CMP shows persistent mildly elevated but stable bilirubin and AST/ALT. Evaluated via telemedicine, patient denies any specific complaints, no fever or chills, no nausea or vomiting, no diarrhea constipation, no jaundice, no abdominal pain, no night sweats, no weight loss, no peripheral lymphadenopathy, no abdominal distention., No recent fever Medications: Albuterol Sulfate 2 puff(s) (of 108 (90 base) mcg/act) Aerosol Powder, Breath Activated Inhalation q 4 hours PRN, ALPRAZolam 1 Tablet (of 0.5 mg) Oral t.i.d. PRN, Atorvastatin Calcium 1 Tablet (of 40 mg) Oral daily, FLUoxetine HCl 1 Tablet (of 40 mg) Capsule Oral daily, Gabapentin 1 Capsule (of 300 mg) Oral t.i.d., Lisinopril 1 Tablet (of 20 mg) Oral daily, Propranolol HCl 1 Tablet (of 10 mg) Oral b.i.d., Sildenafil Citrate 1 Tablet (of 100 mg) Oral PRN Allergies: No Known Allergies. Review of Systems: Review of Systems is not available for this patient. Vital Signs: Vitals are not available for this patient. Performance Status: 0 - Fully active, able to carry on all predisease activities without restrictions. (ECOG) Physical Examination: ENMT - denies mouth sores, Respiratory - denies any shortness of breath or wheezing, Cardiovascular - denies any tachycardia or palpitation, Abdomen - patient denies any abdominal pain or fullness, Extremities - no visible edema. Lab/Imaging: Test performed on Oct 31, 2019 15:00 Sodium 136 mmol/L Potassium 3.8 mmol/L Chloride 100 mmol/L CO2 23 mmol/L Anion Gap 16.8 BUN 11 mg/dL Creatinine 0.6 mg/dL Cr Clearance (Est) 151.5200 mL/min eGFR 136.5 mL/min Glucose 76 mg/dL Calcium 9.6 mg/dL Protein, Total 9.0 g/dL Albumin 3.5 g/dL Globulin 5.5 g/dL Bilirubin, Total 1.3 mg/dL ALT (SGPT) 65 U/L AST (SGOT) 63 U/L Alkaline Phosphatase 139 IU/L WBC 6.8 10 3/uL RBC 2.88 10 6/uL HGB 10.9 g/dL HCT 32.9 % MCV 114.2 fL MCH 37.8 pg MCHC 33.1 g/dL RDW 14.6 % Platelet Count 206 10 3/cmm MPV 9.5 fL Neutrophils 3.1 10 3/uL Lymphocytes 2.2 10 3/uL Monocytes 1.3 10 3/uL Eosinophils 0.2 10 3/uL Basophils 0.0 10 3/uL Neutrophil % 45.8 % Lymphocyte % 32.7 % Monocyte % 18.3 % Eosinophil % 2.3 % Basophils % 0.6 % Test performed on Aug 07, 2019 08:40 Manual Lymphocytes 28.5 % Manual Monocytes 17.5 % Manual Eosinophils 2.8 % Manual Basophils 0.3 % NRBCs 0.0 /100 WBC Test performed on Jun 19, 2019 10:05 Magnesium 2.2 mg/dL Impression: Infiltrating adenocarcinoma, low-grade, well to moderately differentiated status post ascending colon and terminal ileum, right hemicolectomy done on 01/24/2019 Final pathology report showed limited penetration through muscularis propria into serosal connective tissue, smaller, separate invasive carcinoma focus measuring 1 x 1 cm Clear surgical margin but DCIS at staple line. pT3 2 out of 14 lymph nodes were examined showed microscopic clusters pN1b, MSI/MMR intact CT scan of abdomen pelvis done on 11/16/2018 showed no evidence of metastatic disease. Stage IIIB Mr Potts was offered treatment with FOLFOX. He began his first cycle on 04/04/2019. He has tolerated it well overall with the exception of thrombocytopenia and chemo induced neutropenia. He has responded well to Neulasta for the neutropenia. patient completed 11/12 cycles ofmodified dose FOLFOX on 10/10/2019, chemotherapy was concluded after 11 doses because of persistent abnormal AST/ALT and mildly elevated bilirubin around 1.3. Hepatitis profile was ordered which was nonreactive. His CMP also showed elevated total protein, for which serum protein electrophoresis was done on 11/01/2019 which confirmed restrictive band migrating in the gamma region, immunofixation confirmed IgM kappa monoclonal band. Plan: Discussed with patient regarding his labs white blood count 5.4 hemoglobin 11.2 hematocrit 35.4 platelets 170,000 CMP within normal limit except ALT 61 AST 60 bilirubin 1.3, no significant change from previous labs and elevated total protein at 9, serum protein electrophoresis confirmed monoclonal gammopathy immunofixation confirmed IgM kappa monoclonal gammopathy. Hepatitis profile nonreactive, Clinically, patient is doing well with no signs symptom suggestive of recurrence of disease but his follow-up lab shows persistently elevated AST/ALT and mildly elevated bilirubin, no change from previous labs. And also his total protein was mildly elevated, serum protein electrophoresis was done which confirmed monoclonal gammopathy and immunofixation confirmed IgM kappa monoclonal gammopathy etiology unclear IgM MGUS or Waldenstr???m's macroglobulinemia plasma cell disorder like myeloma but less likely. Or lymphoproliferative disorder or amyloidosis. We will repeat his liver function test and quantitative immunoglobulins in 2 weeks and if elevated consider CT scan of chest abdomen pelvis and also bone marrow evaluation to rule out plasma cell disorder Signed By: Andrés Barbour M.D. <<Signature on File>>
== END 2019-11-16 23:59 | disposition home or self-care (01) ==
LOC: ONCMED 06:47
PROVIDERS: Family Provider Family Medicine; PCP Family Medicine; Visit Provider Internal Medicine Hematology & Oncology
DX: C18.3 Malignant neoplasm of hepatic flexure (principal); C77.2 Secondary and unspecified malignant neoplasm of intra-abdominal lymph nodes; R94.5 Abnormal results of liver function studies; D47.2 Monoclonal gammopathy; D70.1 Agranulocytosis secondary to cancer chemotherapy; D69.59 Other secondary thrombocytopenia; T45.1X5A Adverse effect of antineoplastic and immunosuppressive drugs, initial encounter; Z11.59 Encounter for screening for other viral diseases; Z79.899 Other long term (current) drug therapy
CPT/HCPCS: 36415; 36591; 76705; 80053; 84155; 84165; 85025; 86705; 86706; 86709; 86803; 87340; 99214; G0463

== ENCOUNTER 2019-11-21 06:51 | Outpatient (RCR) | payer OTHER, SELFPAY ==
[2019-11-20 13:06] LABS: Alanine Aminotransferase 49 U/L (0-41); Albumin Level 3.5 g/dL (3.5-5.2); Alkaline Phosphatase 129 IU/L (40-130); Aspartate Amino Transferase 46 U/L (0-40); Blood Urea Nitrogen 9 mg/dL (8-23); Calcium 9.8 mg/dL (8.5-10.5); Carbon Dioxide 23 mmol/L (22-29); Chloride 103 mmol/L (98-107); Globulin 5.4 g/dL (1.3-4.6); Glucose 90 mg/dL (65-115); Immunoglobulin IGA 269 mg/dL (70-400); Immunoglobulin IGG 2151 mg/dL (700-1600); Lactate Dehydrogenase 355 U/L (135-225); Osmolality Calculated 282 mOsm/kg (285-295); Sodium 138 mmol/L (136-145); Total Bilirubin 1.2 mg/dL (0.15-1.2); Total Protein 8.9 g/dL (6.6-8.7)
[2019-11-20 13:08] LABS: Basophils # 0.1 10^3/uL (0.0-0.1); Eosinophils # 0.3 10^3/uL (0.0-0.8); Eosinophils % 4.8 %; Hemoglobin 11.7 g/dL (11.7-16.6); Lymphocytes # 2.1 10^3/uL (0.8-4.8); Lymphocytes % 35.6 %; Mean Corpuscular HGB Conc 32.5 g/dL (30.0-36.0); Mean Corpuscular Hemoglobin 36.7 pg (28.0-34.0); Mean Corpuscular Volume 112.9 fL (80-94); Mean Platelet Volume 9.4 fL (7.4-10.4); Monocytes % 16.2 %; Neutrophils # 2.5 10^3/uL (1.8-7.7); Neutrophils % 42.2 %; Nucleated Red Blood Cells % 0 %; Platelet Count 182 10^3/cmm (130-400); Red Blood Count 3.19 10^6/uL (4.1-5.3); Red Cell Distribution Width 12.1 % (12.1-15.1)
[2019-11-20 14:09] LABS: Immunoglobulin IGM 1905 mg/dL (40-230)
--- NOTE | 2020-01-01 17:25 | ONC FU_ITS ---
Dr. Barbour follow up note Patient: Rich Potts Unit #: [id number]: 1955 Dicatated By: Andrés Barbour M.D.Date of Visit:November 21, 2019 Onc Med Follow-up/Prog Note History of Present Illness: Mr. Potts is a 64-year-old gentleman who underwent surveillance colonoscopy. It revealed a mass in the hepatic flexure. A biopsy was obtained which showed adenocarcinoma arising in the background of tubular adenoma. There was another friable polyp seen which was completely removed, but did show tubular adenoma with high-grade dysplasia. CT scan of abdomen reported no direct evidence of metastatic disease. Mr Potts underwent ascending colon and terminal ileum, right hemicolectomy on 01/24/2019. The pathology reported low-grade, well to moderately differentiated infiltrating adenocarcinoma with limited penetration through muscularis propria into serosal connective tissue. Tumor arising immediately adjacent to tubulovillous adenoma with severe dysplasia T3 Smaller, separate invasive carcinoma focus measuring 1 x 1 cm. Surgical margins clear but as per discussion with Dr. 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 2 nodes were positive( microscopic clusters/ )14 node examined N1b MSI/MMR intact recommended treatment with 12 cycles of FOLFOX. He began his first cycle on 04/04/19. His dose has been modified to hold the 5 FU bolus. Mr Potts has completed 11 cycles and has had complications due to the chemotherapy of neutropenia/thrombocytopenia. His cycle 4 was held an additional week due to the neutropenia. He was due for chemo and his ANC was 900. He was delayed a week and recovered to 1800. His day 8 ANC then was 1600. His platelet count was 72,000 at that time as well. Neulasta was ordered and it began with cycle Cycle 6. He has had no further neutropenia since that addition. He has had mildly fluctuating AST/ALT.total bilirubin but has been asymptomatic. his adjuvant chemotherapy was concluded after 11 cycles of FOLFOX as patient continued to have mildly fluctuated ALT AST and bilirubin etiology was unclear and abdominal sonogram shows no abnormality in the liver and biliary drainage system. Abdominal sonogram was done on 11/16/2019 showed no abnormality seen in the liver or bile duct drainage system. Hepatitis profile checked on 11/01/2019 shows nonreactive with hepatitis B surface antibody 3.5, and consistent with immunity, hepatitis C is nonreactive Serum protein electrophoresis confirmed restricted band migrating in gamma region, immunofixation confirmed IgM kappa monoclonal band present. And quantitative immunoglobulin showed IgM 1905, IgG 2151, IgA 269 And follow-up CMP shows persistent mildly elevated but stable bilirubin and AST/ALT. denies any specific complaint, no fever or chills, no night sweats, no weight loss, no peripheral lymphadenopathy, no abdominal fullness, no diarrhea or constipation, no new bony pains., No jaundice Medications: Albuterol Sulfate 2 puff(s) (of 108 (90 base) mcg/act) Aerosol Powder, Breath Activated Inhalation q 4 hours PRN, ALPRAZolam 1 Tablet (of 0.5 mg) Oral t.i.d. PRN, Atorvastatin Calcium 1 Tablet (of 40 mg) Oral daily, FLUoxetine HCl 1 Tablet (of 40 mg) Capsule Oral daily, Gabapentin 1 Capsule (of 300 mg) Oral t.i.d., Lisinopril 1 Tablet (of 20 mg) Oral daily, Propranolol HCl 1 Tablet (of 10 mg) Oral b.i.d., Sildenafil Citrate 1 Tablet (of 100 mg) Oral PRN Allergies: No Known Allergies. Review of Systems: Review of Systems is not available for this patient. Vital Signs: Vitals are not available for this patient. Performance Status: 0 - Fully active, able to carry on all predisease activities without restrictions. (ECOG) Physical Examination: ENMT - No thrush, no mouth sores, no jaundice, Respiratory - Denies shortness of breath or wheezing, Cardiovascular - Denies palpitation or tachycardia, Abdomen - Denies abdominal pain, Extremities - Denies edema or rash. Lab/Imaging: Test performed on Dec 21, 2019 09:25 Sodium 135 mmol/L Potassium 4.4 mmol/L Chloride 100 mmol/L CO2 23 mmol/L Anion Gap 16.4 BUN 7 mg/dL Creatinine 0.7 mg/dL Cr Clearance (Est) 129.8700 mL/min eGFR 114.3 mL/min Glucose 92 mg/dL Calcium 10.0 mg/dL Protein, Total 8.7 g/dL Albumin 3.8 g/dL Globulin 4.9 g/dL Bilirubin, Total 1.0 mg/dL ALT (SGPT) 53 U/L AST (SGOT) 52 U/L Alkaline Phosphatase 105 IU/L WBC 5.5 10 3/uL RBC 3.64 10 6/uL HGB 13.2 g/dL HCT 39.7 % MCV 109.1 fL MCH 36.3 pg MCHC 33.2 g/dL RDW 11.6 % Platelet Count 207 10 3/cmm MPV 9.2 fL Neutrophils 2.8 10 3/uL Lymphocytes 1.8 10 3/uL Monocytes 0.8 10 3/uL Eosinophils 0.1 10 3/uL Basophils 0.0 10 3/uL Neutrophil % 50.8 % Lymphocyte % 33.3 % Monocyte % 13.9 % Eosinophil % 1.1 % Basophils % 0.7 % Test performed on November 20, 2019 10:20 LDH (Total) 355 U/L IgG 2151 mg/dL IgA 269 mg/dL IgM 1905 mg/dL Test performed on Aug 07, 2019 08:40 Manual Lymphocytes 28.5 % Manual Monocytes 17.5 % Manual Eosinophils 2.8 % Manual Basophils 0.3 % NRBCs 0.0 /100 WBC Test performed on Jun 19, 2019 10:05 Magnesium 2.2 mg/dL Impression: Infiltrating adenocarcinoma, low-grade, well to moderately differentiated status post ascending colon and terminal ileum, right hemicolectomy done on 01/24/2019 Final pathology report showed limited penetration through muscularis propria into serosal connective tissue, smaller, separate invasive carcinoma focus measuring 1 x 1 cm Clear surgical margin but DCIS at staple line. pT3 2 out of 14 lymph nodes were examined showed microscopic clusters pN1b, MSI/MMR intact CT scan of abdomen pelvis done on 11/16/2018 showed no evidence of metastatic disease. Stage IIIB Mr Potts was offered treatment with FOLFOX. He began his first cycle on 04/04/2019. He has tolerated it well overall with the exception of thrombocytopenia and chemo induced neutropenia. He has responded well to Neulasta for the neutropenia. patient completed 11/12 cycles ofmodified dose FOLFOX on 10/10/2019, chemotherapy was concluded after 11 doses because of persistent abnormal AST/ALT and mildly elevated bilirubin around 1.3. Hepatitis profile was ordered which was nonreactive. His CMP also showed elevated total protein, for which serum protein electrophoresis was done on 11/01/2019 which confirmed restrictive band migrating in the gamma region, immunofixation confirmed IgM kappa monoclonal band. Plan: Discussed with patient regarding his labs white blood count 6 hemoglobin 11.7 hematocrit 36 platelets 182,000 MCV 112, CMP within normal limits except ALT 49 AST 46 compared to ALT 61 AST 60 on November 06, 2019., And gamma globin 5.4, IgA 269, IgG 2151, IgM 1905 Clinically, patient is doing well, no B symptoms, no other signs symptom suggestive of recurrence of colon cancer, his follow-up labs shows ALT, AST continue to improve, bilirubin is normal range now. Mild anemia but stable hemoglobin. Quantitative immunoglobulin shows elevated IgM at 1905, IgG 2151 and IgA 269. We will flush his Port-A-Cath today and then return to clinic in 1 month with CBC CMP and port flush. Signed By: Andrés Barbour M.D. <<Signature on File>>
== END 2019-12-17 23:59 | disposition home or self-care (01) ==
LOC: ONCMED 06:51
PROVIDERS: Family Provider Family Medicine; PCP Family Medicine; Visit Provider Internal Medicine Hematology & Oncology
DX: Z08 Encounter for follow-up examination after completed treatment for malignant neoplasm (principal); Z45.2 Encounter for adjustment and management of vascular access device; Z85.038 Personal history of other malignant neoplasm of large intestine; D64.9 Anemia, unspecified; R76.8 Other specified abnormal immunological findings in serum; Z90.49 Acquired absence of other specified parts of digestive tract; Z95.828 Presence of other vascular implants and grafts; Z92.21 Personal history of antineoplastic chemotherapy
CPT/HCPCS: 80053; 82784; 83615; 85025; G0463

== ENCOUNTER 2020-01-05 06:43 | Outpatient (RCR) | payer OTHER, SELFPAY ==
[2019-12-21 11:38] LABS: Alanine Aminotransferase 53 U/L (0-41); Albumin Level 3.8 g/dL (3.5-5.2); Alkaline Phosphatase 105 IU/L (40-130); Anion Gap 16.4 (5-19); Aspartate Amino Transferase 52 U/L (0-40); Blood Urea Nitrogen 7 mg/dL (8-23); Carbon Dioxide 23 mmol/L (22-29); Chloride 100 mmol/L (98-107); Globulin 4.9 g/dL (1.3-4.6); Glomerular Filtration Rate 114.3 mL/min (90-130); Glucose 92 mg/dL (65-115); Osmolality Calculated 275 mOsm/kg (285-295); Potassium 4.4 mmol/L (3.5-5.1); Sodium 135 mmol/L (136-145); Total Protein 8.7 g/dL (6.6-8.7)
[2019-12-21 11:43] LABS: Basophils % 0.7 %; Eosinophils # 0.1 10^3/uL (0.0-0.8); Eosinophils % 1.1 %; Hematocrit 39.7 % (42.0-52.0); Hemoglobin 13.2 g/dL (11.7-16.6); Lymphocytes # 1.8 10^3/uL (0.8-4.8); Lymphocytes % 33.3 %; Mean Corpuscular HGB Conc 33.2 g/dL (30.0-36.0); Mean Corpuscular Hemoglobin 36.3 pg (28.0-34.0); Mean Corpuscular Volume 109.1 fL (80-94); Mean Platelet Volume 9.2 fL (7.4-10.4); Monocytes # 0.8 10^3/uL (0.2-0.9); Monocytes % 13.9 %; Neutrophils # 2.8 10^3/uL (1.8-7.7); Neutrophils % 50.8 %; Nucleated Red Blood Cells % 0 %; Platelet Count 207 10^3/cmm (130-400); Red Blood Count 3.64 10^6/uL (4.1-5.3); Red Cell Distribution Width 11.6 % (12.1-15.1); White Blood Count 5.5 10^3/uL (4.0-10.0)
--- NOTE | 2019-12-22 10:03 | ONC FU_ITS ---
Dr. Barbour follow up note Patient: Rich Potts Unit #: [id number]: 1955 Dicatated By: Andrés Barbour M.D.Date of Visit:Dec 22, 2019 Onc Med Follow-up/Prog Note History of Present Illness: Mr. Potts is a 64-year-old gentleman who underwent surveillance colonoscopy. It revealed a mass in the hepatic flexure. A biopsy was obtained which showed adenocarcinoma arising in the background of tubular adenoma. There was another friable polyp seen which was completely removed, but did show tubular adenoma with high-grade dysplasia. CT scan of abdomen reported no direct evidence of metastatic disease. Mr Potts underwent ascending colon and terminal ileum, right hemicolectomy on 01/24/2019. The pathology reported low-grade, well to moderately differentiated infiltrating adenocarcinoma with limited penetration through muscularis propria into serosal connective tissue. Tumor arising immediately adjacent to tubulovillous adenoma with severe dysplasia T3 Smaller, separate invasive carcinoma focus measuring 1 x 1 cm. Surgical margins clear but as per discussion with Dr. 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 2 nodes were positive( microscopic clusters/ )14 node examined N1b MSI/MMR intact recommended treatment with 12 cycles of FOLFOX. He began his first cycle on 04/04/19. His dose has been modified to hold the 5 FU bolus. Mr Potts has completed 11 cycles and has had complications due to the chemotherapy of neutropenia/thrombocytopenia. His cycle 4 was held an additional week due to the neutropenia. He was due for chemo and his ANC was 900. He was delayed a week and recovered to 1800. His day 8 ANC then was 1600. His platelet count was 72,000 at that time as well. Neulasta was ordered and it began with cycle Cycle 6. He has had no further neutropenia since that addition. He has had mildly fluctuating AST/ALT.total bilirubin but has been asymptomatic. his adjuvant chemotherapy was concluded after 11 cycles of FOLFOX as patient continued to have mildly fluctuated ALT AST and bilirubin etiology was unclear and abdominal sonogram shows no abnormality in the liver and biliary drainage system. Abdominal sonogram was done on 11/16/2019 showed no abnormality seen in the liver or bile duct drainage system. Hepatitis profile checked on 11/01/2019 shows nonreactive with hepatitis B surface antibody 3.5, and consistent with immunity, hepatitis C is nonreactive Serum protein electrophoresis confirmed restricted band migrating in gamma region, immunofixation confirmed IgM kappa monoclonal band present. And follow-up CMP shows persistent mildly elevated but stable bilirubin and AST/ALT. Came for follow-up, denies any specific complaints, no fever chills, no nausea or vomiting, no night sweats, no recurrent fever, no weight loss, no nausea vomiting or diarrhea or constipation, no jaundice, no abdominal pain, no abdominal fullness, no peripheral lymphadenopathy. Patient said he takes about 6 pack of [employer] Light beer on regular basis otherwise no [id number] herbs or health food. Medications: Albuterol Sulfate 2 puff(s) (of 108 (90 base) mcg/act) Aerosol Powder, Breath Activated Inhalation q 4 hours PRN, ALPRAZolam 1 Tablet (of 0.5 mg) Oral t.i.d. PRN, Atorvastatin Calcium 1 Tablet (of 40 mg) Oral daily, FLUoxetine HCl 1 Tablet (of 40 mg) Capsule Oral daily, Gabapentin 1 Capsule (of 300 mg) Oral t.i.d., Lisinopril 1 Tablet (of 20 mg) Oral daily, Propranolol HCl 1 Tablet (of 10 mg) Oral b.i.d., Sildenafil Citrate 1 Tablet (of 100 mg) Oral PRN Allergies: No Known Allergies. Review of Systems: Constitutional - Appetite has been poor and weight is stable. No fever, chills, hot flashes, or night sweats. Energy level is fair, ENMT - No sinus congestion/drainage. No mouth sores. No sore throat or difficulty swallowing, Hematologic/Lymphatic - No abnormal bruising or bleeding, Respiratory - No shortness of breath. No cough. No pleuritic pain or hemoptysis, Cardiovascular - No angina pain. No palpitations, Gastrointestinal - Positive for nausea, no vomiting. No heartburn or acid reflux. Positive for diarrhea, no constipation. No blood in the stool or black stools, Genitourinary (M) - No dysuria or hematuria. No urinary frequency. No urgency or incontinence, Musculoskeletal - No joint or bone pain, Neurologic - No headache or dizziness. No numbness/paresthesias or other focal neurologic symptoms, Psychiatric - Positive for anxiety and insomnia. Vital Signs: Performed on Dec 22, 2019 09:32 Height - 76.50 in Weight - 177.8 lbs (HIGH) BSA - 2.12 sq.m BMI - 21.36 Temperature - 97.8 F (LOW) Pulse - 67 /min Respiration - 18 /min BP - 114/70 mm(hg) O2 Sat - 98 % Pain - 0 Performance Status: 0 - Fully active, able to carry on all predisease activities without restrictions. (ECOG) Physical Examination: ENMT - No mouth sores, no thrush Or jaundice, Respiratory - Lungs are clear, Cardiovascular - Regular rate and rhythm of heart, Abdomen - Soft, bowel sounds present, nontender,, Extremities - No visible edema, no rash or peripheral lymphadenopathy. Lab/Imaging: Test performed on November 20, 2019 10:20 LDH (Total) 355 U/L Sodium 138 mmol/L Potassium 4.0 mmol/L Chloride 103 mmol/L CO2 23 mmol/L Anion Gap 16.0 BUN 9 mg/dL Creatinine 0.8 mg/dL Cr Clearance (Est) 113.6400 mL/min eGFR 98.0 mL/min Glucose 90 mg/dL Calcium 9.8 mg/dL Protein, Total 8.9 g/dL Albumin 3.5 g/dL Globulin 5.4 g/dL Bilirubin, Total 1.2 mg/dL ALT (SGPT) 49 U/L AST (SGOT) 46 U/L Alkaline Phosphatase 129 IU/L WBC 6.0 10 3/uL RBC 3.19 10 6/uL HGB 11.7 g/dL HCT 36.0 % MCV 112.9 fL MCH 36.7 pg MCHC 32.5 g/dL RDW 12.1 % Platelet Count 182 10 3/cmm MPV 9.4 fL Neutrophils 2.5 10 3/uL Lymphocytes 2.1 10 3/uL Monocytes 1.0 10 3/uL Eosinophils 0.3 10 3/uL Basophils 0.1 10 3/uL Neutrophil % 42.2 % Lymphocyte % 35.6 % Monocyte % 16.2 % Eosinophil % 4.8 % Basophils % 1.0 % IgG 2151 mg/dL IgA 269 mg/dL IgM 1905 mg/dL Test performed on Aug 07, 2019 08:40 Manual Lymphocytes 28.5 % Manual Monocytes 17.5 % Manual Eosinophils 2.8 % Manual Basophils 0.3 % NRBCs 0.0 /100 WBC Impression: Infiltrating adenocarcinoma, low-grade, well to moderately differentiated status post ascending colon and terminal ileum, right hemicolectomy done on 01/24/2019 Final pathology report showed limited penetration through muscularis propria into serosal connective tissue, smaller, separate invasive carcinoma focus measuring 1 x 1 cm Clear surgical margin but DCIS at staple line. pT3 2 out of 14 lymph nodes were examined showed microscopic clusters pN1b, MSI/MMR intact CT scan of abdomen pelvis done on 11/16/2018 showed no evidence of metastatic disease. Stage IIIB Mr Potts was offered treatment with FOLFOX. He began his first cycle on 04/04/2019. He has tolerated it well overall with the exception of thrombocytopenia and chemo induced neutropenia. He has responded well to Neulasta for the neutropenia. patient completed 11/12 cycles ofmodified dose FOLFOX on 10/10/2019, chemotherapy was concluded after 11 doses because of persistent abnormal AST/ALT and mildly elevated bilirubin around 1.3. Hepatitis profile was ordered which was nonreactive. His CMP also showed elevated total protein, for which serum protein electrophoresis was done on 11/01/2019 which confirmed restrictive band migrating in the gamma region, immunofixation confirmed IgM kappa monoclonal band. Plan: Discussed with patient regarding his labs white blood count 5.5 hemoglobin 13.2 crit 39.7 platelets 207 CMP within normal limits except mildly elevated transaminases but bilirubin is normal range and total protein is 8.7 Clinically, patient is doing well with no new signs symptoms just of disease progression but his follow-up labs showed normalization of mild anemia but persistently elevated transaminases with normalization of hyperbilirubinemia and elevated total protein due to IgM MGUS. At this point will consider CT scan of chest abdomen pelvis to rule out central lymphadenopathy or lymphoproliferative disorder causing IgM MGUS or abnormal LFTs. Patient will return to clinic after the CT scan of chest abdomen pelvis for further discussion. Signed By: Andrés Barbour M.D. <<Signature on File>>
--- NOTE | 2020-01-03 11:08 | CT_ITS ---
WS: [id number] Examination: CT of the chest, abdomen, pelvis with contrast enhancement. HISTORY: Abdominal pain Contrast: Omnipaque 300 95 mL. FINDINGS: The chest was scanned at 3 mm increments. In the right lung base there is a pleural-based mass measures 2.189 cm this mass is adherent to the m edial pleura. No destructive changes surrounding this area are noted. The mass is seen extending off the posterior wall of the right lower lung. The aorta was normal. The heart chambers show no abnormalities. The pulmonary vasculature fill readily no filling defects are seen. The lung dominguez are hyper aerated suggesting an lobular emphysema. The peripheral lungs show no definite pneumonia, mass effect, The liver was normal. The adrenal glands did not show mass effect. The thoracic upper lumbar spine show degenerate changes no destructive findings CT/CT chest abd pel w con* Impression: A neoplasm is seen along the posterior aspects of the medial portion of the rig ht lower lung Chronic obstructive pulmonary disease. CT of the chest shows normal appearance of the liver. No filling defects are se en. The right left adrenal gland are normal. The gallbladder was normal no stones are seen. The pancreas head, body, tail are normal. The spleen was normal as well as the stomach. The aorta inferior vena cava are normal. Both kidneys are well identified show no mass effects cyst hydronephrosis there is evidence of thickening of Gerota's fascia on the right side and there appea rs to be resection of the right colon present. Appendix was not seen in the sma ll bowel patterns are normal. The transverse colon was normal. The descending colon shows no deformities. The urinary bladder was normal. There is marked fecal stasis in the rectosigmoid colon area. The pelvis bony structures were normal. The lumbar spine showed no destructive changes or fractures. Impression: Previous resection of the right colon Otherwise normal CT abdomen pelvis. There was evidence of thickening of Gerota's fascia on the right side but no ot her pathology is noted.
[2020-01-03] MEDS: iohexol 300 mg/mL 100 mL Btl IV (12:02)
[2020-01-04 12:54] LABS: Alanine Aminotransferase 49 U/L (0-41); Albumin Level 3.9 g/dL (3.5-5.2); Alkaline Phosphatase 99 IU/L (40-130); Anion Gap 16.9 (5-19); Aspartate Amino Transferase 48 U/L (0-40); Basophils % 0.8 %; Blood Urea Nitrogen 9 mg/dL (8-23); Calcium 9.5 mg/dL (8.5-10.5); Carbon Dioxide 25 mmol/L (22-29); Chloride 100 mmol/L (98-107); Eosinophils # 0.1 10^3/uL (0.0-0.8); Eosinophils % 2.1 %; Globulin 4.7 g/dL (1.3-4.6); Glucose 81 mg/dL (65-115); Hemoglobin 13.9 g/dL (11.7-16.6); Lymphocytes # 2.1 10^3/uL (0.8-4.8); Lymphocytes % 44.2 %; Mean Corpuscular HGB Conc 33.1 g/dL (30.0-36.0); Mean Corpuscular Hemoglobin 35.9 pg (28.0-34.0); Mean Corpuscular Volume 108.5 fL (80-94); Mean Platelet Volume 9.5 fL (7.4-10.4); Monocytes # 0.7 10^3/uL (0.2-0.9); Monocytes % 14.2 %; Neutrophils # 1.8 10^3/uL (1.8-7.7); Neutrophils % 38.7 %; Nucleated Red Blood Cells % 0 %; Osmolality Calculated 281 mOsm/kg (285-295); Platelet Count 197 10^3/cmm (130-400); Potassium 3.9 mmol/L (3.5-5.1); Red Blood Count 3.87 10^6/uL (4.1-5.3); Red Cell Distribution Width 11.6 % (12.1-15.1); Sodium 138 mmol/L (136-145); Total Bilirubin 1.3 mg/dL (0.15-1.2); Total Protein 8.6 g/dL (6.6-8.7); White Blood Count 4.7 10^3/uL (4.0-10.0)
--- NOTE | 2020-01-05 11:49 | ONC FU_ITS ---
Dr. Barbour follow up note Patient: Rich Potts Unit #: [id number]: 1955 Dicatated By: Andrés Barbour M.D.Date of Visit:Jan 05, 2020 Onc Med Follow-up/Prog Note History of Present Illness: Mr. Potts is a 64-year-old gentleman who underwent surveillance colonoscopy. It revealed a mass in the hepatic flexure. A biopsy was obtained which showed adenocarcinoma arising in the background of tubular adenoma. There was another friable polyp seen which was completely removed, but did show tubular adenoma with high-grade dysplasia. CT scan of abdomen reported no direct evidence of metastatic disease. Mr Potts underwent ascending colon and terminal ileum, right hemicolectomy on 01/24/2019. The pathology reported low-grade, well to moderately differentiated infiltrating adenocarcinoma with limited penetration through muscularis propria into serosal connective tissue. Tumor arising immediately adjacent to tubulovillous adenoma with severe dysplasia T3 Smaller, separate invasive carcinoma focus measuring 1 x 1 cm. Surgical margins clear but as per discussion with Dr. 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 2 nodes were positive( microscopic clusters/ )14 node examined N1b MSI/MMR intact recommended treatment with 12 cycles of FOLFOX. He began his first cycle on 04/04/19. His dose has been modified to hold the 5 FU bolus. Mr Potts has completed 11 cycles and has had complications due to the chemotherapy of neutropenia/thrombocytopenia. His cycle 4 was held an additional week due to the neutropenia. He was due for chemo and his ANC was 900. He was delayed a week and recovered to 1800. His day 8 ANC then was 1600. His platelet count was 72,000 at that time as well. Neulasta was ordered and it began with cycle Cycle 6. He has had no further neutropenia since that addition. He has had mildly fluctuating AST/ALT.total bilirubin but has been asymptomatic. his adjuvant chemotherapy was concluded after 11 cycles of FOLFOX as patient continued to have mildly fluctuated ALT AST and bilirubin etiology was unclear and abdominal sonogram shows no abnormality in the liver and biliary drainage system. Abdominal sonogram was done on 11/16/2019 showed no abnormality seen in the liver or bile duct drainage system. Hepatitis profile checked on 11/01/2019 shows nonreactive with hepatitis B surface antibody 3.5, and consistent with immunity, hepatitis C is nonreactive Serum protein electrophoresis confirmed restricted band migrating in gamma region, immunofixation confirmed IgM kappa monoclonal band present. And follow-up CMP shows persistent mildly elevated but stable bilirubin and AST/ALT. CT scan of chest abdomen pelvis done on January 04, 2020 showed in the right lung base there is a pleural-based mass smiling 2.1 cm and this mass is adherent to medial pleura. No destructive changes surrounding this area. Mass is seen extending off the posterior wall of right lower lobe lung. CT scan of the abdomen shows normal appearance of the liver, no filling defects seen adrenal gland normal gallbladder normal no stones spleen is normal. And CT scan of abdomen pelvis done on November 2018 at [facility] showed there was no acute process referable to visualized lower thorax and liver gallbladder biliary tree are normal. The spleen contain an occasional calcified granuloma otherwise unremarkable. Came for follow-up, denies any specific complaints, no fever or chills, no nausea or vomiting, no diarrhea or constipation, patient drinks 6-7 beer in a day. No jaundice, no abdominal pain, no hemoptysis or hematemesis, appetite is good. Medications: Albuterol Sulfate 2 puff(s) (of 108 (90 base) mcg/act) Aerosol Powder, Breath Activated Inhalation q 4 hours PRN, ALPRAZolam 1 Tablet (of 0.5 mg) Oral t.i.d. PRN, Atorvastatin Calcium 1 Tablet (of 40 mg) Oral daily, FLUoxetine HCl 1 Tablet (of 40 mg) Capsule Oral daily, Gabapentin 1 Capsule (of 300 mg) Oral t.i.d., Lisinopril 1 Tablet (of 20 mg) Oral daily, Propranolol HCl 1 Tablet (of 10 mg) Oral b.i.d., Sildenafil Citrate 1 Tablet (of 100 mg) Oral PRN Allergies: No Known Allergies. Review of Systems: Constitutional - Appetite has been poor and weight is stable. No fever, chills, hot flashes, or night sweats. Energy level is fair, ENMT - No sinus congestion/drainage. No mouth sores. No sore throat or difficulty swallowing, Hematologic/Lymphatic - No abnormal bruising or bleeding, Respiratory - No shortness of breath. No cough. No pleuritic pain or hemoptysis, Cardiovascular - No angina pain. No palpitations, Gastrointestinal - Positive for nausea, no vomiting. No heartburn or acid reflux. Positive for diarrhea, no constipation. No blood in the stool or black stools, Genitourinary (M) - No dysuria or hematuria. No urinary frequency. No urgency or incontinence, Musculoskeletal - No joint or bone pain, Neurologic - No headache or dizziness. Positive for tremors, Psychiatric - Positive for anxiety and insomnia. Vital Signs: Performed on Jan 05, 2020 09:08 Height - 76.50 in Weight - 178.0 lbs (HIGH) BSA - 2.12 sq.m BMI - 21.38 Temperature - 97.9 F (LOW) Pulse - 76 /min Respiration - 19 /min BP - 151/78 mm(hg) (HIGH) O2 Sat - 94 % (LOW) Pain - 0 Performance Status: 0 - Fully active, able to carry on all predisease activities without restrictions. (ECOG) Physical Examination: ENMT - No mouth sores, no thrush, no jaundice, Respiratory - Lungs are clear, Cardiovascular - Regular rate and rhythm of heart, Abdomen - Soft, bowel sounds present, Extremities - No visible edema. Lab/Imaging: Test performed on Jan 04, 2020 09:10 Sodium 138 mmol/L Potassium 3.9 mmol/L Chloride 100 mmol/L CO2 25 mmol/L Anion Gap 16.9 BUN 9 mg/dL Creatinine 0.8 mg/dL Cr Clearance (Est) 113.6400 mL/min eGFR 98.0 mL/min Glucose 81 mg/dL Calcium 9.5 mg/dL Protein, Total 8.6 g/dL Albumin 3.9 g/dL Globulin 4.7 g/dL Bilirubin, Total 1.3 mg/dL ALT (SGPT) 49 U/L AST (SGOT) 48 U/L Alkaline Phosphatase 99 IU/L WBC 4.7 10 3/uL RBC 3.87 10 6/uL HGB 13.9 g/dL HCT 42.0 % MCV 108.5 fL MCH 35.9 pg MCHC 33.1 g/dL RDW 11.6 % Platelet Count 197 10 3/cmm MPV 9.5 fL Neutrophils 1.8 10 3/uL Lymphocytes 2.1 10 3/uL Monocytes 0.7 10 3/uL Eosinophils 0.1 10 3/uL Basophils 0.0 10 3/uL Neutrophil % 38.7 % Lymphocyte % 44.2 % Monocyte % 14.2 % Eosinophil % 2.1 % Basophils % 0.8 % NRBC % 0 % Test performed on November 20, 2019 10:20 LDH (Total) 355 U/L IgG 2151 mg/dL IgA 269 mg/dL IgM 1905 mg/dL Test performed on Aug 07, 2019 08:40 Manual Lymphocytes 28.5 % Manual Monocytes 17.5 % Manual Eosinophils 2.8 % Manual Basophils 0.3 % NRBCs 0.0 /100 WBC Impression: Infiltrating adenocarcinoma, low-grade, well to moderately differentiated status post ascending colon and terminal ileum, right hemicolectomy done on 01/24/2019 Final pathology report showed limited penetration through muscularis propria into serosal connective tissue, smaller, separate invasive carcinoma focus measuring 1 x 1 cm Clear surgical margin but DCIS at staple line. pT3 2 out of 14 lymph nodes were examined showed microscopic clusters pN1b, MSI/MMR intact CT scan of abdomen pelvis done on 11/16/2018 showed no evidence of metastatic disease. Stage IIIB Mr Potts was offered treatment with FOLFOX. He began his first cycle on 04/04/2019. He has tolerated it well overall with the exception of thrombocytopenia and chemo induced neutropenia. He has responded well to Neulasta for the neutropenia. patient completed 11/12 cycles ofmodified dose FOLFOX on 10/10/2019, chemotherapy was concluded after 11 doses because of persistent abnormal AST/ALT and mildly elevated bilirubin around 1.3. Hepatitis profile was ordered which was nonreactive. His CMP also showed elevated total protein, for which serum protein electrophoresis was done on 11/01/2019 which confirmed restrictive band migrating in the gamma region, immunofixation confirmed IgM kappa monoclonal band. Plan: Discussed with patient regarding his labs for blood count 4.7 hemoglobin 13.9 crit 42 platelets 197,000 CMP within normal limits except bilirubin 1.3 compared to 1 on December 21, 2019 1.3 on November 06, 2019 ALT 49 AST [address] scan of chest abdomen pelvis showed right lower lobe pleural-based lung nodule, which is new compared to CT scan of abdomen pelvis done on November 16, 2018, no organomegaly and no mention of lymphadenopathy on the CT scan of chest abdomen pelvis Clinically, patient is doing well with no new signs symptoms, no B symptoms. His follow-up CT scan of chest abdomen pelvis showed no organomegaly no mention of lymphadenopathy but new right lower lobe pleural-based lung nodule. At this point we will consider CT PET scan as his labs also showed abnormal LFTs and mildly elevated bilirubin although CT scan of the abdomen showed liver normal-appearing. As far as, MGUS/macroglobulinemia is concerned, his CT scan of chest abdomen pelvis showed no abnormality, will consider bone marrow evaluation, patient wants to get procedure done after 19 January. So we will schedule him for bone marrow after 19 January in the meantime will obtain CT PET scan to assess new right lower lobe lung nodule. Patient was advised to quit alcohol use and then return to clinic 1 week after bone marrow evaluation with CBC CMP. And CEA Signed By: Andrés Barbour M.D. <<Signature on File>>
== END 2020-01-16 23:59 | disposition home or self-care (01) ==
LOC: ONCMED 06:43
PROVIDERS: PCP Family Medicine; Visit Provider Internal Medicine Hematology & Oncology
DX: C18.3 Malignant neoplasm of hepatic flexure (principal); D69.59 Other secondary thrombocytopenia; D70.1 Agranulocytosis secondary to cancer chemotherapy; T45.1X5A Adverse effect of antineoplastic and immunosuppressive drugs, initial encounter; F41.9 Anxiety disorder, unspecified; J44.9 Chronic obstructive pulmonary disease, unspecified; E78.5 Hyperlipidemia, unspecified; I10 Essential (primary) hypertension; F10.20 Alcohol dependence, uncomplicated; F43.20 Adjustment disorder, unspecified; Z92.21 Personal history of antineoplastic chemotherapy; Z79.899 Other long term (current) drug therapy
CPT/HCPCS: 36415; 71260; 74177; 80053; 85025; 99214; Q9967

== ENCOUNTER 2020-01-25 10:10 | Day surgery (SDC) | payer OTHER, SELFPAY ==
[2020-01-24 17:02] VITALS: BMI 24.4
[2020-01-25 10:32] VITALS: BP 101/76; PULSE 76; RESP 18; TEMP 36.8; O2SAT 97
[2020-01-25] MEDS: sodium chloride 0.9% 1,000 ML 30 ML IV (10:35)
[2020-01-25 11:06] LABS: Hematocrit 43.5 % (42.0-52.0); Hemoglobin 14.8 g/dL (11.7-16.6); Mean Corpuscular Hemoglobin 36.8 pg (28.0-34.0); Mean Corpuscular Volume 108.2 fL (80-94); Mean Platelet Volume 9.2 fL (7.4-10.4); Platelet Count 186 10^3/cmm (130-400); Red Blood Count 4.02 10^6/uL (4.1-5.3); Red Cell Distribution Width 11.9 % (12.1-15.1); White Blood Count 6.9 10^3/uL (4.0-10.0)
--- NOTE | 2020-01-25 11:26 | ANES.PREANE2 ---
Pre-Anesthetic Assessment Pre-Anesthetic Assessment: Height/Weight: Height 1.83 m Weight 81.647 kg Temp Pulse Resp BP Pulse Ox 98.2 F 76 18 101/76 97 01/25/20 10:32 01/25/20 10:32 01/25/20 10:32 01/25/20 10:32 01/25/20 10:32 Proposed Procedure: Operation Date: 01/25/20 11:30 Proposed Procedures p Bone Marrow Biospy With Aspiration(Not Applicable) - Andrés Barbour MD Was Beta Sissy taken within 24 hours: Yes Last intake: Intake Last Liquid Date 01/24/20 Last Liquid Time 20:00 Last Solid Date 01/24/20 Last Solid Time 20:00 Last Intake: 00:00 Social: Social History: Alcohol (daily 6 beers) and Tobacco Packs per day: 1 ppd Pack years: 50 Exam: Pre-Anes Outpt Exam: alert, oriented x 3 and clear to auscultation bilaterally Airway: Dentition: Full History/ROS: No significant history except as noted Pulmonary: Pulmonary: COPD and BROWNE CV/HEM: CV/HEM: HTN : : None reported Hepatic: Hepatic: None reported GI: GI: None reported Metabolic: Metabolic: None reported Musc/skel: Musc/skel: None reported Neuropsych: Neuropsych: Anxiety and Depression Anesthetic Plan: ASA status: 3 Anesthesia: Anesthesia Evaluation and MAC PFSH Anesthesia PFSH: Medical History Alcohol dependence Anxiety disorder COPD (chronic obstructive pulmonary disease) History of colon polyps Hyperlipidemia Hypertension Surgical History (Updated 09/30/19 @ 07:59 by Tyler Liang MD) History of colonoscopy (01/2019) History of right hemicolectomy (~01/2019) Malignant neoplasm of hepatic flexure Family History Family/Other Cancer Mother Stroke Denies family history of Anesthesia complication Bleeding disorder Social History Smoking and tobacco status: current every day smoker cigarettes Second hand smoke exposure: Yes Alcohol intake: current Alcohol intake frequency: 3 or more drinks per day Alcohol type: beer and hard liquor Data Anesthesia CBC & Chem 7: 01/25/20 10:40 Other Labs: Laboratory Results - last 48 hr 01/25/20 10:40 WBC 6.9 RBC 4.02 L Hgb 14.8 Hct 43.5 MCV 108.2 H MCH 36.8 H MCHC 34.0 RDW 11.9 L Plt Count 186 MPV 9.2 Cardiac Studies: No Data to Display
[2020-01-25 11:33] LABS: Absolute Segmented Neutrophil 3.1 10/cmm (1.6-7.1); Lymphocytes 41 %; Platelet Estimate Normal (Normal); Segmented Neutrophils 45 %; Total Cells Counted 100 (0-100)
--- NOTE | 2020-01-25 11:54 | PM.BMB ---
Bone Marrow Biopsy Bone Marrow Biopsy: I was consulted by [] office regarding bone marrow biopsy on [Rich Potts]. Briefly, the patient is a [65] year old Male[] with [MGUS]. In the Outpatient Services Department, with nursing staff and laboratory technologists in attendance, the procedure was discussed with the patient. Appropriate consent form had been signed. Appropriate alternatives, benefits and risks of procedure were discussed with the patient and he was pre-operatively assessed with a history and physical by myself and cleared for the biopsy procedure. The patient did request IV sedation and that was provided by the Anesthesia Department. Under aseptic condition right posterior iliac area was cleaned and prepped local anesthesia was given, about 15 mL of bone marrow aspirate and core biopsy was obtained. Patient tolerated the procedure well, hemostasis was obtained, postprocedure nursing instructions were given. Specimen was sent for routine histopathology, Flow cytometry/ cytogeneticsAnd myeloma panel. Thank you for allowing me to participate in this patient's care and diagnosis. Coding Level of Care Code Acute [employer] Worker for Manuel Kaiser
--- NOTE | 2020-01-25 12:00 | ANE.PACU2 ---
Inpatient post-anesthesia follow up: Airway intact: Yes Vital signs: Temperature 98.2 F Pulse Rate 76 Respiratory Rate 18 Blood Pressure 101/76 Pulse Oximetry 97 Oxygen Delivery Me thod Oxygen Flow Rate Fraction of Inspir ed Oxygen Hydration adequate: Yes Nausea and vomiting: No Pain level: 1 Mental status: Baseline
[2020-01-25 12:07] VITALS: BP 96/61; PULSE 65; RESP 16; TEMP 36.7; O2SAT 100
[2020-01-25 12:24] VITALS: BP 119/85; PULSE 68; RESP 18; TEMP 36.7; O2SAT 98
[2020-02-15 13:12] LABS: Miscellaneous Test See Scanned Lab Rpt
== END 2020-01-25 12:30 | disposition home or self-care (01) ==
LOC: GILAB 10:14
PROVIDERS: PCP Family Medicine; Visit Provider Internal Medicine Hematology & Oncology
PROC: 07DT3ZX Extraction of Bone Marrow, Percutaneous Approach, Diagnostic (ICD-10-PCS; CPT 38222; principal; 2020-01-25 11:30)
DX: D47.2 Monoclonal gammopathy (principal)
CPT/HCPCS: 12345; 36415; 38222; 85007; 85027; 88184; 88188; 88230; 88262; 88305; 88374; J2704; J7030

== ENCOUNTER 2020-02-06 13:17 | Outpatient (RCR) | payer OTHER, SELFPAY ==
[2020-02-01 13:55] LABS: Alanine Aminotransferase 43 U/L (0-41); Albumin Level 3.9 g/dL (3.5-5.2); Alkaline Phosphatase 95 IU/L (40-130); Anion Gap 16.5 (5-19); Aspartate Amino Transferase 42 U/L (0-40); Blood Urea Nitrogen 13 mg/dL (8-23); Calcium 9.3 mg/dL (8.5-10.5); Carbon Dioxide 23 mmol/L (22-29); Chloride 104 mmol/L (98-107); Globulin 3.8 g/dL (1.3-4.6); Glomerular Filtration Rate 85.2 mL/min (90-130); Glucose 134 mg/dL (65-115); Osmolality Calculated 288 mOsm/kg (285-295); Potassium 3.5 mmol/L (3.5-5.1); Sodium 140 mmol/L (136-145); Total Protein 7.7 g/dL (6.6-8.7)
[2020-02-01 15:16] LABS: Basophils # 0.1 10^3/uL (0.0-0.1); Basophils % 0.9 %; Eosinophils # 0.1 10^3/uL (0.0-0.8); Hemoglobin 13.3 g/dL (11.7-16.6); Mean Corpuscular HGB Conc 32.4 g/dL (30.0-36.0); Mean Corpuscular Hemoglobin 34.8 pg (28.0-34.0); Mean Corpuscular Volume 107.3 fL (80-94); Mean Platelet Volume 9.4 fL (7.4-10.4); Monocytes # 0.8 10^3/uL (0.2-0.9); Monocytes % 13.6 %; Neutrophils % 49.3 %; Nucleated Red Blood Cells % 0 %; Platelet Count 213 10^3/cmm (130-400); Red Blood Count 3.82 10^6/uL (4.1-5.3); Red Cell Distribution Width 11.9 % (12.1-15.1); White Blood Count 5.9 10^3/uL (4.0-10.0)
--- NOTE | 2020-02-02 11:16 | ONC FU_ITS ---
Dr. Barbour follow up note Patient: Rich Potts Unit #: [id number]: 1955 Dicatated By: Andrés Barbour M.D.Date of Visit:Feb 02, 2020 Onc Med Follow-up/Prog Note History of Present Illness: Mr. Potts is a 65-year-old gentleman who underwent surveillance colonoscopy. It revealed a mass in the hepatic flexure. A biopsy was obtained which showed adenocarcinoma arising in the background of tubular adenoma. There was another friable polyp seen which was completely removed, but did show tubular adenoma with high-grade dysplasia. CT scan of abdomen reported no direct evidence of metastatic disease. Mr Potts underwent ascending colon and terminal ileum, right hemicolectomy on 01/24/2019. The pathology reported low-grade, well to moderately differentiated infiltrating adenocarcinoma with limited penetration through muscularis propria into serosal connective tissue. Tumor arising immediately adjacent to tubulovillous adenoma with severe dysplasia T3 Smaller, separate invasive carcinoma focus measuring 1 x 1 cm. Surgical margins clear but as per discussion with Dr. 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 2 nodes were positive( microscopic clusters/ )14 node examined N1b MSI/MMR intact recommended treatment with 12 cycles of FOLFOX. He began his first cycle on 04/04/19. His dose has been modified to hold the 5 FU bolus. Mr Potts has completed 11 cycles and has had complications due to the chemotherapy of neutropenia/thrombocytopenia. His cycle 4 was held an additional week due to the neutropenia. He was due for chemo and his ANC was 900. He was delayed a week and recovered to 1800. His day 8 ANC then was 1600. His platelet count was 72,000 at that time as well. Neulasta was ordered and it began with cycle Cycle 6. He has had no further neutropenia since that addition. He has had mildly fluctuating AST/ALT.total bilirubin but has been asymptomatic. his adjuvant chemotherapy was concluded after 11 cycles of FOLFOX as patient continued to have mildly fluctuated ALT AST and bilirubin etiology was unclear and abdominal sonogram shows no abnormality in the liver and biliary drainage system. Abdominal sonogram was done on 11/16/2019 showed no abnormality seen in the liver or bile duct drainage system. Hepatitis profile checked on 11/01/2019 shows nonreactive with hepatitis B surface antibody 3.5, and consistent with immunity, hepatitis C is nonreactive Serum protein electrophoresis confirmed restricted band migrating in gamma region, immunofixation confirmed IgM kappa monoclonal band present. And follow-up CMP shows persistent mildly elevated but stable bilirubin and AST/ALT. CT scan of chest abdomen pelvis done on January 04, 2020 showed in the right lung base there is a pleural-based mass smiling 2.1 cm and this mass is adherent to medial pleura. No destructive changes surrounding this area. Mass is seen extending off the posterior wall of right lower lobe lung. CT scan of the abdomen shows normal appearance of the liver, no filling defects seen adrenal gland normal gallbladder normal no stones spleen is normal. And CT scan of abdomen pelvis done on November 2018 at [facility] showed there was no acute process referable to visualized lower thorax and liver gallbladder biliary tree are normal. The spleen contain an occasional calcified granuloma otherwise unremarkable. 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 Background decrease trilineage hematopoiesis detected. Adequate iron. Bone marrow flow cytometry confirmed occasional B-cell noted with a slight predominance of kappa light chain expression no overtly aberrant myeloid or lymphoid population detected CT PET scan done on January 27, 2020 showed there is a 2.3 x 1.5 cm with SUV of 8.8 right lower lobe nodule abutting pleura consistent with metastatic disease a roughly 1.8 cm subcarinal node has SUV of 5. A groundglass opacity in the lateral left lower lobe is FDG negative. A lytic lesion at C4 with SUV of 8.3 consistent with osseous metastatic disease Came for follow-up, denies any specific complaints, no fever chills, no nausea or vomiting, no diarrhea constipation, no night sweats, no recurrent fever, no weight loss, no hemoptysis or hematemesis, no new bony pains Medications: Albuterol Sulfate 2 puff(s) (of 108 (90 base) mcg/act) Aerosol Powder, Breath Activated Inhalation q 4 hours PRN, ALPRAZolam 1 Tablet (of 0.5 mg) Oral t.i.d. PRN, Atorvastatin Calcium 1 Tablet (of 40 mg) Oral daily, FLUoxetine HCl 1 Tablet (of 40 mg) Capsule Oral daily, Gabapentin 1 Capsule (of 300 mg) Oral t.i.d., Lisinopril 1 Tablet (of 20 mg) Oral daily, Propranolol HCl 1 Tablet (of 10 mg) Oral b.i.d., Sildenafil Citrate 1 Tablet (of 100 mg) Oral PRN Allergies: No Known Allergies. Review of Systems: Constitutional - Appetite has been poor and weight is stable. No fever, chills, hot flashes, or night sweats. Energy level is fair, ENMT - No sinus congestion/drainage. No mouth sores. No sore throat or difficulty swallowing, Hematologic/Lymphatic - No abnormal bruising or bleeding, Respiratory - No shortness of breath. No cough. No pleuritic pain or hemoptysis, Cardiovascular - No angina pain. No palpitations, Gastrointestinal - Positive for nausea, no vomiting. No heartburn or acid reflux. Positive for diarrhea, no constipation. No blood in the stool or black stools, Genitourinary (M) - No dysuria or hematuria. No urinary frequency. No urgency or incontinence, Musculoskeletal - No joint or bone pain, Neurologic - No headache or dizziness. Positive for tremors, Psychiatric - Positive for anxiety and insomnia. Vital Signs: Performed on Feb 02, 2020 09:25 Height - 76.50 in Weight - 178.4 lbs (HIGH) BSA - 2.12 sq.m BMI - 21.43 Temperature - 97.9 F (LOW) Pulse - 70 /min Respiration - 18 /min BP - 129/64 mm(hg) O2 Sat - 99 % Pain - 0 Performance Status: 0 - Fully active, able to carry on all predisease activities without restrictions. (ECOG) Physical Examination: ENMT - No mouth sores, no thrush no jaundice, Respiratory - Lungs are clear, Cardiovascular - Regular rate and rhythm of heart, Abdomen - Soft, bowel sounds, Extremities - No visible edema. Lab/Imaging: Test performed on Jan 04, 2020 09:10 Sodium 138 mmol/L Potassium 3.9 mmol/L Chloride 100 mmol/L CO2 25 mmol/L Anion Gap 16.9 BUN 9 mg/dL Creatinine 0.8 mg/dL Cr Clearance (Est) 113.6400 mL/min eGFR 98.0 mL/min Glucose 81 mg/dL Calcium 9.5 mg/dL Protein, Total 8.6 g/dL Albumin 3.9 g/dL Globulin 4.7 g/dL Bilirubin, Total 1.3 mg/dL ALT (SGPT) 49 U/L AST (SGOT) 48 U/L Alkaline Phosphatase 99 IU/L WBC 4.7 10 3/uL RBC 3.87 10 6/uL HGB 13.9 g/dL HCT 42.0 % MCV 108.5 fL MCH 35.9 pg MCHC 33.1 g/dL RDW 11.6 % Platelet Count 197 10 3/cmm MPV 9.5 fL Neutrophils 1.8 10 3/uL Lymphocytes 2.1 10 3/uL Monocytes 0.7 10 3/uL Eosinophils 0.1 10 3/uL Basophils 0.0 10 3/uL Neutrophil % 38.7 % Lymphocyte % 44.2 % Monocyte % 14.2 % Eosinophil % 2.1 % Basophils % 0.8 % NRBC % 0 % Test performed on November 20, 2019 10:20 LDH (Total) 355 U/L IgG 2151 mg/dL IgA 269 mg/dL IgM 1905 mg/dL Test performed on Aug 07, 2019 08:40 Manual Lymphocytes 28.5 % Manual Monocytes 17.5 % Manual Eosinophils 2.8 % Manual Basophils 0.3 % NRBCs 0.0 /100 WBC Impression: Infiltrating adenocarcinoma, low-grade, well to moderately differentiated status post ascending colon and terminal ileum, right hemicolectomy done on 01/24/2019 Final pathology report showed limited penetration through muscularis propria into serosal connective tissue, smaller, separate invasive carcinoma focus measuring 1 x 1 cm Clear surgical margin but DCIS at staple line. pT3 2 out of 14 lymph nodes were examined showed microscopic clusters pN1b, MSI/MMR intact CT scan of abdomen pelvis done on 11/16/2018 showed no evidence of metastatic disease. Stage IIIB Mr Potts was offered treatment with FOLFOX. He began his first cycle on 04/04/2019. He has tolerated it well overall with the exception of thrombocytopenia and chemo induced neutropenia. He has responded well to Neulasta for the neutropenia. patient completed 11/12 cycles ofmodified dose FOLFOX on 10/10/2019, chemotherapy was concluded after 11 doses because of persistent abnormal AST/ALT and mildly elevated bilirubin around 1.3. Hepatitis profile was ordered which was nonreactive. His CMP also showed elevated total protein, for which serum protein electrophoresis was done on 11/01/2019 which confirmed restrictive band migrating in the gamma region, immunofixation confirmed IgM kappa monoclonal band. Plan: Discussed with patient regarding labs white blood count 5.9 hemoglobin 13.3 hematocrit 41 platelets 213,000 CMP within normal limits except ALT [address] PET scan finding which showed increased uptake in right lower lobe nodule abutting the pleura and metastatic subcarinal lymph node and unifocal lytic lesion at C4. 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 Clinically, no new signs symptom, tolerated bone marrow procedure well. As far as bone marrow involvement with lymphoproliferative disorder, will consider, as recommended by pathology, molecular testing for MYD 88 on whole blood, if negative a marginal zone lymphoma with plasmacytic differentiation and paraprotein production would be considered and if positive then it would favor lymphoplasmacytic lymphoma PET scan confirmed abnormality seen on CT scan of the chest e.g. right pleural base nodule and also showed subcarinal lymph node and single lesion in C4. Could be third primary or part of lymphoplasmacytic lymphoma presentation At this point, we will consider referral to Dr. Acuña for right lower lobe pleural-based lesion evaluation Patient is not symptomatic as far as C4 lesion concerning, no neck pain, may consider MRI scan of C-spine Patient return to clinic in 1 month to continue port maintenance and for further discussion, with CBC CMP Signed By: Andérs Barbour M.D. <<Signature on File>>
== END 2020-02-16 23:59 | disposition home or self-care (01) ==
LOC: ONCMED 13:17
PROVIDERS: PCP Family Medicine; Visit Provider Internal Medicine Hematology & Oncology
DX: C18.3 Malignant neoplasm of hepatic flexure (principal); F41.9 Anxiety disorder, unspecified; C78.01 Secondary malignant neoplasm of right lung; C77.2 Secondary and unspecified malignant neoplasm of intra-abdominal lymph nodes; C79.51 Secondary malignant neoplasm of bone; Z90.49 Acquired absence of other specified parts of digestive tract; Z92.21 Personal history of antineoplastic chemotherapy
CPT/HCPCS: 36415; 36591; 80053; 85025; 99214

== ENCOUNTER 2020-03-14 11:00 | Outpatient (RCR) | payer OTHER, SELFPAY ==
[2020-03-04 15:51] LABS: Basophils % 0.5 %; Eosinophils # 0.1 10^3/uL (0.0-0.8); Eosinophils % 2.2 %; Hematocrit 41.3 % (42.0-52.0); Hemoglobin 13.6 g/dL (11.7-16.6); Lymphocytes # 2.3 10^3/uL (0.8-4.8); Lymphocytes % 38.8 %; Mean Corpuscular HGB Conc 32.9 g/dL (30.0-36.0); Mean Corpuscular Hemoglobin 35.8 pg (28.0-34.0); Mean Corpuscular Volume 108.7 fL (80-94); Monocytes # 0.7 10^3/uL (0.2-0.9); Monocytes % 12.1 %; Neutrophils # 2.75 10^3/uL (1.8-7.7); Neutrophils % 46.2 %; Nucleated Red Blood Cells % 0 %; Platelet Count 199 10^3/cmm (130-400); Red Cell Distribution Width 12.2 % (12.1-15.1)
[2020-03-04 18:37] LABS: Alanine Aminotransferase 42 U/L (0-41); Albumin Level 3.8 g/dL (3.5-5.2); Alkaline Phosphatase 101 IU/L (40-130); Anion Gap 17.1 (5-19); Aspartate Amino Transferase 39 U/L (0-40); Blood Urea Nitrogen 11 mg/dL (8-23); Carbon Dioxide 23 mmol/L (22-29); Chloride 103 mmol/L (98-107); Glomerular Filtration Rate 85.2 mL/min (90-130); Glucose 121 mg/dL (65-115); Osmolality Calculated 287 mOsm/kg (285-295); Sodium 140 mmol/L (136-145); Total Bilirubin 0.5 mg/dL (0.15-1.2); Total Protein 7.8 g/dL (6.6-8.7)
[2020-03-04 18:46] LABS: Potassium 3.1 mmol/L (3.5-5.1)
--- NOTE | 2020-03-05 17:46 | ONC FU_ITS ---
Dr. Barbour follow up note Patient: Rich Potts Unit #: [id number]: 1955 Dicatated By: Andrés Barbour M.D.Date of Visit:Mar 05, 2020 Onc Med Follow-up/Prog Note History of Present Illness: Mr. Potts is a 65-year-old gentleman who underwent surveillance colonoscopy. It revealed a mass in the hepatic flexure. A biopsy was obtained which showed adenocarcinoma arising in the background of tubular adenoma. There was another friable polyp seen which was completely removed, but did show tubular adenoma with high-grade dysplasia. CT scan of abdomen reported no direct evidence of metastatic disease. Mr Potts underwent ascending colon and terminal ileum, right hemicolectomy on 01/24/2019. The pathology reported low-grade, well to moderately differentiated infiltrating adenocarcinoma with limited penetration through muscularis propria into serosal connective tissue. Tumor arising immediately adjacent to tubulovillous adenoma with severe dysplasia T3 Smaller, separate invasive carcinoma focus measuring 1 x 1 cm. Surgical margins clear but as per discussion with Dr. 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 2 nodes were positive( microscopic clusters/ )14 node examined N1b MSI/MMR intact recommended treatment with 12 cycles of FOLFOX. He began his first cycle on 04/04/19. His dose has been modified to hold the 5 FU bolus. Mr Potts has completed 11 cycles and has had complications due to the chemotherapy of neutropenia/thrombocytopenia. His cycle 4 was held an additional week due to the neutropenia. He was due for chemo and his ANC was 900. He was delayed a week and recovered to 1800. His day 8 ANC then was 1600. His platelet count was 72,000 at that time as well. Neulasta was ordered and it began with cycle Cycle 6. He has had no further neutropenia since that addition. He has had mildly fluctuating AST/ALT.total bilirubin but has been asymptomatic. his adjuvant chemotherapy was concluded after 11 cycles of FOLFOX as patient continued to have mildly fluctuated ALT AST and bilirubin etiology was unclear and abdominal sonogram shows no abnormality in the liver and biliary drainage system. Abdominal sonogram was done on 11/16/2019 showed no abnormality seen in the liver or bile duct drainage system. Hepatitis profile checked on 11/01/2019 shows nonreactive with hepatitis B surface antibody 3.5, and consistent with immunity, hepatitis C is nonreactive Serum protein electrophoresis confirmed restricted band migrating in gamma region, immunofixation confirmed IgM kappa monoclonal band present. And follow-up CMP shows persistent mildly elevated but stable bilirubin and AST/ALT. CT scan of chest abdomen pelvis done on January 04, 2020 showed in the right lung base there is a pleural-based mass smiling 2.1 cm and this mass is adherent to medial pleura. No destructive changes surrounding this area. Mass is seen extending off the posterior wall of right lower lobe lung. CT scan of the abdomen shows normal appearance of the liver, no filling defects seen adrenal gland normal gallbladder normal no stones spleen is normal. And CT scan of abdomen pelvis done on November 2018 at [facility] showed there was no acute process referable to visualized lower thorax and liver gallbladder biliary tree are normal. The spleen contain an occasional calcified granuloma otherwise unremarkable. 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 Background decrease trilineage hematopoiesis detected. Adequate iron. Bone marrow flow cytometry confirmed occasional B-cell noted with a slight predominance of kappa light chain expression no overtly aberrant myeloid or lymphoid population detected Serum protein electrophoresis confirmed restricted band migrating in gamma region, immunofixation confirmed IgM kappa monoclonal band present. 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 CT PET scan done on January 27, 2020 showed there is a 2.3 x 1.5 cm with SUV of 8.8 right lower lobe nodule abutting pleura consistent with metastatic disease a roughly 1.8 cm subcarinal node has SUV of 5. A groundglass opacity in the lateral left lower lobe is FDG negative. A lytic lesion at C4 with SUV of 8.3 consistent with osseous metastatic disease Patient was referred to Dr. Acuña for evaluation of right lower lobe lung mass to rule out metastatic disease versus second primary versus lymphoma versus inflammation patient saw Dr. Acuña on February 22, [address] Acuña recommended resection of right lower lobe lung nodule after evaluating PFTs. Came for follow-up, denies any specific complaint except some discomfort in left neck especially with turning left to right, denies any trauma to his neck, denies any pain in the neck or pain radiating to his arms or numbness in the arms. No night sweats, no recurrent fever, no weight loss, no abdominal fullness, no peripheral lymphadenopathy., No hemoptysis or hematemesis, no bony pains. No melena or hematochezia, patient has seen Dr. Acuña recently and now waiting for COVID testing and PFTs prior to right lower lobe lung nodule resection/biopsy. Medications: Albuterol Sulfate 2 puff(s) (of 108 (90 base) mcg/act) Aerosol Powder, Breath Activated Inhalation q 4 hours PRN, ALPRAZolam 1 Tablet (of 0.5 mg) Oral t.i.d. PRN, Atorvastatin Calcium 1 Tablet (of 40 mg) Oral daily, FLUoxetine HCl 1 Tablet (of 40 mg) Capsule Oral daily, Gabapentin 1 Capsule (of 300 mg) Oral t.i.d., Lisinopril 1 Tablet (of 20 mg) Oral daily, Propranolol HCl 1 Tablet (of 10 mg) Oral b.i.d., Sildenafil Citrate 1 Tablet (of 100 mg) Oral PRN Allergies: No Known Allergies. Review of Systems: Constitutional - Appetite has been poor and weight is stable. No fever, chills, hot flashes, or night sweats. Energy level is fair, ENMT - No sinus congestion/drainage. No mouth sores. No sore throat or difficulty swallowing, Hematologic/Lymphatic - No abnormal bruising or bleeding, Respiratory - No shortness of breath. No cough. No pleuritic pain or hemoptysis, Cardiovascular - No angina pain. No palpitations, Gastrointestinal - Positive for nausea, no vomiting. No heartburn or acid reflux. Positive for diarrhea, no constipation. No blood in the stool or black stools, Genitourinary (M) - No dysuria or hematuria. No urinary frequency. No urgency or incontinence, Musculoskeletal - No joint or bone pain, Neurologic - No headache or dizziness. Positive for tremors, Psychiatric - Positive for anxiety and insomnia. Vital Signs: Performed on Mar 05, 2020 10:23 Height - 76.50 in Weight - 185.0 lbs (HIGH) BSA - 2.15 sq.m BMI - 22.23 Temperature - 97.6 F (LOW) Pulse - 85 /min Respiration - 20 /min BP - 137/81 mm(hg) O2 Sat - 99 % Pain - 0 Performance Status: 0 - Fully active, able to carry on all predisease activities without restrictions. (ECOG) Physical Examination: ENMT - No mouth sores, no thrush, no jaundice, Respiratory - Lungs are clear, Cardiovascular - Regular rate and rhythm of heart, Abdomen - Soft, bowel sounds present, Extremities - No visible edema. Lab/Imaging: Test performed on Feb 01, 2020 10:07 Sodium 140 mmol/L Potassium 3.5 mmol/L Chloride 104 mmol/L CO2 23 mmol/L Anion Gap 16.5 BUN 13 mg/dL Creatinine 0.9 mg/dL Cr Clearance (Est) 99.7200 mL/min eGFR 85.2 mL/min Glucose 134 mg/dL Calcium 9.3 mg/dL Protein, Total 7.7 g/dL Albumin 3.9 g/dL Globulin 3.8 g/dL Bilirubin, Total 1.0 mg/dL ALT (SGPT) 43 U/L AST (SGOT) 42 U/L Alkaline Phosphatase 95 IU/L WBC 5.9 10 3/uL RBC 3.82 10 6/uL HGB 13.3 g/dL HCT 41.0 % MCV 107.3 fL MCH 34.8 pg MCHC 32.4 g/dL RDW 11.9 % Platelet Count 213 10 3/cmm MPV 9.4 fL Neutrophils 2.90 10 3/uL Lymphocytes 2.0 10 3/uL Monocytes 0.8 10 3/uL Eosinophils 0.1 10 3/uL Basophils 0.1 10 3/uL Neutrophil % 49.3 % Lymphocyte % 34.0 % Monocyte % 13.6 % Eosinophil % 2.0 % Basophils % 0.9 % NRBC % 0 % Test performed on November 20, 2019 10:20 LDH (Total) 355 U/L IgG 2151 mg/dL IgA 269 mg/dL IgM 1905 mg/dL Impression: Infiltrating adenocarcinoma, low-grade, well to moderately differentiated status post ascending colon and terminal ileum, right hemicolectomy done on 01/24/2019 Final pathology report showed limited penetration through muscularis propria into serosal connective tissue, smaller, separate invasive carcinoma focus measuring 1 x 1 cm Clear surgical margin but DCIS at staple line. pT3 2 out of 14 lymph nodes were examined showed microscopic clusters pN1b, MSI/MMR intact CT scan of abdomen pelvis done on 11/16/2018 showed no evidence of metastatic disease. Stage IIIB Mr Potts was offered treatment with FOLFOX. He began his first cycle on 04/04/2019. He has tolerated it well overall with the exception of thrombocytopenia and chemo induced neutropenia. He has responded well to Neulasta for the neutropenia. patient completed 11/12 cycles ofmodified dose FOLFOX on 10/10/2019, chemotherapy was concluded after 11 doses because of persistent abnormal AST/ALT and mildly elevated bilirubin around 1.3. Hepatitis profile was ordered which was nonreactive. His CMP also showed elevated total protein, for which serum protein electrophoresis was done on 11/01/2019 which confirmed restrictive band migrating in the gamma region, immunofixation confirmed IgM kappa monoclonal band. Plan: Discussed with patient regarding his labs white blood count 6 hemoglobin 13.6 crit 41.3 platelets 199,000 CMP within normal limit except potassium 3.1 and transaminases almost normalized e.g. ALT 42 normal being less than 41, We have multiple issues going on currently but priority is his right lower lobe lung nodule, as marginal zone lymphoma, is not causing any symptoms at this moment unless biopsy confirmed pulmonary involvement, may be C-spine involvement. Clinically, patient doing well with no new signs symptoms, no B symptoms, no peripheral lymphadenopathy, bone marrow evaluation confirmed involvement with 70 to 80% bone marrow with small B-cell lymphoma, patient also had monoclonal gammopathy so MYD88 mutation was checked and it came back negative favored marginal zone lymphoma with plasmacytic differentiation with paraproteinemia rather lymphoplasmacytic lymphoma. And clinically he is asymptomatic from lymphoma point of view, CBC shows no cytopenia and no peripheral lymphadenopathy or organomegaly. Other concern is right lower lobe lung nodule and subcarinal lymph node and C4 lesion e.g. pulmonary malignancy versus metastatic/recurrent colorectal cancer or lymphoma or inflammatory. Patient was referred to Dr. Acuña, whom he has seen recently and right lower lobe nodule biopsy/resection is under consideration, patient is awaiting PFTs, will follow with Dr. Acuña, If right lower lobe lung nodule confirm lymphomatous involvement, then will consider GI evaluation to rule out GI involvement Now with new neck discomfort which could be musculoskeletal but his CT PET scan shows C4 lytic lesion, we will consider MRI scan of C-spine to assess C4 anatomy or for any impending compression fracture. Patient was advised in case he has any worsening of neck pain or weakness in the upper extremities he need to go to hospital immediately. Patient return to clinic after MRI scan of the neck is done. Signed By: Andrés Barbour M.D. <<Signature on File>>
--- NOTE | 2020-03-14 10:20 | MR_ITS ---
WS: [id number] MRI CERVICAL SPINE NONCONTRAST TECHNIQUE: Sagittal T1, T2 and STIR imaging. Axial T2, gradient, and fiesta imaging. CLINICAL INFORMATION: RT COLON CANCER;NECK PAIN COMPARISON: None. FINDINGS: Straightening of the normal cervical lordosis. Cord signal is normal. Heterogeneous bone marrow signa l throughout the bony cervical spine. Marrow replacing lesion involving the C4 vertebral body with mo re focal lytic lesion centrally as seen on the recent PET/CT with FDG avid uptake. Small amount of ed nile in this area on the axial imaging. Metastatic lesion measures approximately 11 x 16 mm and abuts the posterior cortex. This extends slightly into the left C4 vertebral body about the left transverse foramen. No extension into the posterior elements. No significant epidural disease although moderate central canal stenosis at this level with effacement of surrounding CSF due to disc osteophyte compl ex. Gadolinium was not administered. No other FDG avid lesions on the prior PET/CT involving the cerv ical spine. Focal small 7 mm low signal lesion involving the C2 vertebral body not FDG avid on the re cent PET/CT. C2-C3: Mild facet arthropathy. Mild right greater than left bony foraminal narrowing. Mild facet arth ropathy. C3-C4: Disc osteophyte complex with endplate ridging. Moderate central canal stenosis. Moderate bilat eral bony foraminal narrowing with mild to moderate facet arthropathy. C4-C5: Mild disc osteophyte complex with a tiny central protrusion. Mild central canal stenosis. Mild to moderate left and mild right bony foraminal narrowing. Moderate right facet arthropathy. C5-C6: Disc osteophyte complex with endplate ridging eccentric to the right. Severe right foraminal n arrowing. Mild left foraminal narrowing. Moderate facet arthropathy. C6-C7: Disc osteophytic complex with endplate ridging. Severe left and moderate right bony foraminal narrowing. Mild facet arthropathy. Mild central canal stenosis. C7-T1: Disc osteophytic ridging. Moderate bilateral bony foraminal narrowing. Spectral canal is paten t. T1-T2: Normal. Visualized brain stem structures: Normal. Prevertebral soft tissues: Normal. MR/MR cervical spin wo con* [id number] IMPRESSION: 1. Replacement of the normal fatty bone marrow signal involving the C4 vertebr al body with T2 hyperintense lesion consistent with the FDG avid lytic metastas is seen on the recent PET/CT. This measures 1.1 x 1.6 cm and extends eccentric to the left about the transverse foramen. This abuts the posterior cortex but n o significant epidural disease. 2. Diffuse heterogeneous bone marrow signal throughout the cervical spine like ly due to treatment-related changes. Focal low signal lesion in the C2 vertebra l body not FDG avid on the recent PET/CT. 3. Moderate central canal stenosis C3-C4 due to disc osteophyte complex with c ontact of the cervical cord. Cord signal remains normal. 4. Mild central canal stenosis C5-C6 and C6-C7. 5. Multilevel moderate to severe bony foraminal narrowing worse at bilateral C 3-C4, left C4-C5, right C5-C6, and left C6-C7. Moderate bilateral C7-T1 bony fo raminal narrowing. 6. Asymmetric advanced facet arthropathy right C4-5. 7. Cord signal is normal.
== END 2020-03-18 23:59 | disposition home or self-care (01) ==
LOC: RADSHAW 11:00
PROVIDERS: Visit Provider Internal Medicine Hematology & Oncology
DX: C18.3 Malignant neoplasm of hepatic flexure (principal); M54.2 Cervicalgia; M48.02 Spinal stenosis, cervical region; M47.892 Other spondylosis, cervical region
CPT/HCPCS: 36415; 72141; 80053; 85025; 96523; 99214

== ENCOUNTER → 2020-04-26 09:29 | Outpatient (BNVA) | payer OTHER, SELFPAY | PROVIDERS: Visit Provider Thoracic Surgery (Cardiothoracic Vascular Surgery) | DX: Z11.59 Encounter for screening for other viral diseases (principal); Z20.828 Contact with and (suspected) exposure to other viral communicable diseases; R91.8 Other nonspecific abnormal finding of lung field | CPT/HCPCS: 87635 ==

== ENCOUNTER 2020-05-02 08:57 | Outpatient (CLI) | payer OTHER, SELFPAY ==
--- NOTE | 2020-05-02 14:07 | PFTS_ITS ---
Date of Study:05/02/20 Date of Dictation: MECHANICS: Forced vital capacity (FVC) is reduced. Forced expiratory volume in one second (FEV1) is reduced. FEV1/FVC is reduced. FLOW VOLUME LOOP: Reduced flow at all lung volumes. LUNG VOLUMES: Total lung capacity (TLC) is normal. Residual volume (RV) is increased. DIFFUSING CAPACITY FOR CARBON MONOXIDE: Mildly reduced. INTERPRETATION: The pulmonary function tests are consistent with moderate obstruction. Lung volumes are consistent with air trapping. Gas exchange (DLCO) is mildly reduced. MTDD
== END 2020-05-02 08:58 | disposition home or self-care (01) ==
LOC: RT 09:00
PROVIDERS: Visit Provider Thoracic Surgery (Cardiothoracic Vascular Surgery)
DX: R91.8 Other nonspecific abnormal finding of lung field (principal)
CPT/HCPCS: 94010; 94729

== ENCOUNTER → 2020-05-22 13:38 | Outpatient (BNVA) | payer OTHER, SELFPAY | PROVIDERS: Visit Provider Thoracic Surgery (Cardiothoracic Vascular Surgery) | DX: Z11.59 Encounter for screening for other viral diseases (principal); R91.8 Other nonspecific abnormal finding of lung field | CPT/HCPCS: 87635 ==

== ENCOUNTER 2020-05-27 09:56 | Inpatient (IN) | payer OTHER, SELFPAY ==
[2020-05-22 11:03] VITALS: BMI 21.6
--- NOTE | 2020-05-22 11:53 | ANES.PREANE2 ---
Pre-Anesthetic Assessment Pre-Anesthetic Assessment: Height/Weight: Height 1.94 m Weight 81.647 kg Preop Diagnosis: Right lower lobe lung mass with history of colon cancer Proposed Procedure: Operation Date: 05/27/20 07:00 Proposed Procedures p Lobectomy(Right) - Sharif Acuña MD Familial anesthetic complications: None Social: Social History: Alcohol (drinks up to 4-5 beers daily) and Tobacco Exam: Pre-Anes Outpt Exam: alert, oriented x 3, clear to auscultation bilaterally and regular rate & rhythm Airway: Cervical ROM: Other (somewhat limited extension (neck and shoulders ache)) Dentition: False Pulmonary: Comments: RLLL mass, denies COPD and SOB CV/HEM: CV/HEM: HTN Comments: Says he can walk [place] and [place] a [place] to the [place] Neuropsych: Comments: Tremor Anesthetic Plan: ASA status: 3 Anesthesia: General and Regional (specify below) (epidural) Risk of > 500 ml blood loss (7ml/kg in children): No PFSH Anesthesia PFSH: Medical History (Updated 03/14/20 @ 13:42 by Sharif Acuña MD) Alcohol dependence Anxiety disorder COPD (chronic obstructive pulmonary disease) History of colon polyps Hyperlipidemia Hypertension Right lower lobe lung mass Surgical History History of colonoscopy (01/2019) History of right hemicolectomy (~01/2019) Malignant neoplasm of hepatic flexure Family History Family/Other Cancer Mother Stroke Denies family history of Anesthesia complication Bleeding disorder Social History Smoking and tobacco status: current every day smoker cigarettes Second hand smoke exposure: Yes Alcohol intake: current Alcohol intake frequency: 3 or more drinks per day Alcohol type: beer and hard liquor Data Anesthesia Cardiac Studies: No Data to Display
[2020-05-22 11:56] LABS: Basophils % 0.6 %; Eosinophils # 0.1 10^3/uL (0.0-0.8); Eosinophils % 2.1 %; Hematocrit 40.1 % (42.0-52.0); Hemoglobin 13.4 g/dL (11.7-16.6); Lymphocytes # 2.4 10^3/uL (0.8-4.8); Lymphocytes % 35.7 %; Mean Corpuscular HGB Conc 33.4 g/dL (30.0-36.0); Mean Corpuscular Volume 104.7 fL (80-94); Mean Platelet Volume 8.7 fL (7.4-10.4); Neutrophils # 3.23 10^3/uL (1.8-7.7); Neutrophils % 47.5 %; Nucleated Red Blood Cells % 0 %; Platelet Count 252 10^3/cmm (130-400); Red Blood Count 3.83 10^6/uL (4.1-5.3); Red Cell Distribution Width 12.1 % (12.1-15.1); White Blood Count 6.8 10^3/uL (4.0-10.0)
[2020-05-22 12:09] LABS: INR 0.94 (0.8-1.2)
[2020-05-22 12:19] LABS: Add Urine Microscopic? YES; Bilirubin Urine Neg (Negative); Blood Urine 2+ (Negative); Glucose Urine UA Norm (Normal); Ketones Urine Negative (Negative); Leukocyte Esterase Urine Negative (Negative); Nitrate Urine Negative (Negative); Protein Urine Neg (Negative); Urine Appearance Hazy (CLEAR); Urine Color Yellow (Yellow); Urobilinogen Urine 1 mg/dL (Negative); pH Urine 5 (5-7)
[2020-05-22 12:20] LABS: Alanine Aminotransferase 72 U/L (0-41); Albumin Level 4.1 g/dL (3.5-5.2); Alkaline Phosphatase 159 IU/L (40-130); Anion Gap 14.4 (5-19); Aspartate Amino Transferase 51 U/L (0-40); Blood Urea Nitrogen 10 mg/dL (8-23); Calcium 9.2 mg/dL (8.5-10.5); Carbon Dioxide 26 mmol/L (22-29); Chloride 101 mmol/L (98-107); Globulin 3.7 g/dL (1.3-4.6); Glomerular Filtration Rate 85.2 mL/min (90-130); Glucose 91 mg/dL (65-115); Osmolality Calculated 283 mOsm/kg (285-295); Potassium 4.4 mmol/L (3.5-5.1); Sodium 137 mmol/L (136-145); Total Bilirubin 1.2 mg/dL (0.15-1.2); Total Protein 7.8 g/dL (6.6-8.7)
[2020-05-22 12:20] LABS: Bacteria Urine TRACE /hpf; Mucus Urine 3+ /hpf; WBC Urine 0-4 /hpf (0-5)
[2020-05-22 12:21] LABS: Add Urine Culture? No
[2020-05-27] VITALS (16 sets, daily range): BP systolic 84–109; BP diastolic 54–79; PULSE 44–92; RESP 5–23; TEMP 36.5–36.9; O2SAT 88–100
[2020-05-27] MEDS: sodium chloride 0.9% 1,000 ML 30 ML IV (06:07)
--- NOTE | 2020-05-27 06:09 | XR_ITS ---
WS: [id number] CHEST XRAY TECHNIQUE: Portable chest. CLINICAL INFORMATION: right lobectomy COMPARISON: FINDINGS: Right central venous catheter with tip in proximal SVC. Heart: Normal cardiac silhouette. Lungs: Moderate chronic emphysematous changes. No acute pulmonary infiltrates. No focal pneumonia or pleural fluid. Bones: Normal visualized bony structures. XR/XR chest 1V portable [id number] IMPRESSION: 1. Prior postoperative changes partial right lower lobectomy. 2. Right central venous catheter with tip in the proximal SVC. 3. No acute pulmonary infiltrates. 4. Moderate chronic emphysematous changes.
--- NOTE | 2020-05-27 06:17 | P.HP_ITS ---
Providers/Chief Complaint Admitting Physician: Dr. Acuña Chief Complaint: Lung Mass History of Present Illness Rich Potts is a 65 year old male whom I originally saw in consultation back on February [address] Barbour from oncology for surgical opinion concerning a 2.1 cm pleural-based mass situated posteriorly and superiorly in the right lower lobe identified on the CT scan of January 03 as part of surveillance for known colon cancer. Mr. Potts had undergone an hemicolectomy by Dr. 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 He has undergone [address] scan of January 03 of this year was performed as part of surveillance post therapy and revealed no abnormal pathology in the abdomen but this new 2.1 cm lesion of the right lower lobe which was pleural- based. PET scan performed in January of this year did reveal increased activity with an SUV of 8.8. There is been a small amount of growth in the lesion as well now there is some activity noted and a 1.8 cm subcarinal lymph node. He also has a lytic lesion of C4 of the cervical spine with SUV of 8.3 which is concerning for metastatic disease. He has a long history of tobacco use since his early teens he continues to smoke at least a pack a day. Does drink 1-2 alcoholic drinks daily. Since my original exam with him, he has been seen again by Dr. Barbour on March 05 who again confirmed recommendations for surgical resection of this pulmonary lesion. PFTs were performed on May 02 reveals an FEV1 of 2.4 which is 57% of predicted and an FVC of 3.79 which is 68% of predicted. His FEF 25/75 is 1.51 which is 46% of predicted. Katlyn does have some cognitive challenges and does have a power of attorney general who directs his medical care. It has been difficult to make arrangements for this subsequent surgery, therefore resulting in some delays since his original presentation to me. Presents today with his power of attorney general. Review of Systems Const: Denies: fever(s), chills, change in appetite, change in weight, fatigue or night sweats Eyes: Denies: change in vision or blurry vision ENMT: Denies: odynophagia or hoarseness Card: Denies: chest pain, palpitations, irregular heart rhythm or edema Resp: Denies: dyspnea or productive cough GI: Denies: abdominal pain, nausea, vomiting, dysphagia, heartburn or change in bowel habits : Denies: difficulty urinating, dysuria, urinary frequency, urinary urgency or urinary hesitancy Musc: Denies: extremity pain or extremity swelling Skin/Breast: Denies: rash Neuro: Denies: headache(s), numbness in extremities, weakness in extremities or sensory changes Psych: Denies: anxiety, depression or change in appetite Endo: Denies: polyuria, polydipsia or cold intolerance Gregg/Lymph: Denies: easy bruising, easy bleeding, petechiae or enlarged lymph nodes Medications/Allergies Home Medications Medication Instructions Recorded Confirmed Last Taken Type albuterol sulfate 90 mcg/actuation 2 puff INHALATION Q6H PRN 09/27/19 05/27/20 05/26/20 History aerosol inhaler alprazolam 0.5 mg tablet 0.5 mg PO TID PRN 09/27/19 05/27/20 05/27/20 History fluoxetine 20 mg capsule 20 mg PO DAILY 09/27/19 05/27/20 05/26/20 History gabapentin 300 mg capsule 300 mg PO TID 09/27/19 05/27/20 05/26/20 History lisinopril 20 mg tablet 10 mg PO DAILY tab 09/27/19 05/27/20 05/27/20 04:00 History propranolol 10 mg tablet 10 mg PO BID 09/27/19 05/27/20 05/27/20 04:00 History sildenafil 100 mg tablet 100 mg PO DAILY PRN 09/27/19 05/22/20 Unknown History Allergies Allergy/AdvReac Type Severity Reaction Status Date / Time No Known Allergies Allergy Verified 09/30/19 07:55 PFSH Acute PFSH: Medical History Alcohol dependence Anxiety disorder COPD (chronic obstructive pulmonary disease) History of colon polyps Hyperlipidemia Hypertension Right lower lobe lung mass Surgical History History of colonoscopy (01/2019) History of right hemicolectomy (~01/2019) Malignant neoplasm of hepatic flexure Family History Family/Other Cancer Mother Stroke Denies family history of Anesthesia complication Bleeding disorder Social History Smoking and tobacco status: current every day smoker cigarettes Second hand smoke exposure: Yes Alcohol intake: current Alcohol intake frequency: 3 or more drinks per day Alcohol type: beer and hard liquor Vitals/I&O/Wt Last Vital Signs Temp 97.7 F 05/27/20 05:46 Pulse 65 05/27/20 05:46 Resp 18 05/27/20 05:46 BP 102/79 05/27/20 05:46 Pulse Ox 98 05/27/20 05:46 Physical Exam Const: COMMON NORMALS: patient oriented x3 and alert ORIENTATION /CONSCIOUSNESS: Yes oriented to person, Yes oriented to place and Yes oriented to time HENMT: COMMON NORMALS: normocephalic HEAD & SCALP: normocephalic Neck/C-Spine: COMMON NORMALS: full ROM, supple, no JVD and No carotid bruits GENERAL: Yes trachea midline CERVICAL SPINE: Yes cervical ROM normal Chest: COMMONS NORMALS: normal inspection of the chest and normal palpation of entire chest wall Resp: COMMON NORMALS: normal respiratory effort, No use of accessory muscles, clear to auscultation bilaterally and percussion normal EFFORT & INSPECTION: Yes able to speak in complete sentences and Yes symmetric chest movement AUSCULTATION: clear to auscultation bilaterally PERCUSSION: percussion normal Cardio: COMMON NORMALS: no JVD, regular rate, regular rhythm, S1 normal heart sound present, S2 normal heart sound present, No gallops present (Cardio), No murmurs present (Cardio), No rub (Cardio) and Peripheral pulses 2+ throughout JUGULAR VENOUS DISTENTION: no JVD RATE: regular rate RHYTHM: regular rhy thm HEART SOUNDS: S1 normal heart sound present and S2 normal heart sound present PERIPHERAL PULSES: Peripheral pulses 2+ throughout Neuro: COMMON NORMALS: patient oriented x3, no focal motor deficits and no sensory deficits noted SENSORIUM/ORIENTATION: Yes alert, Yes oriented to person, Yes oriented to place and Yes oriented to time GAIT: Yes Normal gait present Data : 05/22/20 11:40 05/22/20 11:40 A&P Assessment and plan (1) Right lower lobe lung mass: Despite some cognitive challenges, it is clear that Mr. Potts does un derstand about the mass in his right lung and the recommendation to removed. With his POA present, I did discuss the general technical aspects of the surgery, in particular related to right thoracotomy and expected postop pain and care in the ICU. He appears to have a clear understanding of this and his POA have given permission for us to proceed with full understanding of the details of risk of such a surgery. I will keep in close contact with the POA in the postoperative period as well as with Dr. Barbour. Status: Acute Attestations Medical Necessity Statement*: Right lower lobe lung mass, concerning for metastatic disease with history of colon cancer status post hemicolectomy Time Spent in Patient Care: Greater than 35 minutes Coding Level of Care Code Acute Sample Preparation Supervisor for Manuel Kaiser Diagnoses Right lower lobe lung mass R91.8
--- NOTE | 2020-05-27 06:50 | ANES.PREANE2 ---
Pre-Anesthetic Assessment Pre-Anesthetic Assessment: Height/Weight: Height 1.94 m Weight 81.647 kg Temp Pulse Resp BP Pulse Ox 97.7 F 65 18 102/79 98 05/27/20 05:46 05/27/20 05:46 05/27/20 05:46 05/27/20 05:46 05/27/20 05:46 Preop Diagnosis: Right lower lobe lung mass with history of colon cancer Proposed Procedure: Operation Date: 05/27/20 07:00 Proposed Procedures p Lobectomy(Right) - Sharif Acuña MD Was Beta Sissy taken within 24 hours: Yes Last intake: Intake Last Liquid Date 05/26/20 Last Liquid Time 17:00 Last Solid Date 05/26/20 Last Solid Time 17:00 Social: Social History: Alcohol and Tobacco Exam: Pre-Anes Outpt Exam: alert, oriented x 3 and regular rate & rhythm Additional Exam Findings (including area of procedure): Diminished BS Airway: Submandibular: WNL Cervical ROM: WNL MP: 1 Dentition: False Pulmonary: Pulmonary: COPD and SOB CV/HEM: CV/HEM: HTN : : None reported Hepatic: Hepatic: None reported GI: GI: None reported Metabolic: Metabolic: None reported Musc/skel: Musc/skel: Weakness Comments: Tremor Neuropsych: Neuropsych: None reported Anesthetic Plan: ASA status: 3 Anesthesia: General and Regional (specify below) Other: Consneted for thoracic epidural Meds/Allergies Current Medications: Current Medications Generic Name Dose Route Start Last Admin Trade Name Freq PRN Reason Stop Dose Admin Sodium Chloride 1,000 mls @ 30 ml s/hr 05/27/20 05:45 05/27/20 06:07 Sodium Chloride 0.9% IV 05/28/20 05:44 30 mls/hr .Q24H BACILIO Administration PFSH Anesthesia PFSH: Medical History Alcohol dependence Anxiety disorder COPD (chronic obstructive pulmonary disease) History of colon polyps Hyperlipidemia Hypertension Right lower lobe lung mass Surgical History History of colonoscopy (01/2019) History of right hemicolectomy (~01/2019) Malignant neoplasm of hepatic flexure Family History Family/Other Cancer Mother Stroke Denies family history of Anesthesia complication Bleeding disorder Social History Smoking and tobacco status: current every day smoker cigarettes Second hand smoke exposure: Yes Alcohol intake: current Alcohol intake frequency: 3 or more drinks per day Alcohol type: beer and hard liquor Data Anesthesia CBC & Chem 7: 05/22/20 11:40 05/22/20 11:40 Other Labs: Laboratory Results - last 48 hr 05/22/20 11:40 Blood Type O Negative Rho(D) Type Negative Antibody Screen Negative Crossmatch See Detail Cardiac Studies: No Data to Display
--- NOTE | 2020-05-27 07:51 | ANES.PROC ---
Anesthesia Procedures Procedure/Date: 05/27/20 Epidural: Time Out Performed: Yes Consents Signed: Procedure Consent Consent: requested by attending/covering physician Thoracic Level: T10-T11 Epidural position: sitting Epidural procedure: sterile prep of area, 1% lidocaine to numb the area, 18 g needle, negative for paresthesia passed, neg for paresthesia, test dose given, 1.5% xylocaine 1:200k epi and sterile dressing applied Additional Comments: Easy 2 pass low thioracic epidural with distinct ROMAN. Catheter advanced with great ease. Neg Test Dose. No paresthesia and very well tolerated.
--- NOTE | 2020-05-27 07:53 | SUR.OPER ---
Called and notified family of surgical start.
[2020-05-27] MEDS: ceFAZolin 1,000 mg SDV 1000 MG IRRIGATION (08:00)
--- NOTE | 2020-05-27 09:02 | SUR.OPER ---
Called and updated family on surgical progress.
--- NOTE | 2020-05-27 11:01 | XR_ITS ---
WS: [id number] CHEST XRAY TECHNIQUE: Portable chest. CLINICAL INFORMATION: s/p Left lower lobe segmentectomy COMPARISON: May 27, 2020 FINDINGS: Right central venous catheter with tip in proximal SVC. Postoperative changes right lower lobe with c hest tube. Subcutaneous emphysema along the right lower lateral chest wall. Tiny right lateral pneumo thorax. Heart: Normal cardiac silhouette. Lungs: Moderate chronic emphysematous changes. No acute pulmonary infiltrates. Bones: Normal visualized bony structures. XR/XR chest 1V portable [id number] IMPRESSION: 1. Interval postoperative changes partial right lower lobe resection with thor acotomy. 2. Expected postoperative changes right lower lobe with subcutaneous emphysema along the right lateral chest wall and tiny right lateral pneumothorax. 3. Right lower lobe chest tube in place. 4. Right central venous catheter with tip in the proximal SVC.
--- NOTE | 2020-05-27 11:02 | P.OP_ITS ---
Operative Report Date of procedure: May 27, 2020 Pre-op Diagnosis: Right lower lobe lung mass with history of colon cancer Post-op diagnosis: same Post-op Findings: Intense inflammatory adhesions throughout the right hemithorax with tumor firmly adherent into the parietal pleura and subpleural layers posteriorly near the vertebrae Procedure Done: Muscle-sparing limited right posterior lateral thoracotomy with lysis of intense inflammatory lesions and segmentectomy of the superior segment right lower lobe with attached parietal pleura Specimens removed/disposition: Superior segment right lower lobe Surgeon: Sharif Acuña Anesthesia: General Complications: None Findings: Intense inflammatory adhesions throughout the right hemithorax with firmly affixed right lower lobe superior segment tumor posteriorly to the parietal pleura and subpleural tissues and adjacent to the thoracic spine Condition: stable Disposition: ICU Brief History: 65-year-old gentleman with prior history for right hemicolectomy for adenocarcinoma of the hepatic flexure with positive nodes. He has completed chemotherapy and been followed carefully by Dr. Barbour from oncology. Subsequent CT scan of chest abdomen and pelvis revealed no acute pathology in the abdomen but a 2.1 cm posterior lesion of the superior segment of the right lower lobe which subsequently was found to have increased activity on PET scan. Lesion has shown slow growth. Dr. Barbour has recommended resection. Details and risk of the procedure were carefully and frankly discussed Mr. Potts and his power of assistant prosecuting attorney, Ms. Catherine Garcia. All questions answered. Appropriate consents have been reviewed and signed. Procedure: Mr. Potts was taken to the operating room theater and carefully positioned in sitting where an thoracic epidural catheter was separately placed by our anesthesia colleagues. He was then carefully returned to the supine position where appropriate IVs were confirmed. He underwent general endotracheal intubation the double-lumen endotracheal tube placed and confirmed by endoscopy. He was then carefully positioned in the left lateral cubitus position over axillary roll with protective padding. Appropriate timeout was performed. He was sterilely prepped and draped. A limited, muscle-sparing, posterior lateral thoracotomy incision was made carried down through the subcutaneous tissues until the fifth intercostal space was reached right lung was deflated. Right chest was entered where there was immediately noted to be dense and intense inflammatory lesions between the lung and the parietal pleura. An extensive period of time was required to sharply take down these adhesions both anteriorly and superiorly and posteriorly, inferiorly, and medially. Eventually, we were able to place a tuffier retractor to provide further exposure and then eventually able to place a Finochietto retractor. Further dissection was required sharply to take down further adhesions toward the mediastinum. Posteriorly, we were able to notify the lesion of concern which was densely adhered to the posterior parietal pleura adjacent to the thoracic spine. Much this dissection was performed sharply for fear of excessive heat generating from the Bovie being near the thoracic spine. Eventually, were able to free the lesion with associated attached pleura and subpleural adipose tissue. Dissection was then continued medially, performed sharply, to further release the lung as we crossed the azygos vein toward the proximal portion of the right main bronchus. Next, we utilized endoscopic staplers to perform a segmentectomy of the superior segment of the right lower lobe as all normal anatomic fissure landmarks were obliterated from the intense adhesions and inflammatory reaction. Specimen was then removed, and sent to pathology for permanent sectioning. Right lung was reinflated with a modest air leak at the staple lines noted. Cautery was utilized judiciously except in the paraspinous position to control multiple inflammatory bleeding points. A single pleural drain was placed posteriorly and inferiorly. It was connected to Pleur-evac drain at 20 cm of suction. The chest Was irrigated with large amounts of antibiotic solution. Lung was reinflated. Modest air leak noted along the staple line. Retractors were then removed. Sponge and needle count was correct x2. Chest wall was reapproximated with #2 Vicryl suture. Fascia was then closed with #1 Vicryl suture. Subcutaneous layer was closed with 2-0 Vicryl suture. Skin was reapproximated in a subcuticular manner with 3-0 Monocryl suture. Sterile dressings were applied. Mr. Potts was returned to the supine position where he was awakened and extubated. He was then transferred to the ICU in stable condition. We did contact his power of assistant prosecuting attorney for an update and this was done throughout the procedure as well.
[2020-05-27] MEDS: lactated ringers 1,000 ML 150 ML IV ×2 (11:54→20:16)
--- NOTE | 2020-05-27 12:56 | PM.PACU ---
PACU note PACU note: Good pain control with epidural HOME ECONOMIST CONSUMER SERVICE Post-Anesthesia Exam: somnolent, arousable and vital signs stable Disposition: admitted
--- NOTE | 2020-05-27 12:56 | P.PCN_ITS ---
PACU note PACU note: Good pain control with epidural DOCUMENT PROCESSOR Post-Anesthesia Exam: somnolent, arousable and vital signs stable Disposition: admitted
[2020-05-27] MEDS: sodium chloride 0.9% 500 ML 999 ML IV (13:00)
[2020-05-27 14:07] LABS: Basophils % 0.2 %; Hematocrit 34.5 % (42.0-52.0); Lymphocytes # 1.1 10^3/uL (0.8-4.8); Lymphocytes % 12.8 %; Mean Corpuscular HGB Conc 31.9 g/dL (30.0-36.0); Mean Corpuscular Hemoglobin 35.3 pg (28.0-34.0); Mean Corpuscular Volume 110.6 fL (80-94); Mean Platelet Volume 8.8 fL (7.4-10.4); Monocytes # 0.7 10^3/uL (0.2-0.9); Monocytes % 8.9 %; Neutrophils # 6.43 10^3/uL (1.8-7.7); Neutrophils % 77.7 %; Nucleated Red Blood Cells % 0 %; Platelet Count 183 10^3/cmm (130-400); Red Blood Count 3.12 10^6/uL (4.1-5.3); Red Cell Distribution Width 12.4 % (12.1-15.1); White Blood Count 8.3 10^3/uL (4.0-10.0)
--- NOTE | 2020-05-27 20:27 | PC.NURSE ---
1100 RECEIVED FROM OR PER BED, O2 PER SIMPLE MASK @8L/NC. PT AWAKE/GROGGY. IVF INFUSING TO LEFT AC, ARTERIAL LINE TO RIGHT RADIAL WITH GOOD WAVEFORM. SCD'S ON/WORKING. DRESSING TO RIGHT INCISION C/D/I. SMALL LEAK NOTED TO RIGHT CHEST TUBE, DR GARCIA AWARE. EPIDURAL OF ROPIVICAINE EFFECTIVE, PT DENIES ANY DISCOMFORT D/T SURGERY. EID TO GRAVITY.
[2020-05-27] MEDS: ketorolac 30 mg/mL INJ IVP (20:29)
[2020-05-27] MEDS: gabapentin 300 mg Capsule PO (20:34)
[2020-05-27] MEDS: morphine 4 mg/mL SDV 1 mL 2 MG IVP ×2 (21:37→23:56)
[2020-05-28] VITALS (13 sets, daily range): BP systolic 90–118; BP diastolic 53–68; PULSE 62–92; RESP 4–23; TEMP 36.8–37.4; O2SAT 93–98
[2020-05-28] MEDS: ketorolac 30 mg/mL INJ IVP ×3 (04:16→23:04)
[2020-05-28] MEDS: lactated ringers 1,000 ML 150 ML IV ×3 (04:32→17:04)
[2020-05-28 05:52] LABS: Basophils % 0.2 %; Eosinophils # 0.1 10^3/uL (0.0-0.8); Eosinophils % 0.6 %; Hematocrit 31.9 % (42.0-52.0); Hemoglobin 10.2 g/dL (11.7-16.6); Lymphocytes # 2.2 10^3/uL (0.8-4.8); Lymphocytes % 26.3 %; Mean Corpuscular Hemoglobin 34.7 pg (28.0-34.0); Mean Corpuscular Volume 108.5 fL (80-94); Mean Platelet Volume 9.3 fL (7.4-10.4); Monocytes # 1.3 10^3/uL (0.2-0.9); Neutrophils % 57.5 %; Nucleated Red Blood Cells % 0 %; Platelet Count 177 10^3/cmm (130-400); Red Blood Count 2.94 10^6/uL (4.1-5.3); Red Cell Distribution Width 12.1 % (12.1-15.1); White Blood Count 8.3 10^3/uL (4.0-10.0)
--- NOTE | 2020-05-28 06:00 | XR_ITS ---
WS: [id number] XR chest 1V portable [id number] REASON FOR EXAM: POD#1 s/p Left lower lobe segmentectomy FINDINGS: Compared to the chest x-ray of the previous day, the subcutaneous emphysema along the right lateral c hest wall base of the right neck is resolving. A right chest tube remains in place in the right lung appears fully inflated. Right chest wall port w ith right IJ catheter remains in position. No acute infiltrates and minimal blunting of the costophrenic angles. XR/XR chest 1V portable [id number] IMPRESSION: Stable postoperative chest as above.
[2020-05-28 06:14] LABS: Anion Gap 11.9 (5-19); Blood Urea Nitrogen 18 mg/dL (8-23); Calcium 7.8 mg/dL (8.5-10.5); Carbon Dioxide 26 mmol/L (22-29); Chloride 106 mmol/L (98-107); Glomerular Filtration Rate 97.6 mL/min (90-130); Glucose 104 mg/dL (65-115); Osmolality Calculated 292 mOsm/kg (285-295); Potassium 3.9 mmol/L (3.5-5.1); Sodium 140 mmol/L (136-145)
--- NOTE | 2020-05-28 06:58 | P.PN_ITS ---
Subjective Subjective: Interval history: Postop day #1 status post left lower lobe superior segmentectomy. Pathology pending. Uneventful night. Chest tube output was larger than usual but I suspect this is related to the extensive adhesions throughout the entire right hemithorax. Output recorded is 690 cc, though upon speaking with the nurses and review of the Pleur-evac which has now been changed, I think it is more likely closer to 1100. This would be consistent with his hemoglobin dropped down to 10.3. Chest tube output now though is quite serous. Vital signs are stable though his blood pressure is a bit soft when he is sitting though he is asymptomatic. Heart rate is in the mid 80s. Chest x-ray remains quite clear. He has good use of incentive spirometry. His epidural catheter is working well in his postoperative pain is under good control. Vitals/I&O/Wt Last Vital Signs Temp 98.4 F 05/27/20 22:00 Pulse 73 05/28/20 06:00 Resp 4 L 05/28/20 06:00 BP 98/65 05/28/20 06:00 Pulse Ox 95 05/28/20 06:00 05/27/20 05/27/20 05/28/20 14:59 22:59 06:59 Intake Total 3008.5 / 3008.5 1365 / 4373.5 1300 / 5673.5 Output Total 220 / 220 360 / 580 1295 / 1875 Balance 2788.5 / 2788.5 1005 / 3793.5 5 / 3798.5 Weight last 48 hrs Weight 180 lb Physical Exam Chest: COMMONS NORMALS: normal inspection of the chest and normal palpation of entire chest wall CHEST: Yes Symmetrical chest wall rise Resp: COMMON NORMALS: normal respiratory effort, No retractions, No use of accessory muscles and clear to auscultation bilaterally EFFORT & INSPECTION: Yes able to speak in complete sentences and Yes symmetric chest movement AUSCULTATION: clear to auscultation bilaterally Cardio: COMMON NORMALS: regular rate, regular rhythm, S1 normal heart sound present, No murmurs present (Cardio) and No rub (Cardio) RATE: regular rate RHYTHM: regular rhythm HEART SOUNDS: S1 normal heart sound present PERIPHERAL PULSES: radial pulses present positive bilateral 2+ Extremity: COMMON NORMALS: no clubbing, cyanosis or edema Urinary Catheter Management^: Martinez: Cath Placed During This Visit: yes Reason for Continuing Indwelling Catheter: Accurate Measurement of Urinary Output in Critically Ill Patients Urinary Catheter Date of Insertion: 05/27/20 Urinary Catheter Time of Insertion: 07:40 Data : 05/28/20 04:00 05/28/20 04:00 A&P Assessment and plan (1) Status post thoracotomy: POD #1 status post right thoracotomy and right lower lobe superior segmentectomy. Plan: DC Martinez catheter, CBC/BMP/chest x-ray in a.m., transfer to [facility] when bed available Status: Acute Attestations Medical Necessity Statement*: Status post thoracotomy with resection of lung mass, postop day #1 Time Spent in Patient Care: 16 - 35 minutes Coding Level of Care Code Acute Chief Informatics Officer for Chg Fwd Diagnoses Status post thoracotomy Z98.890
[2020-05-28] MEDS: morphine 4 mg/mL SDV 1 mL 2 MG IVP (07:17)
--- NOTE | 2020-05-28 07:56 | PC.NURSE ---
funez removed verbal order for funez removal from . catheter removed with no problems. Urinal given to patient. instructed on how to use.
[2020-05-28] MEDS: pantoprazole DR 40 mg Tablet PO (08:50)
[2020-05-28] MEDS: multivitamin therapeutic Tablet 1 TAB PO (08:50)
[2020-05-28] MEDS: gabapentin 300 mg Capsule PO ×3 (08:50→23:04)
[2020-05-28] MEDS: fluoxetine 20 mg Capsule PO (08:50)
[2020-05-28] MEDS: thiamine 100 mg Tablet PO (08:50)
[2020-05-28] MEDS: folic acid 1 mg Tablet PO (08:50)
--- NOTE | 2020-05-28 13:08 | PC.NURSE ---
HEAD BOYS GOLF COACH PUMP THIS NURSE RECEIVED PATIENT FROM ICU. RESERVOIR ON HEAD BOYS GOLF COACH PUMP WAS 0. THIS NURSE CONTACTED [facility] PHARMACIST TO RESET HEAD BOYS GOLF COACH PUMP. HÉCTOR SENT NEW BAG OF ROPIVICAINE TO REPROGRAM PUMP. THIS NURSE ALONG WITH FRANCY ANDINO REPROGRAMMED PUMP. PATIENT RECEIVING MEDICATION THROUGH EPIDURAL SUCCESSFULLY AT THIS TIME.
--- NOTE | 2020-05-28 13:57 | ANE.PACU2 ---
Inpatient post-anesthesia follow up: Airway intact: Yes Vital signs: Temperature 98.3 F Pulse Rate 85 Respiratory Rate 18 Blood Pressure 99/64 Pulse Oximetry 96 Oxygen Delivery Me thod Room Air Oxygen Flow Rate 8 Fraction of Inspir ed Oxygen 100 Hydration adequate: Yes Nausea and vomiting: No Pain level: 4 Mental status: Baseline Additional Comments: Epidural site hard to visualize d/t old blood, no active bleeding, but dressing in placed, no swelling, no evidence purulence or tenderness to palpation. Patient's pain well controlled on current pain regimen
[2020-05-28] MEDS: propranolol 20 mg Tablet 10 MG PO (17:04)
--- NOTE | 2020-05-28 17:23 | PM.PN ---
Subjective Subjective: Interval history: Mr. Potts has been transferred to the medical surgical floor. He is up in chair on evening rounds. He has no complaints. Thoracotomy discomfort is under good control. He did develop urinary retention after his Martinez catheter was removed. Bladder scan confirms at least 350 cc. Martinez catheter was replaced without difficulty and with good drainage. Chest tube output shows 400 cc since the Pleur-evac was changed around 1 AM. While the fluid was serous this morning, it is now more sanguinous. Vital signs at bedside revealed blood pressure 100/65 with a heart rate of 85. O2 saturation 93 to 94% on room air. This morning's chest x-ray was quite clear. Vitals/I&O/Wt Last Vital Signs Temp 98.5 F 05/28/20 15:03 Pulse 77 05/28/20 15:03 Resp 16 05/28/20 15:03 BP 90/57 05/28/20 15:03 Pulse Ox 96 05/28/20 15:03 05/28/20 05/28/20 05/28/20 06:59 14:59 22:59 Intake Total 1300 / 5673.5 1427.5 / 1427.5 902.5 / 2330.0 Output Total 1295 / 1875 175 / 175 400 / 575 Balance 5 / 3798.5 1252.5 / 1252.5 502.5 / 1755.0 Weight last 48 hrs Weight 180 lb Physical Exam Chest: COMMONS NORMALS: normal inspection of the chest and normal palpation of entire chest wall CHEST: Yes Symmetrical chest wall rise Resp: COMMON NORMALS: normal respiratory effort, No retractions, No use of accessory muscles and clear to auscultation bilaterally AUSCULTATION: clear to auscultation bilaterally Cardio: COMMON NORMALS: regular rate, No gallops present (Cardio), No murmurs present (Cardio) and No rub (Cardio) RATE: regular rate Extremity: COMMON NORMALS: no clubbing, cyanosis or edema Urinary Catheter Management^: Martinez: Cath Placed During This Visit: yes Reason for Continuing Indwelling Catheter: Accurate Measurement of Urinary Output in Critically Ill Patients Urinary Catheter Date of Insertion: 05/28/20 Urinary Catheter Time of Insertion: 16:15 Data : 05/28/20 04:00 05/28/20 04:00 A&P Assessment and plan (1) Status post thoracotomy: Postop day #1 status post right thoracotomy with segmentectomy of superior segment right lower lobe. Tube output has been a bit more than usual, though he did have extensive adhesions throughout his chest which required sharp dissection. Plan: I will repeat his CBC this evening and have scheduled a CBC/BMP/chest x-ray in the morning. I will plan to discontinue his epidural catheter tomorrow morning and leave the Martniez catheter in until tomorrow afternoon. We will continue to closely observe his chest tube output. Status: Acute Attestations Medical Necessity Statement*: Postop day #1 status post right lower lobe segmentectomy Time Spent in Patient Care: 16 - 35 minutes Coding Level of Care Code Acute Job Analysis Manager for Chg Fwd Diagnoses Status post thoracotomy Z98.890
[2020-05-28 18:25] LABS: Basophils % 0.2 %; Eosinophils # 0.1 10^3/uL (0.0-0.8); Eosinophils % 0.8 %; Hematocrit 33.7 % (42.0-52.0); Hemoglobin 10.6 g/dL (11.7-16.6); Lymphocytes # 1.5 10^3/uL (0.8-4.8); Mean Corpuscular HGB Conc 31.5 g/dL (30.0-36.0); Mean Corpuscular Volume 111.2 fL (80-94); Mean Platelet Volume 9.1 fL (7.4-10.4); Monocytes # 1.3 10^3/uL (0.2-0.9); Monocytes % 13.2 %; Neutrophils # 6.56 10^3/uL (1.8-7.7); Neutrophils % 69.5 %; Nucleated Red Blood Cells % 0 %; Platelet Count 191 10^3/cmm (130-400); Red Blood Count 3.03 10^6/uL (4.1-5.3); Red Cell Distribution Width 12.4 % (12.1-15.1); White Blood Count 9.5 10^3/uL (4.0-10.0)
[2020-05-29] VITALS (10 sets, daily range): BP systolic 101–136; BP diastolic 54–84; PULSE 70–83; RESP 12–20; TEMP 36.8–37.6; O2SAT 92–96
[2020-05-29 03:47] LABS: Basophils % 0.2 %; Eosinophils # 0.1 10^3/uL (0.0-0.8); Eosinophils % 0.8 %; Hematocrit 29.7 % (42.0-52.0); Hemoglobin 9.7 g/dL (11.7-16.6); Lymphocytes # 2.1 10^3/uL (0.8-4.8); Lymphocytes % 25.2 %; Mean Corpuscular HGB Conc 32.7 g/dL (30.0-36.0); Mean Corpuscular Hemoglobin 35.4 pg (28.0-34.0); Mean Corpuscular Volume 108.4 fL (80-94); Mean Platelet Volume 9.1 fL (7.4-10.4); Monocytes # 1.2 10^3/uL (0.2-0.9); Neutrophils # 5.01 10^3/uL (1.8-7.7); Neutrophils % 59.4 %; Nucleated Red Blood Cells % 0 %; Platelet Count 154 10^3/cmm (130-400); Red Blood Count 2.74 10^6/uL (4.1-5.3); Red Cell Distribution Width 12.4 % (12.1-15.1); White Blood Count 8.4 10^3/uL (4.0-10.0)
[2020-05-29 04:19] LABS: Anion Gap 9.6 (5-19); Blood Urea Nitrogen 13 mg/dL (8-23); Calcium 8.3 mg/dL (8.5-10.5); Carbon Dioxide 27 mmol/L (22-29); Chloride 108 mmol/L (98-107); Glomerular Filtration Rate 97.6 mL/min (90-130); Glucose 111 mg/dL (65-115); Osmolality Calculated 293 mOsm/kg (285-295); Potassium 3.6 mmol/L (3.5-5.1); Sodium 141 mmol/L (136-145)
[2020-05-29] MEDS: lactated ringers 1,000 ML 150 ML IV ×3 (04:41→17:08)
--- NOTE | 2020-05-29 05:58 | PM.PN ---
Subjective Subjective: Interval history: Postop day #2 status post right thoracotomy and right lower lobe superior segment segmentectomy. Pathology pending. Chest tube output has decreased though still remains serosanguineous though becoming a bit more serous. Noted hemoglobin dropped to 9.7. Vital signs remained stable. Afebrile. There is now no further postop air leak. Pain has been under good control. This morning's chest x-ray is still pending. Tube output appears to be around 400 cc overnight Vitals/I&O/Wt Last Vital Signs Temp 99.6 F 05/29/20 00:00 Pulse 80 05/29/20 00:00 Resp 20 H 05/29/20 00:00 BP 112/64 05/29/20 00:00 Pulse Ox 92 05/29/20 00:00 05/28/20 05/28/20 05/29/20 14:59 22:59 06:59 Intake Total 1427.5 / 1427.5 1142.5 / 2570.0 1000 / 3570.0 Output Total 175 / 175 400 / 575 Balance 1252.5 / 1252.5 742.5 / 1995.0 1000 / 2995.0 Weight last 48 hrs Weight 180 lb Physical Exam Chest: COMMONS NORMALS: normal inspection of the chest CHEST: Yes Symmetrical chest wall rise Resp: COMMON NORMALS: normal respiratory effort, No retractions, No use of accessory muscles and clear to auscultation bilaterally EFFORT & INSPECTION: Yes able to speak in complete sentences AUSCULTATION: clear to auscultation bilaterally Cardio: COMMON NORMALS: regular rate, regular rhythm, S1 normal heart sound present and No gallops present (Cardio) RATE: regular rate RHYTHM: regular rhythm HEART SOUNDS: S1 normal heart sound present Extremity: COMMON NORMALS: no clubbing, cyanosis or edema Urinary Catheter Management^: Martinez: Cath Placed During This Visit: yes Reason for Continuing Indwelling Catheter: Accurate Measurement of Urinary Output in Critically Ill Patients Urinary Catheter Date of Insertion: 05/28/20 Urinary Catheter Time of Insertion: 16:15 Data : 05/29/20 02:33 05/29/20 02:33 A&P Assessment and plan (1) Status post thoracotomy: POD #2 status post right thoracotomy and segmentectomy. Pathology pending Plan: DC epidural catheter, chest tube to waterseal, CBC/chest x-ray in a.m. Status: Acute Attestations Medical Necessity Statement*: Postop day #2 status post right thoracotomy and segmentectomy Time Spent in Patient Care: less than 15 minutes Coding Level of Care Code Acute Board Certified Arts Therapist for Chg Fwd Diagnoses Status post thoracotomy Z98.890
--- NOTE | 2020-05-29 06:00 | XR_ITS ---
WS: [id number] Portable AP upright chest, 05/29/2020 Clinical Data: POD #2 status post right lower lobe superior segmentectomy Comparison: Portable chest, 05/28/2020 Findings: The right internal jugular venous catheter and right basilar medial chest tube remain in go od position. The subcutaneous emphysema along the right chest wall has diminished. There is patchy at electasis in the right lower lobe. No effusions or masses are seen. The left lung is clear. There are fractures of the right sixth and seventh ribs laterally as a result of the surgery. Monitor leads ar e on the chest wall. XR/XR chest 1V portable [id number] Impression: 1. Development of minimal atelectatic changes in right lower lobe. 2. No change in right internal jugular venous catheter haven't small right ches t tube. 3. Decrease in right lateral subcutaneous emphysema.
[2020-05-29] MEDS: pantoprazole DR 40 mg Tablet PO (08:06)
[2020-05-29] MEDS: thiamine 100 mg Tablet PO (08:06)
[2020-05-29] MEDS: folic acid 1 mg Tablet PO (08:06)
[2020-05-29] MEDS: fluoxetine 20 mg Capsule PO (08:06)
[2020-05-29] MEDS: multivitamin therapeutic Tablet 1 TAB PO (08:06)
[2020-05-29] MEDS: gabapentin 300 mg Capsule PO ×3 (08:06→21:18)
[2020-05-29] MEDS: propranolol 20 mg Tablet 10 MG PO ×2 (08:06→17:08)
[2020-05-29] MEDS: docusate sodium 100 mg Capsule PO (08:11)
[2020-05-29] MEDS: oxyCODONE-APAP 5-325 mg Tablet 1 TAB PO ×4 (08:11→21:18)
[2020-05-29] MEDS: bisacodyl 5 mg Tablet PO (11:22)
--- NOTE | 2020-05-29 13:26 | PC.CHAP ---
Pastoral Care Encounter/Spiritual Assessment Type of Contact [] Declined java security architect visit [] Patient/Family/Request visit [] Outpatient visit [] Follow-up visit [] Physician referral [] Code/Alert [xx] Routine visit [] Staff referral [] Actively dying [] Patient sleeping [] Family support [] [] Out of room [] Palliative care [] [] Receiving care in room [] Pre-surgical visit [] Trauma [] Long length of stay [] ICU visit [] Other: Relational/Emotional Strength [] Patient feels connected with others/family/visitors/staff [] Distress [] Loneliness/isolation [] Abandonment Spirituality of Patient [xx] Person of Samia [] Attends Muslim of their Samia [xx] Believes in Prayer [] Reads Bible or Christianity materials [] There are Spiritual issues to be addressed Cardiovascular Disease Specialist Interventions [xx] Prayer [xx] Active listening [xx] Non-anxious presence [] Spiritual/emotional support [] Crisis/trauma care [] Spiritual counseling [] Bereavement support [] Provided bereavement packet [] Provided Bible/devotional materials [] Provided toy/stuffed animal, coloring book to patient or family member [] Provided Communion [] Anointing/[place] [] Salvation [xx] Completed spiritual assessment [] Other: Impact on Illness or Injury [] Angry [] Fearful [] Anxious [] Often cries [] Exhaustion [] Unable to work [] Unable to attend protestant [] Unable to walk/stand [] Unable to read [] Unable to drive [] Unable to eat/drink [] Unable to sleep [] Unable to be with family [] Patient intubated [] Other: Summary Pt stated he feels better than when he arrived. He has not rec'd full diagnosis yet and does not have all the answers he is wanting. He has more tests scheduled. Time spent with patient 5 minutes
[2020-05-29] MEDS: lactulose oral liq 20 gm/30 mL UDC PO (15:14)
--- NOTE | 2020-05-29 16:50 | PC.RESP ---
Smoking Cessation information sent to patient.
--- NOTE | 2020-05-29 18:23 | PC.NURSE ---
SHIFT SUMMARY PATIENT HAS DONE WELL TODAY. AMBULATED SEVERAL TIMES. 200ML OF SEROUSANGUINOUS OUTPUT. CLEAR LUNG SOUNDS. EPIDURAL PULLED THIS AM. PAIN CONTROLLED WITH ORAL PAIN MEDICATION. GOOD URINE OUTPUT. BP BETTER TODAY. PATIENT STILL UNABLE TO HAVE A BM. THIS NURSE HAS ADMINISTERED COLACE, BISACODYL, AND LACTULOSE. PATIENT IN BATHROOM AT THIS TIME.
[2020-05-30] VITALS (9 sets, daily range): BP systolic 117–131; BP diastolic 69–77; PULSE 65–78; RESP 16–20; TEMP 36.4–37.2; O2SAT 94–97
[2020-05-30] MEDS: lactated ringers 1,000 ML 150 ML IV (01:14)
[2020-05-30] MEDS: oxyCODONE-APAP 5-325 mg Tablet 1 TAB PO ×4 (02:34→18:22)
[2020-05-30 02:53] LABS: Basophils % 0.4 %; Eosinophils # 0.2 10^3/uL (0.0-0.8); Eosinophils % 2.1 %; Hematocrit 31.1 % (42.0-52.0); Hemoglobin 10.1 g/dL (11.7-16.6); Lymphocytes # 2.3 10^3/uL (0.8-4.8); Lymphocytes % 26.5 %; Mean Corpuscular HGB Conc 32.5 g/dL (30.0-36.0); Mean Corpuscular Hemoglobin 35.2 pg (28.0-34.0); Mean Corpuscular Volume 108.4 fL (80-94); Monocytes % 11.7 %; Neutrophils % 58.9 %; Nucleated Red Blood Cells % 0 %; Platelet Count 154 10^3/cmm (130-400); Red Blood Count 2.87 10^6/uL (4.1-5.3); Red Cell Distribution Width 12.1 % (12.1-15.1); White Blood Count 8.5 10^3/uL (4.0-10.0)
--- NOTE | 2020-05-30 06:00 | XR_ITS ---
WS: [id number] Portable AP upright chest, 05/30/2020 Clinical Data: POD #3 status post right thoracotomy Comparison: Portable chest, 05/29/2020 Findings: The right basilar chest tube ending in the region of the superior segment of the right lowe r lobe remains in position. There is patchy atelectasis in the right midlung unchanged. The left lung is normal. The right internal jugular venous catheter ends in the superior vena cava. The heart size is normal. Monitor leads are on the chest wall. XR/XR chest 1V portable [id number] Impression: No change from yesterday's portable chest.
--- NOTE | 2020-05-30 07:49 | PM.PN ---
Subjective Subjective: Interval history: Postop day #3 status post right thoracotomy and segmentectomy of the superior segment of the right lower lobe. Uneventful night. Epidural catheter discontinued. Chest tube output 400 cc past 24 hours. Hemoglobin stable at 10.1. Afebrile. Vital signs stable. Thoracotomy discomfort under good control. Good pulmonary toilet. Pathology pending. Reynaldo with nondisplaced small rib fractures ribs #5 and 6, most probably related to thoracotomy. Small pleural thickening in this region. No effusion. Mild consolidation mid lung field. Mediastinum normal. Chest tube remains in good position. No air leak. Vitals/I&O/Wt Last Vital Signs Temp 98.7 F 05/30/20 04:00 Pulse 68 05/30/20 04:00 Resp 18 05/30/20 06:32 BP 128/75 05/30/20 04:00 Pulse Ox 94 05/30/20 04:00 05/29/20 05/30/20 05/30/20 22:59 06:59 14:59 Intake Total 1105 / 2825 1120 / 3945 Output Total 1300 / 3550 1975 / 5525 Balance -195 / -725 -855 / -1580 Weight last 48 hrs Weight 199 lb Physical Exam Chest: COMMONS NORMALS: normal inspection of the chest and normal palpation of entire chest wall Resp: COMMON NORMALS: No retractions, No use of accessory muscles and clear to auscultation bilaterally EFFORT & INSPECTION: Yes able to speak in complete sentences and Yes symmetric chest movement AUSCULTATION: clear to auscultation bilaterally Cardio: COMMON NORMALS: regular rate, regular rhythm, S1 normal heart sound present and No gallops present (Cardio) RATE: regular rate RHYTHM: regular rhythm HEART SOUNDS: S1 normal heart sound present PERIPHERAL PULSES: radial pulses present positive bilateral 2+ Extremity: COMMON NORMALS: no clubbing, cyanosis or edema Urinary Catheter Management^: Martinez: Cath Placed During This Visit: yes Reason for Continuing Indwelling Catheter: Acute Urinary Retention or Obstruction Urinary Catheter Date of Insertion: 05/28/20 Urinary Catheter Time of Insertion: 16:15 Data : 05/30/20 02:28 05/29/20 02:33 A&P Assessment and plan (1) Status post thoracotomy: Hopefully, pathology will return today. I will assess chest of output through the day and may consider removing chest tube this evening. Will discontinue Martinez catheter as well. Charge home tomorrow. Status: Acute Attestations Medical Necessity Statement*: Status post superior segment segmentectomy right lower lobe Time Spent in Patient Care: less than 15 minutes Coding Level of Care Code Acute Manager Call for Chg Fwd Diagnoses Status post thoracotomy Z98.890
[2020-05-30] MEDS: folic acid 1 mg Tablet PO (08:33)
[2020-05-30] MEDS: gabapentin 300 mg Capsule PO ×3 (08:33→20:22)
[2020-05-30] MEDS: multivitamin therapeutic Tablet 1 TAB PO (08:33)
[2020-05-30] MEDS: docusate sodium 100 mg Capsule PO (08:33)
[2020-05-30] MEDS: thiamine 100 mg Tablet PO (08:33)
[2020-05-30] MEDS: fluoxetine 20 mg Capsule PO (08:33)
[2020-05-30] MEDS: propranolol 20 mg Tablet 10 MG PO ×2 (08:33→18:24)
[2020-05-30] MEDS: pantoprazole DR 40 mg Tablet PO (08:33)
--- NOTE | 2020-05-30 11:08 | ANE.PACU2 ---
Inpatient post-anesthesia follow up: Airway intact: Yes Vital signs: Temperature 97.9 F Pulse Rate 65 Respiratory Rate 18 Blood Pressure 121/72 Pulse Oximetry 97 Oxygen Delivery Me thod Room Air Oxygen Flow Rate 8 Fraction of Inspir ed Oxygen 100 Hydration adequate: Yes Nausea and vomiting: No Pain level: 1 Mental status: Baseline Additional Comments: Epidural removed yesterday. Today skin appears a little red and someone eroded in places of tape. There is some mild erythema of skin, but no tenderness to aggresive palpation of the area. no fever, no purulence. Informed nurse to keep an eye on the area and make sure erythema isn't worsening
[2020-05-30] MEDS: bisacodyl 5 mg Tablet PO (11:18)
[2020-05-30] MEDS: lactulose oral liq 20 gm/30 mL UDC PO (15:45)
--- NOTE | 2020-05-30 16:23 | PM.PN ---
Subjective Subjective: Interval history: Plaints this afternoon. He did have some urinary retention however with a bladder scan revealing 750 cc, therefore Martinez catheter was replaced. I will initiate Flomax 0.4 mg twice daily first dose this evening. Lower chest tube output which is now serous. Chest tube was discontinued. Unfortunately, pathology is still pending. We will reach out to the laboratory tomorrow morning again to see if the results have been finalized. Vitals/I&O/Wt Last Vital Signs Temp 98.5 F 05/30/20 15:32 Pulse 72 05/30/20 15:32 Resp 18 05/30/20 15:32 BP 118/72 05/30/20 15:32 Pulse Ox 96 05/30/20 15:32 05/30/20 05/30/20 05/30/20 06:59 14:59 22:59 Intake Total 1120 / 3945 1720 / 1720 Output Total 1975 / 5525 1100 / 1100 Balance -855 / -1580 620 / 620 Weight last 48 hrs Weight 199 lb Physical Exam Chest: COMMONS NORMALS: normal inspection of the chest (Thoracotomy incision intact. Chest wall stable chest tube removed.) Urinary Catheter Management^: Martinez: Cath Placed During This Visit: yes, but has since been removed by the nurse Reason for Continuing Indwelling Catheter: Decision to DC Catheter Urinary Catheter Date of Insertion: 05/28/20 Urinary Catheter Time of Insertion: 16:15 Date Urinary Catheter Removed: 05/30/20 Time Urinary Catheter Discontinued: 08:19 Data : 05/30/20 02:28 05/29/20 02:33 A&P Assessment and plan (1) Postoperative urinary retention: Initiating tamsulosin 0.4 mg twice daily Status: Acute (2) Status post thoracotomy: Will reach out to pathology to see if final report is available. Possible discharge home tomorrow. Chest x-ray in a.m. Status: Acute Attestations Medical Necessity Statement*: Status post thoracotomy for left lower lobe lung mass Time Spent in Patient Care: 16 - 35 minutes Coding Level of Care Code Acute [place] Operator for Manuel Kaiser Diagnoses Postoperative urinary retention N99.89; R33.8 Status post thoracotomy Z98.890
[2020-05-30] MEDS: tamsulosin 0.4 mg Capsule PO (18:22)
[2020-05-30] MEDS: magnesium hydroxide 30 mL UDC 45 ML PO (18:23)
--- NOTE | 2020-05-30 20:15 | PC.NURSE ---
SHIFT SUMMARY Patient has done well today, his pain has been well controlled with oral pain medications. Funez was discontinued at 0820 this morning, patient had not voided by 1200, bladder scan showed approximately 800 in bladder, pt stated he would try to void, in which he was unsuccessful. Dr. Acuña notified, an order was received to place funez catheter, 1200 total was returned. chest tube was also discontinued today by Dr. Acuña, pt tolerated well. pt has not had a bm today, prn medications were given per order with no results at this time. bedside report was given to myles ANDINO.
[2020-05-31] VITALS (10 sets, daily range): BP systolic 101–128; BP diastolic 64–83; PULSE 65–74; RESP 14–18; TEMP 36.6–37.1; O2SAT 91–96
[2020-05-31] MEDS: oxyCODONE-APAP 5-325 mg Tablet 1 TAB PO ×3 (02:35→13:42)
--- NOTE | 2020-05-31 06:00 | XR_ITS ---
WS: [id number] Portable AP upright chest, 05/31/2020 Clinical Data: chest tube removal s/p segmentectomy Comparison: Portable chest, 05/30/2020 Findings: The right chest tube has been removed. No pneumothorax is seen. There is a small right effu marisabel. There is minimal atelectasis in the right mid lung. The left lung is clear. The right internal jugular venous catheter remains unchanged. The heart is normal. Monitor leads are on the chest wall. XR/XR chest 1V portable [id number] Impression: 1. Removal of right basilar chest tube with no pneumothorax. 2. Minimal right pleural effusion. 3. No change in patchy atelectasis in right midlung.
[2020-05-31] MEDS: pantoprazole DR 40 mg Tablet PO (09:46)
[2020-05-31] MEDS: propranolol 20 mg Tablet 10 MG PO (09:46)
[2020-05-31] MEDS: thiamine 100 mg Tablet PO (09:47)
[2020-05-31] MEDS: tamsulosin 0.4 mg Capsule PO (09:47)
[2020-05-31] MEDS: folic acid 1 mg Tablet PO (09:47)
[2020-05-31] MEDS: fluoxetine 20 mg Capsule PO (09:48)
[2020-05-31] MEDS: gabapentin 300 mg Capsule PO ×2 (09:48→16:28)
[2020-05-31] MEDS: multivitamin therapeutic Tablet 1 TAB PO (09:50)
--- NOTE | 2020-05-31 15:36 | P.DS_ITS ---
Discharge Providers Date of Admission: 05/27/20 09:56 Date of Discharge: May 31, 2020 Attending Provider at Admission: Sharif Acuña MD Attending Provider at Discharge: Sharif Acuña MD Diagnoses at Discharge Discharge Diagnosis (1) Postoperative urinary retention: Status: Acute Permanent problem details: Postop urinary retention now resolved (2) Status post thoracotomy: Status: Acute Permanent problem details: Status post superior segment segmentectomy of right lower lobe Reason for Visit Reason for Visit: Lung Mass Hospital Course Hospital Course Mr. Potts was electively admitted on May 27 for planned surgical resection of a 2.1 cm pleural-based mass in the superior segment of the right lower lobe identified on CT scan of January 03 as part of her surveillance program for known colon carcinoma status post right hemicolectomy in January 2019. He had 2+ nodes at the time of his original surgery and underwent chemotherapy postoperatively. This new right lower lobe lesion noted on surveillance CT scan revealed increased activity on PET scan, therefore resection was recommended. On May 27, he underwent right thoracotomy and segmentectomy of the superior segment of the right lower lobe. Dense adhesions were notified throughout the entire right hemithorax. Pathology has returned adenocarcinoma with clear margins. Further immunohistochemical stain is pending to assist in determining origin as to whether this represents a pulmonary primary or perhaps a colonic metastasis. Early postoperatively, he maintained a modest air leak for 2 days which then dissipated spontaneously. Chest tube output slowly decreased over days 3 and 4 and chest tube was discontinued. Incision line clean and dry. Chest wall is stable. O2 saturation on room air is 94 to 96%. He did have some urinary retention postoperatively requiring reinsertion of a Martinez catheter. He was placed on tamsulosin 0.4 mg twice daily and subsequently his catheter was removed and he is voiding without difficulties. He will be discharged to home today with home health services. He will follow- up in our clinic on June 17. Physical Exam Chest: COMMONS NORMALS: normal inspection of the chest (Incision line clean and dry. Chest wall stable) and normal palpation of entire chest wall Resp: COMMON NORMALS: normal respiratory effort, No use of accessory muscles and clear to auscultation bilaterally EFFORT & INSPECTION: Yes able to speak in complete sentences and Yes symmetric chest movement AUSCULTATION: clear to auscultation bilaterally Cardio: COMMON NORMALS: regular rate, regular rhythm, S1 normal heart sound present, No gallops present (Cardio) and No murmurs present (Cardio) RATE: regular rate RHYTHM: regular rhythm HEART SOUNDS: S1 normal heart sound present Extremity: COMMON NORMALS: no clubbing, cyanosis or edema Urinary Catheter Management^: Martinez: Cath Placed During This Visit: yes, but has since been removed by the nurse Reason for Continuing Indwelling Catheter: Decision to DC Catheter Urinary Catheter Date of Insertion: 05/28/20 Urinary Catheter Time of Insertion: 16:15 Date Urinary Catheter Removed: 05/31/20 Time Urinary Catheter Discontinued: 11:00 Discharge Data Data Completed and Pending: Completed Studies During Hospitalization Category Date Time Status CXRP [XR chest 1V portable [id number]] R outine Exams 05/27/20 06:09 Completed XR chest 1V deborah ble [id number] Routine Exams 05/27/20 11:01 Completed XR chest 1V deborah ble [id number] Routine Exams 05/28/20 06:00 Completed XR chest 1V deborah ble [id number] Routine Exams 05/29/20 06:00 Completed XR chest 1V deborah ble [id number] Routine Exams 05/30/20 06:00 Completed XR chest 1V deborah ble [id number] Routine Exams 05/31/20 06:00 Completed Pending at discharge Category Date Time Status Pathology: Surgic al [PTH] Routine Pth 05/27/20 10:01 Received Labs from last 24 hours 05/22/20 11:40 Crossmatch See Detail Vitals: Last Vital Signs Temp 98.3 F 05/31/20 12:00 Pulse 72 05/31/20 12:00 Resp 18 05/31/20 13:42 BP 109/64 05/31/20 12:00 Pulse Ox 96 05/31/20 12:00 Discharge Plan Discharge Patient Disposition: Home Health Service Condition: Stable Prescriptions: New oxycodone-acetaminophen 5-325 mg Tablet 1 tab PO Q6H PRN (Reason: Moderate Pain) Qty: 25 RF: 0 tamsulosin 0.4 mg Capsule 0.4 mg PO BID Qty: 60 RF: 5 Continued albuterol sulfate 90 mcg/actuation HFA aerosol inhaler 2 puff INHALATION Q6H PRN (Reason: Shortness Of Breath) RF: 0 alprazolam 0.5 mg tablet 0.5 mg PO TID PRN (Reason: Anxiety) RF: 0 fluoxetine 20 mg capsule 20 mg PO DAILY RF: 0 gabapentin 300 mg capsule 300 mg PO TID RF: 0 propranolol 10 mg tablet 10 mg PO BID RF: 0 sildenafil 100 mg tablet 100 mg PO DAILY PRN (Reason: Erectile Dysfunction) RF: 0 lisinopril 20 mg tablet 10 mg PO DAILY RF: 0 Discharge Orders: Discharge Order (Routine); Ordered 05/31/20 Ordered By: Sharif Acuña Referrals: [facility] [Outside] (Your information has been sent to [facility] to see if they can provide home health services for you, however this will have to be approved by the [facility] first. The home health order has also been sent to the [facility] in [place] (to the [facility] team). If you have any questions regarding the status of this, please call either the [facility] at [phone] and speak with your primary care team, or call [facility] at the phone number listed above.) Sharif Acuña MD [Physician] - 06/17/20 Discharge Diet: Usual diet Discharge Activity: Limit activity as instructed Activity Restrictions/Additional Instructions: Use incentive spirometer frequently No heavy lifting x1 month May begin showers this weekend. No swimming or tub baths x2 weeks Report any increasing pain, shortness of breath, redness of the incision, swelling of the incision, fever, chills, or drainage. Discharge Attestations Time Spent in Discharge Care*: less than 30 min Specific Discharge Activities: educating patient, discussing with pcp/other providers, discussing with keycase assembler/social workers/dc planners, documenting/other paperwork and evaluating patient/reviewing data Time Spent in Smoking Cessation: 3 to 10 minutes Status at Discharge: Cognitive status at discharge: cognitively intact , Behavioral status at discharge: cooperative , Functional status at discharge: independent ambulation Overall status at discharge: patient is progressing back to baseline Quality Metrics Clinical Quality Measures During this hospital stay, did patient experience: None Coding Level of Care Code Acute Clinical Lab Scientist for Manuel Fwd Diagnoses Postoperative urinary retention N99.89; R33.8 Status post thoracotomy Z98.890
[2020-08-02 13:55] LABS: PD-L1 (Clone 22C3) by IHC BBPL See Report
== END 2020-05-31 17:48 | disposition home or self-care (01) | DRG 164 ==
LOC: ICU 09:57 → MEDSURG 05-28 12:23
PROVIDERS: Internal Medicine Hematology & Oncology; Admitting Provider Thoracic Surgery (Cardiothoracic Vascular Surgery); Visit Provider Thoracic Surgery (Cardiothoracic Vascular Surgery)
PROC: 0BT60ZZ Resection of Right Lower Lobe Bronchus, Open Approach (ICD-10-PCS; CPT 32480; principal; 2020-05-27 07:00)
DX: D38.1 Neoplasm of uncertain behavior of trachea, bronchus and lung (principal); C18.3 Malignant neoplasm of hepatic flexure; C77.2 Secondary and unspecified malignant neoplasm of intra-abdominal lymph nodes; J94.8 Other specified pleural conditions; Z90.49 Acquired absence of other specified parts of digestive tract; F17.210 Nicotine dependence, cigarettes, uncomplicated; F10.20 Alcohol dependence, uncomplicated; F41.9 Anxiety disorder, unspecified; J44.9 Chronic obstructive pulmonary disease, unspecified; E78.5 Hyperlipidemia, unspecified; I10 Essential (primary) hypertension; N99.89 Other postprocedural complications and disorders of genitourinary system; Z79.51 Long term (current) use of inhaled steroids
CPT/HCPCS: 01996; 12345; 36415; 51702; 51798; 71045; 80048; 80053; 81001; 85025; 85610; 86850; 86900; 86920; 88309; 88342; 96375; 97110; 97116; 97161; 97530; J0690; J1100; J1885; J2250; J2270; J2370; J2405; J2704; J2795; J3010; J3490; J7030; J7040

== ENCOUNTER 2020-07-26 09:49 | Outpatient (CLI) | payer OTHER, SELFPAY ==
--- NOTE | 2020-07-26 11:59 | ONC FU_ITS ---
Dr. Barbour follow up note Patient: Rich Potts Unit #: [id number]: [id number] Dicatated By: Andrés Barbour M.D.Date of Visit:Jul 26, 2020 Onc Med Follow-up/Prog Note History of Present Illness: Mr. Potts is a 65-year-old gentleman who underwent surveillance colonoscopy. It revealed a mass in the hepatic flexure. A biopsy was obtained which showed adenocarcinoma arising in the background of tubular adenoma. There was another friable polyp seen which was completely removed, but did show tubular adenoma with high-grade dysplasia. CT scan of abdomen reported no direct evidence of metastatic disease. Mr Potts underwent ascending colon and terminal ileum, right hemicolectomy on 01/24/2019. The pathology reported low-grade, well to moderately differentiated infiltrating adenocarcinoma with limited penetration through muscularis propria into serosal connective tissue. Tumor arising immediately adjacent to tubulovillous adenoma with severe dysplasia T3 Smaller, separate invasive carcinoma focus measuring 1 x 1 cm. Surgical margins clear but as per discussion with Dr. 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 2 nodes were positive( microscopic clusters/ )14 node examined N1b MSI/MMR intact recommended treatment with 12 cycles of FOLFOX. He began his first cycle on 04/04/19. His dose has been modified to hold the 5 FU bolus. Mr Potts has completed 11 cycles and has had complications due to the chemotherapy of neutropenia/thrombocytopenia. His cycle 4 was held an additional week due to the neutropenia. He was due for chemo and his ANC was 900. He was delayed a week and recovered to 1800. His day 8 ANC then was 1600. His platelet count was 72,000 at that time as well. Neulasta was ordered and it began with cycle Cycle 6. He has had no further neutropenia since that addition. He has had mildly fluctuating AST/ALT.total bilirubin but has been asymptomatic. his adjuvant chemotherapy was concluded after 11 cycles of FOLFOX as patient continued to have mildly fluctuated ALT AST and bilirubin etiology was unclear and abdominal sonogram shows no abnormality in the liver and biliary drainage system. Abdominal sonogram was done on 11/16/2019 showed no abnormality seen in the liver or bile duct drainage system. Hepatitis profile checked on 11/01/2019 shows nonreactive with hepatitis B surface antibody 3.5, and consistent with immunity, hepatitis C is nonreactive Serum protein electrophoresis confirmed restricted band migrating in gamma region, immunofixation confirmed IgM kappa monoclonal band present. And follow-up CMP shows persistent mildly elevated but stable bilirubin and AST/ALT. CT scan of chest abdomen pelvis done on January 04, 2020 showed in the right lung base there is a pleural-based mass smiling 2.1 cm and this mass is adherent to medial pleura. No destructive changes surrounding this area. Mass is seen extending off the posterior wall of right lower lobe lung. CT scan of the abdomen shows normal appearance of the liver, no filling defects seen adrenal gland normal gallbladder normal no stones spleen is normal. And CT scan of abdomen pelvis done on November 2018 at [facility] showed there was no acute process referable to visualized lower thorax and liver gallbladder biliary tree are normal. The spleen contain an occasional calcified granuloma otherwise unremarkable. 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 Background decrease trilineage hematopoiesis detected. Adequate iron. Bone marrow flow cytometry confirmed occasional B-cell noted with a slight predominance of kappa light chain expression no overtly aberrant myeloid or lymphoid population detected Serum protein electrophoresis confirmed restricted band migrating in gamma region, immunofixation confirmed IgM kappa monoclonal band present. 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 CT PET scan done on January 27, 2020 showed there is a 2.3 x 1.5 cm with SUV of 8.8 right lower lobe nodule abutting pleura consistent with metastatic disease a roughly 1.8 cm subcarinal node has SUV of 5. A groundglass opacity in the lateral left lower lobe is FDG negative. A lytic lesion at C4 with SUV of 8.3 consistent with osseous metastatic disease Patient was referred to Dr. Acuña for evaluation of right lower lobe lung mass to rule out metastatic disease versus second primary versus lymphoma versus inflammation patient saw Dr. Acuña on February 22, [address] Acuña recommended resection of right lower lobe lung nodule after evaluating PFTs.Patient underwent right lower lobe lung segmentectomy on May 27, 2020 final pathology report came back moderately differentiated primary invasive adenocarcinoma, 3.5 cm sized tumor with clear surgical margin no lymphovascular invasion seen no visceral pleural invasion and no lymph node was submitted for exam e.g. pT2a, pNX immunohistochemistry, negative for CK20 but positive for TTF-1, Napsin, CK7 MRI scan of the neck done on March 14, 2020 to evaluate C4 vertebral body abnormality seen on CT PET scan showed marrow replacing lesion involving C4 vertebral body with more focal lytic lesion centrally as seen on recent CT PET scan small amount of edema in this area with axial imaging metastatic lesion measuring 1.1 x 1.6 cm abuts the posterior cortex this extends slightly into left C4 vertebral body about the left transverse foramen. No extension into posterior elements. No significant epidural disease although moderate central canal stenosis. No other FDG avid lesions on the prior CT PET scan, multilevel moderate to severe bony foraminal narrowing observed worse at bilateral C3-C4 and left C4-C5 and right C5-C6 Came for follow-up, patient was supposed to come back after MRI scan of the neck for evaluation and discussion but due to transportation problem he did not come and did not follow with Dr. Acuña for right lower lobe lung nodule evaluation either until recently when underwent right lower lobe lung mass resection. As per patient is still has neck pain, is a shifting type sometimes on the left and others to the right but no numbness in the upper extremities no weakness or numbness neck below. Denies any trauma to his back or neck and also complaining of mid back pain, patient was supposed to be using c-collar but he is noncompliant with that too. Patient said because of transportation problem and his caregiver was also sick, that is why, he could not return to clinic but his pain was controlled with ibuprofen and Tylenol but now needs something stronger. Denies any fever chills, denies any nausea or vomiting denies any diarrhea or constipation denies any hemoptysis or hematemesis denies any headaches blurred vision or double vision denies dysphagia. Medications: Albuterol Sulfate 2 puff(s) (of 108 (90 base) mcg/act) Aerosol Powder, Breath Activated Inhalation q 4 hours PRN, ALPRAZolam 1 Tablet (of 0.5 mg) Oral t.i.d. PRN, Atorvastatin Calcium 1 Tablet (of 40 mg) Oral daily, FLUoxetine HCl 1 Tablet (of 40 mg) Capsule Oral daily, Gabapentin 1 Capsule (of 300 mg) Oral t.i.d., Lisinopril 1 Tablet (of 20 mg) Oral daily, Propranolol HCl 1 Tablet (of 10 mg) Oral b.i.d., Sildenafil Citrate 1 Tablet (of 100 mg) Oral PRN Allergies: No Known Allergies. Review of Systems: Constitutional - Appetite has been poor and weight is stable. No fever, chills, hot flashes, or night sweats. Energy level is fair, ENMT - No sinus congestion/drainage. No mouth sores. No sore throat or difficulty swallowing, Hematologic/Lymphatic - No abnormal bruising or bleeding, Respiratory - No shortness of breath. No cough. No pleuritic pain or hemoptysis, Cardiovascular - No angina pain. No palpitations, Gastrointestinal - Positive for nausea, no vomiting. No heartburn or acid reflux. Positive for diarrhea, no constipation. No blood in the stool or black stools, Genitourinary (M) - No dysuria or hematuria. No urinary frequency. No urgency or incontinence, Musculoskeletal - No joint or bone pain, Neurologic - No headache or dizziness. Positive for tremors, Psychiatric - Positive for anxiety and insomnia. Vital Signs: Performed on Jul 26, 2020 10:12 Height - 76.50 in Weight - 183.6 lbs (LOW) BSA - 2.15 sq.m BMI - 22.06 Temperature - 98.1 F (LOW) Pulse - 78 /min Respiration - 16 /min BP - 126/78 mm(hg) O2 Sat - 97 % Pain - 0 Performance Status: 2 - Ambulatory/capable of all self-care, unable to perform any work activities. Up and about more than 50% of waking hours. (ECOG) Physical Examination: ENMT - No mouth sores, no thrush, no joint, Respiratory - Lungs are clear to auscultation, Cardiovascular - Regular rate and rhythm of heart, Abdomen - Soft, bowel sounds present, Extremities - No visible edema. Lab/Imaging: Test performed on Mar 04, 2020 10:02 Sodium 140 mmol/L Potassium 3.1 mmol/L Chloride 103 mmol/L CO2 23 mmol/L Anion Gap 17.1 BUN 11 mg/dL Creatinine 0.9 mg/dL Cr Clearance (Est) 99.7200 mL/min eGFR 85.2 mL/min Glucose 121 mg/dL Calcium 9.0 mg/dL Osmolality - Calculated 287 mOsm/kg Protein, Total 7.8 g/dL Albumin 3.8 g/dL Globulin 4.0 g/dL Bilirubin, Total 0.5 mg/dL ALT (SGPT) 42 U/L AST (SGOT) 39 U/L Alkaline Phosphatase 101 IU/L WBC 6.0 10 3/uL RBC 3.80 10 6/uL HGB 13.6 g/dL HCT 41.3 % MCV 108.7 fL MCH 35.8 pg MCHC 32.9 g/dL RDW 12.2 % Platelet Count 199 10 3/cmm MPV 9.0 fL Neutrophils 2.75 10 3/uL Lymphocytes 2.3 10 3/uL Monocytes 0.7 10 3/uL Eosinophils 0.1 10 3/uL Basophils 0.0 10 3/uL Neutrophil % 46.2 % Lymphocyte % 38.8 % Monocyte % 12.1 % Eosinophil % 2.2 % Basophils % 0.5 % NRBC % 0 % Impression: Moderately differentiated primary invasive adenocarcinoma of right lower lobe lung status post segmentectomy done on May 27, 2020 showed tumor size 3.5 cm, single focus, clear surgical margins, no visceral pleural involvement, no lymphovascular involvement, no lymph nodes submitted or found, immunohistochemistry positive for TTF-1, p63, Napsin, CK Reji, CK 8/18, CK7 and CEA but negative for CK20 pT2a, NX CT PET scan done on January 27, 2020 showed 2.3 x 1.5 cm SUV 8.8 right lower lobe nodule and roughly 1.8 cm subcarinal lymph node with SUV of 5 and a lytic lesion at C4 with SUV of 8.3 Infiltrating adenocarcinoma, low-grade, well to moderately differentiated status post ascending colon and terminal ileum, right hemicolectomy done on 01/24/2019 Final pathology report showed limited penetration through muscularis propria into serosal connective tissue, smaller, separate invasive carcinoma focus measuring 1 x 1 cm Clear surgical margin but DCIS at staple line. pT3 2 out of 14 lymph nodes were examined showed microscopic clusters pN1b, MSI/MMR intact CT scan of abdomen pelvis done on 11/16/2018 showed no evidence of metastatic disease. Stage IIIB Mr Potts was offered treatment with FOLFOX. He began his first cycle on 04/04/2019. He has tolerated it well overall with the exception of thrombocytopenia and chemo induced neutropenia. He has responded well to Neulasta for the neutropenia. patient completed 11/12 cycles ofmodified dose FOLFOX on 10/10/2019, chemotherapy was concluded after 11 doses because of persistent abnormal AST/ALT and mildly elevated bilirubin around 1.3. Hepatitis profile was ordered which was nonreactive. His CMP also showed elevated total protein, for which serum protein electrophoresis was done on 11/01/2019 which confirmed restrictive band migrating in the gamma region, immunofixation confirmed IgM kappa monoclonal band. Plan: Discussed with patient regarding his right lung nodule resection pathology which confirmed adenocarcinoma but no lymph node was submitted although her PET scan showed 1.8 cm subcarinal lymph node and C4 lytic lesion and MRI scan of the neck done in February 2020 did confirm it but patient due to transportation problem and caregiver sickness did not come for follow-up and even delayed right lung nodule evaluation till recently. Case was discussed with pathology today and resected right lower lobe lung nodule consistent with lung primary, now concern is subcarinal lymph node and C-spine lesion, patient was advised to see neurosurgery or repeating his MRI scan of the spine to see if there is any change, patient prefer MRI scan of the spine and if there is a worsening of C-spine lesion then he would see neurosurgeon as he is reluctant to go to [place] because of transportation issues. Patient was advised the risk involved with C-spine vertebra, risk of paralysis, patient do understand and he was advised to use c-collar and if there is a worsening of pain or any neurological symptoms he need to go to hospital immediately for evaluation and he was also advised to avoid any kind of trauma or sudden neck movements. We will give him prescription for Percocet 5/325, he will take 1 to 2 tablets every 4-6 hour as needed, MRI scan of neck and thoracic lumbar spine was recommended to get on Wednesday but patient said he cannot get his MRI scan done till as his caregiver has prior appointment. So we will schedule him for MRI scan of C-spine and lumbar thoracic spine on , August 01, 2019 and will see him same day to save him trip. Pathology will check EGFR/PDL-1 status and also concern about subcarinal lymph node although his right lower lobe mass resection shows no lymphovascular involvement so concern is whether subcarinal lymph node is metastatic disease from the lung lesion or from colon or lymphoproliferative disorder and also concerned about C-spine lesion, we will review his scheduled MRI scan of the spine and then plan accordingly. If there is no change in C-spine lesion, then will discuss with neurosurgery regarding further management and also repeat CT PET or CT scan of chest scan to assess subcarinal lymph node status if there is a progression, consider biopsy. Signed By: Andrés Barbour M.D. <<Signature on File>>
== END 2020-07-26 09:50 | disposition home or self-care (01) ==
LOC: ONCMED 09:51
PROVIDERS: PCP Internal Medicine Medical Oncology; Visit Provider Internal Medicine Hematology & Oncology
DX: C34.31 Malignant neoplasm of lower lobe, right bronchus or lung (principal); C18.2 Malignant neoplasm of ascending colon; M89.9 Disorder of bone, unspecified; M54.2 Cervicalgia; Z79.891 Long term (current) use of opiate analgesic; Z79.899 Other long term (current) drug therapy; Z90.2 Acquired absence of lung [part of]; Z90.49 Acquired absence of other specified parts of digestive tract
CPT/HCPCS: 99215

== ENCOUNTER 2020-08-01 10:21 | Outpatient (CLI) | payer OTHER, SELFPAY ==
--- NOTE | 2020-08-01 10:22 | MR_ITS ---
WS: [id number] MRI CERVICAL SPINE NONCONTRAST AND CONTRAST TECHNIQUE: Sagittal T1, T2 and STIR imaging. Axial T2, gradient, and fiesta imaging. Post gadolinium imaging was obtained. CLINICAL INFORMATION: HX OF CANCER;NECK PAIN;RT COLON CA COMPARISON: MRI March 14, 2020 FINDINGS: Straightening of the normal cervical lordosis. Interval biconcave pathologic compression at C4 verteb ral body is new since the prior examination. Loss of approximately 60% vertebral body height centrall y. Minimal retropulsion of the posterior cortex with moderate to severe central canal stenosis. Enhan cing ventral epidural disease extending into the neural foramen bilaterally with moderate to severe b ilateral foraminal narrowing. Trace enhancing dorsal epidural disease. Impingement with mild flatteni ng of the cervical cord. Cord signal remains normal. Central canal stenosis increased compared to pre vious. Enhancing paravertebral soft tissue at this level. Partially visualized enhancing INTRACRANIAL metastatic lesions involving the left cerebellum measurin g 2.8 x 2.1 cm and left inferior frontal lobe measuring 9 mm. Moderate surrounding edema visualized i n the left cerebellum. Recommend further evaluation with MRI of the head without and with gadolinium enhancement. No other significant interval changes. C2-C3: Mild facet arthropathy. Mild right greater than left bony foraminal narrowing. Mild facet arth ropathy. C3-C4: Disc osteophyte complex with endplate ridging. Moderate central canal stenosis. Moder ate bilateral bony foraminal narrowing with mild to moderate facet arthropathy. C4-C5 described above C5-C6: Disc osteophyte complex with endplate ridging eccentric to the right. Severe right foraminal n arrowing. Mild left foraminal narrowing. Moderate facet arthropathy. C6-C7: Disc osteophytic complex with endplate ridging. Severe left and moderate right bony foraminal narrowing. Mild facet arthropathy. Mild central canal stenosis. C7-T1: Disc osteophytic ridging. Moderate bilateral bony foraminal narrowing. Spinal canal is patent. MR/MR cervical spine wo/w [id number] IMPRESSION: 1. New interval pathologic compression at C4 vertebral body with biconcave com pression. Loss of approximately 60% vertebral body height centrally. 2. Mild retropulsion of the posterior cortex C4 with moderate to severe centra l canal stenosis. Mild impingement on the cervical cord. Cord signal remains no rmal. Associated enhancing ventral epidural disease extending into the neural f oramen. This is new from previous. 3. Partially visualized enhancing intracranial metastatic lesions in the left cerebellum and left inferior frontal lobe partially visualized. Cerebellar lesi on measures 2.8 x 2.1 CM. Recommend further evaluation MRI head without and wit h gadolinium enhancement. 4. No other significant changes from previous. Notified Dr. Barbour's nurse Fara RN at 08/01/2020 12:29 PM.
[2020-08-01 14:09] LABS: Basophils % 0.5 %; Eosinophils # 0.2 10^3/uL (0.0-0.8); Eosinophils % 1.9 %; Hematocrit 41.6 % (42.0-52.0); Hemoglobin 13.9 g/dL (11.7-16.6); Lymphocytes # 2.6 10^3/uL (0.8-4.8); Lymphocytes % 33.5 %; Mean Corpuscular HGB Conc 33.4 g/dL (30.0-36.0); Mean Corpuscular Hemoglobin 33.9 pg (28.0-34.0); Mean Corpuscular Volume 101.5 fL (80-94); Mean Platelet Volume 8.7 fL (7.4-10.4); Monocytes # 1.3 10^3/uL (0.2-0.9); Monocytes % 16.2 %; Neutrophils # 3.72 10^3/uL (1.8-7.7); Neutrophils % 47.6 %; Nucleated Red Blood Cells % 0 %; Platelet Count 285 10^3/cmm (130-400); White Blood Count 7.8 10^3/uL (4.0-10.0)
[2020-08-01 14:56] LABS: Alanine Aminotransferase 58 U/L (0-41); Alkaline Phosphatase 186 IU/L (40-130); Anion Gap 12.9 (5-19); Aspartate Amino Transferase 36 U/L (0-40); Blood Urea Nitrogen 12 mg/dL (8-23); Calcium 9.4 mg/dL (8.5-10.5); Carbon Dioxide 29 mmol/L (22-29); Chloride 98 mmol/L (98-107); Glomerular Filtration Rate 113.9 mL/min (90-130); Glucose 81 mg/dL (65-115); Osmolality Calculated 281 mOsm/kg (285-295); Potassium 3.9 mmol/L (3.5-5.1); Sodium 136 mmol/L (136-145); Total Bilirubin 1.1 mg/dL (0.15-1.2)
--- NOTE | 2020-08-01 17:29 | ONC FU_ITS ---
Dr. Barbour follow up note Patient: Rich Potts Unit #: [id number]: [id number] Dicatated By: Andrés Barbour M.D.Date of Visit:Aug 01, 2020 Onc Med Follow-up/Prog Note History of Present Illness: Mr. Potts is a 65-year-old gentleman who underwent surveillance colonoscopy. It revealed a mass in the hepatic flexure. A biopsy was obtained which showed adenocarcinoma arising in the background of tubular adenoma. There was another friable polyp seen which was completely removed, but did show tubular adenoma with high-grade dysplasia. CT scan of abdomen reported no direct evidence of metastatic disease. Mr Potts underwent ascending colon and terminal ileum, right hemicolectomy on 01/24/2019. The pathology reported low-grade, well to moderately differentiated infiltrating adenocarcinoma with limited penetration through muscularis propria into serosal connective tissue. Tumor arising immediately adjacent to tubulovillous adenoma with severe dysplasia T3 Smaller, separate invasive carcinoma focus measuring 1 x 1 cm. Surgical margins clear but as per discussion with Dr. 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 2 nodes were positive( microscopic clusters/ )14 node examined N1b MSI/MMR intact recommended treatment with 12 cycles of FOLFOX. He began his first cycle on 04/04/19. His dose has been modified to hold the 5 FU bolus. Mr Potts has completed 11 cycles and has had complications due to the chemotherapy of neutropenia/thrombocytopenia. His cycle 4 was held an additional week due to the neutropenia. He was due for chemo and his ANC was 900. He was delayed a week and recovered to 1800. His day 8 ANC then was 1600. His platelet count was 72,000 at that time as well. Neulasta was ordered and it began with cycle Cycle 6. He has had no further neutropenia since that addition. He has had mildly fluctuating AST/ALT.total bilirubin but has been asymptomatic. his adjuvant chemotherapy was concluded after 11 cycles of FOLFOX as patient continued to have mildly fluctuated ALT AST and bilirubin etiology was unclear and abdominal sonogram shows no abnormality in the liver and biliary drainage system. Abdominal sonogram was done on 11/16/2019 showed no abnormality seen in the liver or bile duct drainage system. Hepatitis profile checked on 11/01/2019 shows nonreactive with hepatitis B surface antibody 3.5, and consistent with immunity, hepatitis C is nonreactive Serum protein electrophoresis confirmed restricted band migrating in gamma region, immunofixation confirmed IgM kappa monoclonal band present. And follow-up CMP shows persistent mildly elevated but stable bilirubin and AST/ALT. CT scan of chest abdomen pelvis done on January 04, 2020 showed in the right lung base there is a pleural-based mass smiling 2.1 cm and this mass is adherent to medial pleura. No destructive changes surrounding this area. Mass is seen extending off the posterior wall of right lower lobe lung. CT scan of the abdomen shows normal appearance of the liver, no filling defects seen adrenal gland normal gallbladder normal no stones spleen is normal. And CT scan of abdomen pelvis done on November 2018 at [facility] showed there was no acute process referable to visualized lower thorax and liver gallbladder biliary tree are normal. The spleen contain an occasional calcified granuloma otherwise unremarkable. 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 Background decrease trilineage hematopoiesis detected. Adequate iron. Bone marrow flow cytometry confirmed occasional B-cell noted with a slight predominance of kappa light chain expression no overtly aberrant myeloid or lymphoid population detected Serum protein electrophoresis confirmed restricted band migrating in gamma region, immunofixation confirmed IgM kappa monoclonal band present. 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 CT PET scan done on January 27, 2020 showed there is a 2.3 x 1.5 cm with SUV of 8.8 right lower lobe nodule abutting pleura consistent with metastatic disease a roughly 1.8 cm subcarinal node has SUV of 5. A groundglass opacity in the lateral left lower lobe is FDG negative. A lytic lesion at C4 with SUV of 8.3 consistent with osseous metastatic disease Patient was referred to Dr. Acuña for evaluation of right lower lobe lung mass to rule out metastatic disease versus second primary versus lymphoma versus inflammation patient saw Dr. Acuña on February 22, [address] Acuña recommended resection of right lower lobe lung nodule after evaluating PFTs.Patient underwent right lower lobe lung segmentectomy on May 27, 2020 final pathology report came back moderately differentiated primary invasive adenocarcinoma, 3.5 cm sized tumor with clear surgical margin no lymphovascular invasion seen no visceral pleural invasion and no lymph node was submitted for exam e.g. pT2a, pNX immunohistochemistry, negative for CK20 but positive for TTF-1, Napsin, CK7 MRI scan of the neck done on March 14, 2020 to evaluate C4 vertebral body abnormality seen on CT PET scan showed marrow replacing lesion involving C4 vertebral body with more focal lytic lesion centrally as seen on recent CT PET scan small amount of edema in this area with axial imaging metastatic lesion measuring 1.1 x 1.6 cm abuts the posterior cortex this extends slightly into left C4 vertebral body about the left transverse foramen. No extension into posterior elements. No significant epidural disease although moderate central canal stenosis. No other FDG avid lesions on the prior CT PET scan, multilevel moderate to severe bony foraminal narrowing observed worse at bilateral C3-C4 and left C4-C5 and right C5-C6 Repeat MRI scan of the C-spine done on August 01, 2020 shows biconcave pathological compression at C4 vertebral body with loss of approximately 60% vertebral body height centrally minimal retropulsion of posterior cortex with moderate to severe central canal stenosis. Enhancing ventral epidural disease extending into neuroforamen bilaterally with moderate to severe bilateral foraminal narrowing. Cord signal remains normal. Partially visualized enhancing intracranial metastatic lesions involving left cerebellum measuring 2.8 x 2.1 cm and left inferior frontal lobe measuring 9 mm. Moderate surrounding edema visualized in the left cerebellum Came for follow-up, denies any specific complaint except shifting pain in bilateral shoulders but no numbness or weakness in the upper extremities, no pain radiation to the spine or lower extremities complaining of pain in the neck in certain neck positions. No blurred vision or double vision, no focal weakness, no seizure-like activity, no fever chills, no nausea or vomiting, no diarrhea or constipation, pain is under control with current pain medication Medications: Albuterol Sulfate 2 puff(s) (of 108 (90 base) mcg/act) Aerosol Powder, Breath Activated Inhalation q 4 hours PRN, ALPRAZolam 1 Tablet (of 0.5 mg) Oral t.i.d. PRN, Atorvastatin Calcium 1 Tablet (of 40 mg) Oral daily, FLUoxetine HCl 1 Tablet (of 40 mg) Capsule Oral daily, Gabapentin 1 Capsule (of 300 mg) Oral t.i.d., Lisinopril 1 Tablet (of 20 mg) Oral daily, Propranolol HCl 1 Tablet (of 10 mg) Oral b.i.d., Sildenafil Citrate 1 Tablet (of 100 mg) Oral PRN Allergies: No Known Allergies. Review of Systems: Review of Systems is not available for this patient. Vital Signs: Performed on Aug 01, 2020 14:37 Height - 76.50 in Weight - 182.2 lbs (LOW) BSA - 2.14 sq.m BMI - 21.89 Temperature - 97.8 F (LOW) Pulse - 79 /min Respiration - 18 /min BP - 116/80 mm(hg) O2 Sat - 98 % Pain - 4 Performance Status: 1 - No physically strenuous activity, but ambulatory and able to carry out light or sedentary work (e.g. office work, light house work). (ECOG) Physical Examination: ENMT - No mouth sores, no thrush, no jaundice, Respiratory - Lungs are clear to auscultation, Cardiovascular - Regular rate and rhythm of heart, Abdomen - Soft, bowel sounds present, Extremities - No visible edema, no focal weakness. Lab/Imaging: Test performed on Mar 04, 2020 10:02 Sodium 140 mmol/L Potassium 3.1 mmol/L Chloride 103 mmol/L CO2 23 mmol/L Anion Gap 17.1 BUN 11 mg/dL Creatinine 0.9 mg/dL Cr Clearance (Est) 99.7200 mL/min eGFR 85.2 mL/min Glucose 121 mg/dL Calcium 9.0 mg/dL Osmolality - Calculated 287 mOsm/kg Protein, Total 7.8 g/dL Albumin 3.8 g/dL Globulin 4.0 g/dL Bilirubin, Total 0.5 mg/dL ALT (SGPT) 42 U/L AST (SGOT) 39 U/L Alkaline Phosphatase 101 IU/L WBC 6.0 10 3/uL RBC 3.80 10 6/uL HGB 13.6 g/dL HCT 41.3 % MCV 108.7 fL MCH 35.8 pg MCHC 32.9 g/dL RDW 12.2 % Platelet Count 199 10 3/cmm MPV 9.0 fL Neutrophils 2.75 10 3/uL Lymphocytes 2.3 10 3/uL Monocytes 0.7 10 3/uL Eosinophils 0.1 10 3/uL Basophils 0.0 10 3/uL Neutrophil % 46.2 % Lymphocyte % 38.8 % Monocyte % 12.1 % Eosinophil % 2.2 % Basophils % 0.5 % NRBC % 0 % Impression: Moderately differentiated primary invasive adenocarcinoma of right lower lobe lung status post segmentectomy done on May 27, 2020 showed tumor size 3.5 cm, single focus, clear surgical margins, no visceral pleural involvement, no lymphovascular involvement, no lymph nodes submitted or found, immunohistochemistry positive for TTF-1, p63, Napsin, CK Reji, CK 8/18, CK7 and CEA but negative for CK20 pT2a, NX CT PET scan done on January 27, 2020 showed 2.3 x 1.5 cm SUV 8.8 right lower lobe nodule and roughly 1.8 cm subcarinal lymph node with SUV of 5 and a lytic lesion at C4 with SUV of 8.3 Infiltrating adenocarcinoma, low-grade, well to moderately differentiated status post ascending colon and terminal ileum, right hemicolectomy done on 01/24/2019 Final pathology report showed limited penetration through muscularis propria into serosal connective tissue, smaller, separate invasive carcinoma focus measuring 1 x 1 cm Clear surgical margin but DCIS at staple line. pT3 2 out of 14 lymph nodes were examined showed microscopic clusters pN1b, MSI/MMR intact CT scan of abdomen pelvis done on 11/16/2018 showed no evidence of metastatic disease. Stage IIIB Mr Potts was offered treatment with FOLFOX. He began his first cycle on 04/04/2019. He has tolerated it well overall with the exception of thrombocytopenia and chemo induced neutropenia. He has responded well to Neulasta for the neutropenia. patient completed 11/12 cycles ofmodified dose FOLFOX on 10/10/2019, chemotherapy was concluded after 11 doses because of persistent abnormal AST/ALT and mildly elevated bilirubin around 1.3. Hepatitis profile was ordered which was nonreactive. His CMP also showed elevated total protein, for which serum protein electrophoresis was done on 11/01/2019 which confirmed restrictive band migrating in the gamma region, immunofixation confirmed IgM kappa monoclonal band. Plan: Discussed with patient regarding his MRI C-spine report which shows extensive damage to C4 vertebra as well as left cerebellar lesion measuring 2.8 x 2.01 cm and left inferior frontal lobe lesion. Case was discussed with Dr. Patino radiation oncologist regarding radiation therapy but has not the soft tissue causing compression fracture at the bone and radiation therapy may make C4 vertebra more unstable so surgical intervention was recommended, discussed with patient and his caregiver regarding seriousness of C4 lesion as slightest trauma can cause serious neurological consequences, patient and caregiver expressed full understanding and agreed to go to hospital for further evaluation. Concern is metastatic disease to C-spine and brain could be from recently diagnosed adenocarcinoma of the lung or metastatic colorectal cancer. So surgical evaluation to stabilize C4 vertebra and biopsy to confirm the primary, as well as tissue required for molecular profiling and PDL 1 is under consideration Case was discussed with the ER physician, patient was sent to emergency room but prior to that he was given loading dose of dexamethasone 10 mg IV x1 then he will continue 4 mg every 6 hours. Patient was offered assistance to go to emergency room but he would like to smoke before he go to ER, knowing the risk, patient was advised to quit smoking and was offered any assistance he may need. Patient's caregiver has decided taking to ER after he finishes smoking. Signed By: Andrés Barbour M.D. <<Signature on File>>
== END 2020-08-01 10:22 | disposition home or self-care (01) ==
LOC: ONCMED 10:22
PROVIDERS: PCP Internal Medicine Medical Oncology; Visit Provider Internal Medicine Hematology & Oncology
DX: C79.51 Secondary malignant neoplasm of bone (principal); C79.31 Secondary malignant neoplasm of brain; C80.1 Malignant (primary) neoplasm, unspecified; C34.31 Malignant neoplasm of lower lobe, right bronchus or lung; C18.2 Malignant neoplasm of ascending colon; M48.52XA Collapsed vertebra, not elsewhere classified, cervical region, initial encounter for fracture; M48.02 Spinal stenosis, cervical region; M25.512 Pain in left shoulder; M25.511 Pain in right shoulder; F17.200 Nicotine dependence, unspecified, uncomplicated; Z90.2 Acquired absence of lung [part of]; Z90.49 Acquired absence of other specified parts of digestive tract; Z79.52 Long term (current) use of systemic steroids
CPT/HCPCS: 36591; 72156; 80053; 85025; 96365; 99215; A9579; J1100

== ENCOUNTER 2020-08-01 16:07 | Emergency (ER) | payer OTHER, SELFPAY ==
[2020-08-01 16:09] VITALS: BP 148/96; PULSE 71; RESP 18; TEMP 36.9; O2SAT 97; BMI 21.9
[2020-08-01] MEDS: ondansetron 2 mg/ML SDV 2 mL 4 MG IVP (17:14)
[2020-08-01] MEDS: morphine 4 mg/mL SDV 1 mL IVP ×2 (17:15→20:39)
--- NOTE | 2020-08-01 18:09 | W.ED.GENADLT ---
HPI - General Adult General: Chief complaint: General Medical Stated complaint: STATES DR MARY CASTILLO NERVE IMPINGEMENT/TXFR ARLEEN Time Seen by Provider: 08/01/20 16:18 Source: patient, RN notes reviewed, old records reviewed and other (discussed with his oncologist) Mode of arrival: ambulatory Limitations: no limitations History of Present Illness: HPI narrative: This unfortunate gentleman was diagnosed with stage III colon cancer in January 2019 with 2+ lymph nodes and underwent therapy with chemotherapy. About a year later on a CT scan done of his chest he was noted to have a right lower lobe mass and on PET scan the lesion lit up and he eventually had lung resection on the pathologic study of the lung mass showed a primary adenocarcinoma of his lung. MRI scan of the neck done on March 14, 2020 to evaluate C4 vertebral body abnormality seen on CT PET scan showed marrow replacing lesion involving C4 vertebral body with more focal lytic lesion centrally as seen on recent CT PET scan small amount of edema in this area with axial imaging metastatic lesion measuring 1.1 x 1.6 cm abuts the posterior cortex this extends slightly into left C4 vertebral body about the left transverse foramen. No extension into posterior elements. No significant epidural disease although moderate central canal stenosis. No other FDG avid lesions on the prior CT PET scan, multilevel moderate to severe bony foraminal narrowing observed worse at bilateral C3-C4 and left C4-C5 and right C5-C6. Today he had a repeat MRI done on his C-spine and it shows biconcave pathological compression of C4 vertebral body with approximately 60% height loss with some retropulsion of the posterior cortex with moderate to severe canal stenosis and impingement on the cervical cord. Because of the impingement on the cervical cord there are concerns that this may progress to paraplegia or worse so the oncologist who referred the patient here so he can be transferred to a tertiary institution for evaluation by neurosurgery. The patient only complains of neck pain, he denies any arm or leg weakness. He denies any numbness. Associated symptoms: Deny dyspnea, headache(s), nausea, rash, palpitations or vomiting Review of Systems General: Reports: 10 or more systems reviewed and unremarkable except in HPI and below Const: Denies: fever(s), chills or body aches Eyes: Denies: change in vision or blurry vision ENMT: Denies: throat pain, enlarged tonsils, odynophagia, hoarseness, mouth pain or swelling of lips/tongue Card: Denies: palpitations, irregular heart rhythm, edema or swelling of feet/ankles Resp: Denies: dyspnea, productive cough or non-productive cough GI: Denies: abdominal pain, nausea or vomiting : Denies: flank pain, dysuria, urinary frequency, urinary urgency or urinary hesitancy Musc: Reports: neck pain; Denies: back pain or extremity swelling Skin/Breast: Denies: rash, pruritus or erythema Neuro: Denies: headache(s), numbness in extremities or weakness in extremities Endo: Denies: polyuria, polydipsia or tired all the time PFSH ED PFSH: Medical History Adenocarcinoma of right lung Alcohol dependence Anxiety disorder COPD (chronic obstructive pulmonary disease) History of colon polyps Hyperlipidemia Hypertension Right lower lobe lung mass Surgical History History of colonoscopy (01/2019) History of right hemicolectomy (~01/2019) Malignant neoplasm of hepatic flexure Family History Family/Other Cancer Mother Stroke Denies family history of Anesthesia complication Bleeding disorder Social History Smoking and tobacco status: current every day smoker cigarettes Second hand smoke exposure: Yes Alcohol intake: current Alcohol intake frequency: 3 or more drinks per day Alcohol type: beer and hard liquor Physical Exam Const: COMMON NORMALS: no acute distress, average body habitus, patient oriented x3, no limitations, healthy appearing, alert and well nourished HENMT: COMMON NORMALS: normocephalic, atraumatic and moist oral mucous membranes HEAD & SCALP: normocephalic and atraumatic Neck/C-Spine: COMMON NORMALS: supple, no meningeal signs, no JVD and No carotid bruits Resp: COMMON NORMALS: normal respiratory effort, No retractions, No use of accessory muscles, clear to auscultation bilaterally and percussion normal AUSCULTATION: clear to auscultation bilaterally PERCUSSION: percussion normal Cardio: COMMON NORMALS: no JVD, regular rate, regular rhythm, S1 normal heart sound present, S2 normal heart sound present, No gallops present (Cardio), No clicks present (Cardio), No murmurs present (Cardio), No rub (Cardio) and Peripheral pulses 2+ throughout RATE: regular rate RHYTHM: regular rhythm HEART SOUNDS: S1 normal heart sound present and S2 normal heart sound present PERIPHERAL PULSES: Peripheral pulses 2+ throughout GI: COMMON NORMALS: Normal to inspection, nondistended, normoactive bowel sounds present, Soft to palpation, non-tender, No hepatosplenomegaly present, no masses and no bruits PALPATION: Yes Soft to palpation and Yes No hepatosplenomegaly present Extremity: COMMON NORMALS: normal to inspection, full ROM, capillary refill normal, no calf tenderness and no pedal edema Neuro: COMMON NORMALS: patient oriented x3 SENSORIUM/ORIENTATION: Yes alert MENINGEAL SIGNS: Yes no meningeal signs OTHER: No neurologic deficits, normal sensation, normal reflexes. Skin: COMMON NORMALS: no rashes or lesions noted, no wounds, turgor normal, no jaundice, no petechiae and no mottling GENERAL SKIN EXAM: no rashes or lesions noted and turgor normal Course Consultations: Consultation #1: Discussed with Dr. Tolbert, spine surgeon on-call at [facility] in [place]. He advised we admit patient to the hospitalist service but it is not likely that he will take this patient to the OR. He will consult with the patient when he arrives. Time: 18:26 Consultation #2: Discussed the patient with Dr. Ko, hospitalist at [facility] in [place] and she kindly accepted patient to her service Time: 20:11 Vital Signs: Vital signs: Vital Signs Temperature 98.4 F 08/01/20 16:09 Pulse Rate 71 08/01/20 16:09 Respiratory Rate 18 08/01/20 16:09 Blood Pressure 148/96 08/01/20 16:09 Pulse Oximetry 97 08/01/20 16:09 MDM - General Adult MDM Narrative: Medical decision making narrative: 65-year-old male who has at least 2 primary malignancies, colon and adenocarcinoma of his lung was sent to the emergency department by his oncologist because an MRI of his cervical spine that was done today showed retropulsion of the C4 cortex into the spinal canal causing spinal stenosis and abutting on the spinal cord. He is concerned about possible progression and paralysis or in this patient. Patient has no neurologic complaints and has no neurologic deficits on exam. His only complaints are neck pain. Patient is being transferred to [facility] in [place] for further evaluation and management Medical Records: Attestation: I reviewed the patient's medical records. Lab Data: Attestation: I reviewed the patient's lab results. Imaging Data^: MRI: Radiologist's impression: [employer] [address] Magnetic Resonance Report Signed Patient: Rich Potts #: [id number] : 7Acct#:[id number] Age/Sex: 65 / MADM Date: 08/01/20 Loc: ONCMEDRoom/Bed: Attending Dr: Andrés Barbour MD Ordering Provider/Ordering MD: Andrés Barbour MD Date of Service: 08/01/20 Procedure(s): MR cervical spine wo/w [id number] Accession Number(s): [id number] Report Number: [id number] WS: [id number] MRI CERVICAL SPINE NONCONTRAST AND CONTRAST TECHNIQUE: Sagittal T1, T2 and STIR imaging. Axial T2, gradient, and fiesta imaging. Post gadolinium imaging was obtained. CLINICAL INFORMATION: HX OF CANCER;NECK PAIN;RT COLON CA COMPARISON: MRI March 14, 2020 FINDINGS: Straightening of the normal cervical lordosis. Interval biconcave pathologic compression at C4 vertebral body is new since the prior examination. Loss of approximately 60% vertebral body height centrally. Minimal retropulsion of the posterior cortex with moderate to severe central canal stenosis. Enhancing ventral epidural disease extending into the neural foramen bilaterally with moderate to severe bilateral foraminal narrowing. Trace enhancing dorsal epidural disease. Impingement with mild flattening of the cervical cord. Cord signal remains normal. Central canal stenosis increased compared to previous. Enhancing paravertebral soft tissue at this level. Partially visualized enhancing INTRACRANIAL metastatic lesions involving the left cerebellum measuring 2.8 x 2.1 cm and left inferior frontal lobe measuring 9 mm. Moderate surrounding edema visualized in the left cerebellum. Recommend further evaluation with MRI of the head without and with gadolinium enhancement. No other significant interval changes. C2-C3: Mild facet arthropathy. Mild right greater than left bony foraminal narrowing. Mild facet arthropathy. C3-C4: Disc osteophyte complex with endplate ridging. Moderate central canal stenosis. Moderate bilateral bony foraminal narrowing with mild to moderate facet arthropathy. C4-C5 described above C5-C6: Disc osteophyte complex with endplate ridging eccentric to the right. Severe right foraminal narrowing. Mild left foraminal narrowing. Moderate facet arthropathy. C6-C7: Disc osteophytic complex with endplate ridging. Severe left and moderate right bony foraminal narrowing. Mild facet arthropathy. Mild central canal stenosis. C7-T1: Disc osteophytic ridging. Moderate bilateral bony foraminal narrowing. Spinal canal is patent. MR/MR cervical spine wo/w [id number] IMPRESSION: 1. New interval pathologic compression at C4 vertebral body with biconcave compression. Loss of approximately 60% vertebral body height centrally. 2. Mild retropulsion of the posterior cortex C4 with moderate to severe central canal stenosis. Mild impingement on the cervical cord. Cord signal remains normal. Associated enhancing ventral epidural disease extending into the neural foramen. This is new from previous. 3. Partially visualized enhancing intracranial metastatic lesions in the left cerebellum and left inferior frontal lobe partially visualized. Cerebellar lesion measures 2.8 x 2.1 CM. Recommend further evaluation MRI head without and with gadolinium enhancement. 4. No other significant changes from previous. Notified Dr. Barbour's nurse Fara ANDINO at 08/01/2020 12:29 PM. Dictated By:Adán Reid MD Signed By:Adán Reid MDSigned Date/Time:08/01/20 1233 DD/ 1214 Discharge Plan Discharge Patient Disposition: Xfer Short-Term Hosp Clinical Impression: Central stenosis of spinal canal, Malignant neoplasm metastatic to cervical vertebral column with unknown primary site Lung cancer Qualifiers: Laterality: right Lung location: lower lobe of lung Qualified Code(s): C34.31 - Malignant neoplasm of lower lobe, right bronchus or lung Colon cancer Qualifiers: Colon location: unspecified part of colon Qualified Code(s): C18.9 - Malignant neoplasm of colon, unspecified Condition: Stable Discharge Orders: Transfer Out of Facility (Order); Ordered 08/01/20 Ordered By: Dav Meraz Referrals: Rubén Vergara MD [Primary Care Provider] - Coding Level of Care Code ED Material Control Manager for Chg Fwd Exam Comprehensive
[2020-08-01 21:45] LABS: SARS Covid-2 Antigen Negative (Negative)
[2020-08-01 21:53] VITALS: BP 126/77; PULSE 93; RESP 18; O2SAT 96
[2020-08-02 00:58] VITALS: BP 134/79; PULSE 81; RESP 16; O2SAT 98
[2020-08-02 01:22] LABS: Basophils % 0.6 %; Eosinophils # 0.2 10^3/uL (0.0-0.8); Eosinophils % 2.2 %; Hematocrit 43.4 % (42.0-52.0); Hemoglobin 14.1 g/dL (11.7-16.6); Lymphocytes # 2.7 10^3/uL (0.8-4.8); Lymphocytes % 37.6 %; Mean Corpuscular HGB Conc 32.5 g/dL (30.0-36.0); Mean Corpuscular Hemoglobin 33.8 pg (28.0-34.0); Mean Corpuscular Volume 104.1 fL (80-94); Mean Platelet Volume 9.1 fL (7.4-10.4); Monocytes # 0.8 10^3/uL (0.2-0.9); Monocytes % 11.6 %; Neutrophils % 47.7 %; Nucleated Red Blood Cells % 0 %; Platelet Count 296 10^3/cmm (130-400); Red Blood Count 4.17 10^6/uL (4.1-5.3); Red Cell Distribution Width 12.3 % (12.1-15.1); White Blood Count 7.1 10^3/uL (4.0-10.0)
[2020-08-02 01:37] LABS: Alanine Aminotransferase 64 U/L (0-41); Alkaline Phosphatase 181 IU/L (40-130); Aspartate Amino Transferase 38 U/L (0-40); Blood Urea Nitrogen 13 mg/dL (8-23); Calcium 9.7 mg/dL (8.5-10.5); Carbon Dioxide 29 mmol/L (22-29); Chloride 97 mmol/L (98-107); Globulin 4.2 g/dL (1.3-4.6); Glomerular Filtration Rate 97.6 mL/min (90-130); Glucose 90 mg/dL (65-115); Osmolality Calculated 282 mOsm/kg (285-295); Sodium 136 mmol/L (136-145); Total Bilirubin 1.1 mg/dL (0.15-1.2); Total Protein 8.2 g/dL (6.6-8.7)
== END 2020-08-02 01:18 | disposition short-term general hospital (02) ==
PROVIDERS: Emergency Provider Family Medicine; PCP Internal Medicine Medical Oncology
DX: M48.00 Spinal stenosis, site unspecified (principal); C34.31 Malignant neoplasm of lower lobe, right bronchus or lung; C18.9 Malignant neoplasm of colon, unspecified; J44.9 Chronic obstructive pulmonary disease, unspecified; E78.5 Hyperlipidemia, unspecified; I10 Essential (primary) hypertension; F17.210 Nicotine dependence, cigarettes, uncomplicated
CPT/HCPCS: 12345; 80053; 85025; 87426; 96374; 96375; 96376; 99283; 99285; J2270; J2405

== ENCOUNTER 2020-09-10 09:22 | Outpatient (CLI) | payer OTHER, SELFPAY ==
[2020-09-10 09:59] LABS: Basophils # 0.1 10^3/uL (0.0-0.1); Basophils % 0.7 %; Eosinophils # 0.1 10^3/uL (0.0-0.8); Eosinophils % 1.3 %; Hemoglobin 11.9 g/dL (11.7-16.6); Lymphocytes # 2.8 10^3/uL (0.8-4.8); Lymphocytes % 36.6 %; Mean Corpuscular HGB Conc 33.1 g/dL (30.0-36.0); Mean Corpuscular Hemoglobin 33.7 pg (28.0-34.0); Mean Platelet Volume 8.4 fL (7.4-10.4); Neutrophils % 48.1 %; Nucleated Red Blood Cells % 0 %; Platelet Count 372 10^3/cmm (130-400); Red Blood Count 3.53 10^6/uL (4.1-5.3); White Blood Count 7.7 10^3/uL (4.0-10.0)
[2020-09-10 10:31] LABS: Alanine Aminotransferase 52 U/L (0-41); Albumin Level 3.6 g/dL (3.5-5.2); Alkaline Phosphatase 208 IU/L (40-130); Anion Gap 12.9 (5-19); Aspartate Amino Transferase 29 U/L (0-40); Blood Urea Nitrogen 9 mg/dL (8-23); Calcium 9.2 mg/dL (8.5-10.5); Carbon Dioxide 27 mmol/L (22-29); Chloride 102 mmol/L (98-107); Globulin 4.1 g/dL (1.3-4.6); Glomerular Filtration Rate 136.1 mL/min (90-130); Glucose 102 mg/dL (65-115); Osmolality Calculated 285 mOsm/kg (285-295); Potassium 3.9 mmol/L (3.5-5.1); Sodium 138 mmol/L (136-145); Total Bilirubin 1.1 mg/dL (0.15-1.2); Total Protein 7.7 g/dL (6.6-8.7)
--- NOTE | 2020-09-12 10:38 | ONC FU_ITS ---
Dr. Barbour follow up note Patient: Rich Potts Unit #: [id number]: [id number] Dicatated By: Andrés Barbour M.D.Date of Visit:Sep 10, 2020 Onc Med Follow-up/Prog Note History of Present Illness: Mr. Potts is a 65-year-old gentleman who underwent surveillance colonoscopy. It revealed a mass in the hepatic flexure. A biopsy was obtained which showed adenocarcinoma arising in the background of tubular adenoma. There was another friable polyp seen which was completely removed, but did show tubular adenoma with high-grade dysplasia. CT scan of abdomen reported no direct evidence of metastatic disease. Mr Potts underwent ascending colon and terminal ileum, right hemicolectomy on 01/24/2019. The pathology reported low-grade, well to moderately differentiated infiltrating adenocarcinoma with limited penetration through muscularis propria into serosal connective tissue. Tumor arising immediately adjacent to tubulovillous adenoma with severe dysplasia T3 Smaller, separate invasive carcinoma focus measuring 1 x 1 cm. Surgical margins clear but as per discussion with Dr. 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 2 nodes were positive( microscopic clusters/ )14 node examined N1b MSI/MMR intact recommended treatment with 12 cycles of FOLFOX. He began his first cycle on 04/04/19. His dose has been modified to hold the 5 FU bolus. Mr Potts has completed 11 cycles and has had complications due to the chemotherapy of neutropenia/thrombocytopenia. His cycle 4 was held an additional week due to the neutropenia. He was due for chemo and his ANC was 900. He was delayed a week and recovered to 1800. His day 8 ANC then was 1600. His platelet count was 72,000 at that time as well. Neulasta was ordered and it began with cycle Cycle 6. He has had no further neutropenia since that addition. He has had mildly fluctuating AST/ALT.total bilirubin but has been asymptomatic. his adjuvant chemotherapy was concluded after 11 cycles of FOLFOX as patient continued to have mildly fluctuated ALT AST and bilirubin etiology was unclear and abdominal sonogram shows no abnormality in the liver and biliary drainage system. Abdominal sonogram was done on 11/16/2019 showed no abnormality seen in the liver or bile duct drainage system. Hepatitis profile checked on 11/01/2019 shows nonreactive with hepatitis B surface antibody 3.5, and consistent with immunity, hepatitis C is nonreactive Serum protein electrophoresis confirmed restricted band migrating in gamma region, immunofixation confirmed IgM kappa monoclonal band present. And follow-up CMP shows persistent mildly elevated but stable bilirubin and AST/ALT. CT scan of chest abdomen pelvis done on January 04, 2020 showed in the right lung base there is a pleural-based mass smiling 2.1 cm and this mass is adherent to medial pleura. No destructive changes surrounding this area. Mass is seen extending off the posterior wall of right lower lobe lung. CT scan of the abdomen shows normal appearance of the liver, no filling defects seen adrenal gland normal gallbladder normal no stones spleen is normal. And CT scan of abdomen pelvis done on November 2018 at [facility] showed there was no acute process referable to visualized lower thorax and liver gallbladder biliary tree are normal. The spleen contain an occasional calcified granuloma otherwise unremarkable. 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 Background decrease trilineage hematopoiesis detected. Adequate iron. Bone marrow flow cytometry confirmed occasional B-cell noted with a slight predominance of kappa light chain expression no overtly aberrant myeloid or lymphoid population detected Serum protein electrophoresis confirmed restricted band migrating in gamma region, immunofixation confirmed IgM kappa monoclonal band present. 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 CT PET scan done on January 27, 2020 showed there is a 2.3 x 1.5 cm with SUV of 8.8 right lower lobe nodule abutting pleura consistent with metastatic disease a roughly 1.8 cm subcarinal node has SUV of 5. A groundglass opacity in the lateral left lower lobe is FDG negative. A lytic lesion at C4 with SUV of 8.3 consistent with osseous metastatic disease Patient was referred to Dr. Acuña for evaluation of right lower lobe lung mass to rule out metastatic disease versus second primary versus lymphoma versus inflammation patient saw Dr. Acuña on February 22, [address] Acuña recommended resection of right lower lobe lung nodule after evaluating PFTs.Patient underwent right lower lobe lung segmentectomy on May 27, 2020 final pathology report came back moderately differentiated primary invasive adenocarcinoma, 3.5 cm sized tumor with clear surgical margin no lymphovascular invasion seen no visceral pleural invasion and no lymph node was submitted for exam e.g. pT2a, pNX immunohistochemistry, negative for CK20 but positive for TTF-1, Napsin, CK7 MRI scan of the neck done on March 14, 2020 to evaluate C4 vertebral body abnormality seen on CT PET scan showed marrow replacing lesion involving C4 vertebral body with more focal lytic lesion centrally as seen on recent CT PET scan small amount of edema in this area with axial imaging metastatic lesion measuring 1.1 x 1.6 cm abuts the posterior cortex this extends slightly into left C4 vertebral body about the left transverse foramen. No extension into posterior elements. No significant epidural disease although moderate central canal stenosis. No other FDG avid lesions on the prior CT PET scan, multilevel moderate to severe bony foraminal narrowing observed worse at bilateral C3-C4 and left C4-C5 and right C5-C6 Repeat MRI scan of the C-spine done on August 01, 2020 shows biconcave pathological compression at C4 vertebral body with loss of approximately 60% vertebral body height centrally minimal retropulsion of posterior cortex with moderate to severe central canal stenosis. Enhancing ventral epidural disease extending into neuroforamen bilaterally with moderate to severe bilateral foraminal narrowing. Cord signal remains normal. Partially visualized enhancing intracranial metastatic lesions involving left cerebellum measuring 2.8 x 2.1 cm and left inferior frontal lobe measuring 9 mm. Moderate surrounding edema visualized in the left cerebellumPatient was sent to [facility] and then got transferred to [facility] on August 02, 2020 with C4 pathological fracture and erosion and on August 03, 2020 he underwent orthopedic surgery for C4 corpectomy, expandable cage placement at C4, anterior cervical fusion of C3 -C5, and posterior spinal fusion with instrumentation and bone grafting from C3-C5 and and neurosurgery was consulted on August 05, 2020 for 2 new brain lesions found on imaging and the patient started on dexamethasone, radiation oncology was also consulted and patient underwent gamma knife done on August 08, 2020 and then on August 14, 2020 patient underwent left suboccipital craniotomy further tumor excision and intraoperative frozen section consistent with metastatic cancer and final pathology report came back as metastatic adenocarcinoma with mucinous features and immunohistochemistry was positive for CK7, negative for TTF-1, CK20, CDX2 and Napsin a shows focal reactivity, lung being primary was considered, patient was discharged home with physical therapy. Came for follow-up, complaining of off and on headaches but no blurred vision double vision no focal weakness, no nausea or vomiting, his pain is under control with current pain medication. No fever chills, no nausea or vomiting no diarrhea or constipation Medications: Albuterol Sulfate 2 puff(s) (of 108 (90 base) mcg/act) Aerosol Powder, Breath Activated Inhalation q 4 hours PRN, ALPRAZolam 1 Tablet (of 0.5 mg) Oral t.i.d. PRN, Atorvastatin Calcium 1 Tablet (of 40 mg) Oral daily, FLUoxetine HCl 1 Tablet (of 40 mg) Capsule Oral daily, Gabapentin 1 Capsule (of 300 mg) Oral t.i.d., Lisinopril 1 Tablet (of 20 mg) Oral daily, Propranolol HCl 1 Tablet (of 10 mg) Oral b.i.d., Sildenafil Citrate 1 Tablet (of 100 mg) Oral PRN Allergies: No Known Allergies. Review of Systems: Review of Systems is not available for this patient. Vital Signs: Vitals are not available for this patient. Performance Status: 2 - Ambulatory/capable of all self-care, unable to perform any work activities. Up and about more than 50% of waking hours. (ECOG) Physical Examination: ENMT - No mouth sores, no thrush, no jaundice, Respiratory - Lungs are clear to auscultation, Cardiovascular - Regular rate and rhythm of heart, Abdomen - Soft, bowel sounds present, Extremities - No visible edema. Lab/Imaging: Test performed on Aug 01, 2020 13:48 Sodium 136 mmol/L Potassium 3.9 mmol/L Chloride 98 mmol/L CO2 29 mmol/L Anion Gap 12.9 BUN 12 mg/dL Creatinine 0.7 mg/dL Cr Clearance (Est) 128.2100 mL/min eGFR 113.9 mL/min Glucose 81 mg/dL Osmolality - Calculated 281 mOsm/kg Calcium 9.4 mg/dL Protein, Total 8.0 g/dL Albumin 4.0 g/dL Globulin 4.0 g/dL Bilirubin, Total 1.1 mg/dL ALT (SGPT) 58 U/L AST (SGOT) 36 U/L Alkaline Phosphatase 186 IU/L WBC 7.8 10 3/uL RBC 4.10 10 6/uL HGB 13.9 g/dL HCT 41.6 % MCV 101.5 fL MCH 33.9 pg MCHC 33.4 g/dL RDW 12.0 % Platelet Count 285 10 3/cmm MPV 8.7 fL Neutrophils 3.72 10 3/uL Lymphocytes 2.6 10 3/uL Monocytes 1.3 10 3/uL Eosinophils 0.2 10 3/uL Basophils 0.0 10 3/uL Neutrophil % 47.6 % Lymphocyte % 33.5 % Monocyte % 16.2 % Eosinophil % 1.9 % Basophils % 0.5 % NRBC % 0 % Impression: Metastatic adenocarcinoma with mucinous per suboccipital craniotomy done on August 14, 2020, prior to that patient underwent gamma knife Features immunohistochemistry positive for CK7, negative for TTF-1, CK20, CDX2 and Napsin-A shows focal reactivity Status post C4 corpectomy, expandable cage placement at C4, anterior cervical fusion of C3 C5 and posterior spinal fusion with instrumentation and bone grafting from C3 C5 done on August 03, 2020 Moderately differentiated primary invasive adenocarcinoma of right lower lobe lung status post segmentectomy done on May 27, 2020 showed tumor size 3.5 cm, single focus, clear surgical margins, no visceral pleural involvement, no lymphovascular involvement, no lymph nodes submitted or found, immunohistochemistry positive for TTF-1, p63, Napsin, CK Reji, CK 8/18, CK7 and CEA but negative for CK20 pT2a, NX CT PET scan done on January 27, 2020 showed 2.3 x 1.5 cm SUV 8.8 right lower lobe nodule and roughly 1.8 cm subcarinal lymph node with SUV of 5 and a lytic lesion at C4 with SUV of 8.3 Infiltrating adenocarcinoma, low-grade, well to moderately differentiated status post ascending colon and terminal ileum, right hemicolectomy done on 01/24/2019 Final pathology report showed limited penetration through muscularis propria into serosal connective tissue, smaller, separate invasive carcinoma focus measuring 1 x 1 cm Clear surgical margin but DCIS at staple line. pT3 2 out of 14 lymph nodes were examined showed microscopic clusters pN1b, MSI/MMR intact CT scan of abdomen pelvis done on 11/16/2018 showed no evidence of metastatic disease. Stage IIIB Mr Potts was offered treatment with FOLFOX. He began his first cycle on 04/04/2019. patient completed 11/12 cycles ofmodified dose FOLFOX on 10/10/2019, chemotherapy was concluded after 11 doses because of persistent abnormal AST/ALT and mildly elevated bilirubin around 1.3. Hepatitis profile was ordered which was nonreactive. His CMP also showed elevated total protein, for which serum protein electrophoresis was done on 11/01/2019 which confirmed restrictive band migrating in the gamma region, immunofixation confirmed IgM kappa monoclonal band.^, For which he underwent bone marrow evaluation which showed 70 to 80% involvement with abnormal lymphocytes and with special immunohistochemistry and molecular profiling it was confirmed that patient has marginal zone lymphoma with plasmacytic differentiation] Plan: Discussed with patient regarding his disease status and labs white blood count 7.7 hemoglobin 11.9 hematocrit 36 platelets 372,000 CMP within normal limits except ALT 52 Clinically, patient is doing reasonably well in mild to moderate distress due to off and on headaches, last month patient underwent suboccipital craniotomy and C-spine surgery At [place], at this point ,will consider MRI scan of the head and also refer him to radiation oncology for evaluation and request pathology at [place] regarding molecular profiling for PD-L1, EGFR, ALK, ROS1, BRAF, NTRK, TMB, MET and then patient will return to clinic after MRI scan of the brain done and will also give him prescription for his pain medication. Signed By: Andrés Barbour M.D. <<Signature on File>>
== END 2020-09-10 09:23 | disposition home or self-care (01) ==
LOC: ONCMED 09:23
PROVIDERS: PCP Internal Medicine Medical Oncology; Visit Provider Internal Medicine Hematology & Oncology
DX: C34.31 Malignant neoplasm of lower lobe, right bronchus or lung (principal); C18.2 Malignant neoplasm of ascending colon; C88.4 Extranodal marginal zone B-cell lymphoma of mucosa-associated lymphoid tissue [MALT-lymphoma]; R51.9 Headache, unspecified
CPT/HCPCS: 36591; 80053; 85025; 99215

== ENCOUNTER 2020-10-02 09:17 | Outpatient (CLI) | payer OTHER, SELFPAY ==
--- NOTE | 2020-10-02 09:23 | MR_ITS ---
WS: [id number] MRI HEAD WITH CONTRAST TECHNIQUE: Sagittal T1, T2 axial, T2 axial FLAIR, axial susceptibility weighted imaging, axial diffus ion weighted images, and coronal T2 images were obtained. Pre and post-T1 axial and post T1 coronal i mages. ADC and FSPGR images. CLINICAL INFORMATION: PERSISTENT HEADACHE;HX OF CANCER COMPARISON: None. FINDINGS: Some images degraded by motion. No evidence restricted diffusion to suggest acute ischemia. Multiple enhancing supra and infratentori al lesions consistent with metastatic disease. Largest lesion in the left cerebellum measuring 2.2 x 2.2 x 1.2 cm abutting the left tentorium. This appears centrally necrotic with peripheral hemosiderin . Mild associated edema. Mild mass effect on the brachium pontis. Fourth ventricle is normal. Additio nal tiny punctate lesion in the midline vermis. Additional smaller enhancing right posterior cerebellar lesion measuring 6 mm. Numerous enhancing supratentorial metastatic lesions in the left inferior frontal lobe measuring 5 mm , right anterior temporal lobe, left insula, right parasagittal frontal lobe, parasagittal right mike etal lobe near the vertex. Tiny punctate focus along the left parasagittal frontal lobe near the vert ex. Normal dural venous sinuses. No hydrocephalus. No midline shift.Minimal small vessel changes. Moderat e parenchymal volume loss. Mild edema associated with the left inferior frontal lesion and moderate e hermelinda associated with the left CP angle lesion. Normal vascular flow voids at the skull base. No extra-axial fluid collections. Paranasal sinuses and mastoid air cells well aerated. MR/MR head wo/w con [id number] IMPRESSION: 1. Left cerebellopontine angle enhancing metastatic lesion measuring 2.2 x 2.2 x 1.2 cm with moderate edema. Mild localized mass effect on the brachium ponti s. Normal fourth ventricle. No hydrocephalus. Small amount of peripheral hemosi nolan. 2. Additional smaller enhancing metastatic right cerebellar lesion measuring 6 mm and tiny punctate enhancing metastatic lesion in the vermis. 3. Numerous enhancing supratentorial metastatic lesions the largest measuring 5 mm in the inferior left frontal lobe with mild edema. No significant mass eff ect or midline shift. 4. Numerous additional subcentimeter and punctate supratentorial lesions with no significant edema described above. Approximately 8-9 supratentorial lesions in total. 5. Minimal small vessel changes. Moderate parenchymal volume loss. Notified Andrés Barbour MD at 10/02/2020 11:17 AM.
== END 2020-10-02 09:18 | disposition home or self-care (01) ==
LOC: RADSHAW 09:17
PROVIDERS: PCP Internal Medicine Medical Oncology; Visit Provider Internal Medicine Hematology & Oncology
DX: R51.9 Headache, unspecified (principal); Z85.9 Personal history of malignant neoplasm, unspecified; R22.0 Localized swelling, mass and lump, head
CPT/HCPCS: 70553; A9579

== ENCOUNTER 2020-10-03 05:54 | Outpatient (CLI) | payer OTHER, SELFPAY ==
--- NOTE | 2020-10-03 18:16 | ONC FU_ITS ---
Dr. Barbour follow up note Patient: Rich Potts Unit #: [id number]: 1955 Dicatated By: Andrés Barbour M.D.Date of Visit:Oct 03, 2020 Onc Med Follow-up/Prog Note History of Present Illness: Mr. Potts is a 65-year-old gentleman who underwent surveillance colonoscopy. It revealed a mass in the hepatic flexure. A biopsy was obtained which showed adenocarcinoma arising in the background of tubular adenoma. There was another friable polyp seen which was completely removed, but did show tubular adenoma with high-grade dysplasia. CT scan of abdomen reported no direct evidence of metastatic disease. Mr Potts underwent ascending colon and terminal ileum, right hemicolectomy on 01/24/2019. The pathology reported low-grade, well to moderately differentiated infiltrating adenocarcinoma with limited penetration through muscularis propria into serosal connective tissue. Tumor arising immediately adjacent to tubulovillous adenoma with severe dysplasia T3 Smaller, separate invasive carcinoma focus measuring 1 x 1 cm. Surgical margins clear but as per discussion with Dr. 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 2 nodes were positive( microscopic clusters/ )14 node examined N1b MSI/MMR intact recommended treatment with 12 cycles of FOLFOX. He began his first cycle on 04/04/19. His dose has been modified to hold the 5 FU bolus. Mr Potts has completed 11 cycles and has had complications due to the chemotherapy of neutropenia/thrombocytopenia. His cycle 4 was held an additional week due to the neutropenia. He was due for chemo and his ANC was 900. He was delayed a week and recovered to 1800. His day 8 ANC then was 1600. His platelet count was 72,000 at that time as well. Neulasta was ordered and it began with cycle Cycle 6. He has had no further neutropenia since that addition. He has had mildly fluctuating AST/ALT.total bilirubin but has been asymptomatic. his adjuvant chemotherapy was concluded after 11 cycles of FOLFOX as patient continued to have mildly fluctuated ALT AST and bilirubin etiology was unclear and abdominal sonogram shows no abnormality in the liver and biliary drainage system. Abdominal sonogram was done on 11/16/2019 showed no abnormality seen in the liver or bile duct drainage system. Hepatitis profile checked on 11/01/2019 shows nonreactive with hepatitis B surface antibody 3.5, and consistent with immunity, hepatitis C is nonreactive Serum protein electrophoresis confirmed restricted band migrating in gamma region, immunofixation confirmed IgM kappa monoclonal band present. And follow-up CMP shows persistent mildly elevated but stable bilirubin and AST/ALT. CT scan of chest abdomen pelvis done on January 04, 2020 showed in the right lung base there is a pleural-based mass smiling 2.1 cm and this mass is adherent to medial pleura. No destructive changes surrounding this area. Mass is seen extending off the posterior wall of right lower lobe lung. CT scan of the abdomen shows normal appearance of the liver, no filling defects seen adrenal gland normal gallbladder normal no stones spleen is normal. And CT scan of abdomen pelvis done on November 2018 at [facility] showed there was no acute process referable to visualized lower thorax and liver gallbladder biliary tree are normal. The spleen contain an occasional calcified granuloma otherwise unremarkable. 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 Background decrease trilineage hematopoiesis detected. Adequate iron. Bone marrow flow cytometry confirmed occasional B-cell noted with a slight predominance of kappa light chain expression no overtly aberrant myeloid or lymphoid population detected Serum protein electrophoresis confirmed restricted band migrating in gamma region, immunofixation confirmed IgM kappa monoclonal band present. 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 CT PET scan done on January 27, 2020 showed there is a 2.3 x 1.5 cm with SUV of 8.8 right lower lobe nodule abutting pleura consistent with metastatic disease a roughly 1.8 cm subcarinal node has SUV of 5. A groundglass opacity in the lateral left lower lobe is FDG negative. A lytic lesion at C4 with SUV of 8.3 consistent with osseous metastatic disease Patient was referred to Dr. Acuña for evaluation of right lower lobe lung mass to rule out metastatic disease versus second primary versus lymphoma versus inflammation patient saw Dr. Acuña on February 22, [address] Acuña recommended resection of right lower lobe lung nodule after evaluating PFTs.Patient underwent right lower lobe lung segmentectomy on May 27, 2020 final pathology report came back moderately differentiated primary invasive adenocarcinoma, 3.5 cm sized tumor with clear surgical margin no lymphovascular invasion seen no visceral pleural invasion and no lymph node was submitted for exam e.g. pT2a, pNX immunohistochemistry, negative for CK20 but positive for TTF-1, Napsin, CK7 MRI scan of the neck done on March 14, 2020 to evaluate C4 vertebral body abnormality seen on CT PET scan showed marrow replacing lesion involving C4 vertebral body with more focal lytic lesion centrally as seen on recent CT PET scan small amount of edema in this area with axial imaging metastatic lesion measuring 1.1 x 1.6 cm abuts the posterior cortex this extends slightly into left C4 vertebral body about the left transverse foramen. No extension into posterior elements. No significant epidural disease although moderate central canal stenosis. No other FDG avid lesions on the prior CT PET scan, multilevel moderate to severe bony foraminal narrowing observed worse at bilateral C3-C4 and left C4-C5 and right C5-C6 Repeat MRI scan of the C-spine done on August 01, 2020 shows biconcave pathological compression at C4 vertebral body with loss of approximately 60% vertebral body height centrally minimal retropulsion of posterior cortex with moderate to severe central canal stenosis. Enhancing ventral epidural disease extending into neuroforamen bilaterally with moderate to severe bilateral foraminal narrowing. Cord signal remains normal. Partially visualized enhancing intracranial metastatic lesions involving left cerebellum measuring 2.8 x 2.1 cm and left inferior frontal lobe measuring 9 mm. Moderate surrounding edema visualized in the left cerebellumPatient was sent to [facility] and then got transferred to [facility] on August 02, 2020 with C4 pathological fracture and erosion and on August 03, 2020 he underwent orthopedic surgery for C4 corpectomy, expandable cage placement at C4, anterior cervical fusion of C3 -C5, and posterior spinal fusion with instrumentation and bone grafting from C3-C5 and and neurosurgery was consulted on August 05, 2020 for 2 new brain lesions found on imaging and the patient started on dexamethasone, radiation oncology was also consulted and patient underwent gamma knife done on August 08, 2020 and then on August 14, 2020 patient underwent left suboccipital craniotomy further tumor excision and intraoperative frozen section consistent with metastatic cancer and final pathology report came back as metastatic adenocarcinoma with mucinous features and immunohistochemistry was positive for CK7, negative for TTF-1, CK20, CDX2 and Napsin a shows focal reactivity, lung being primary was considered, patient was discharged home with physical therapy. Follow-up MRI scan of the brain done on October 03, 2019 showed left cerebellopontine angle enhancing metastatic lesion measuring 2.2 x 2.2 x 1.2 cm with moderate edema. Mild localized mass-effect on brachium pontis. Additional smaller enhancing metastatic right cerebellar lesion measuring 6 mm. Numerous enhancing supratentorial metastatic lesions the largest measuring 5 mm in the inferior left frontal lobe with mild edema. Numerous additional subcentimeter and punctate supratentorial lesions with no significant edema. Came for follow-up, denies any specific complaints except occasional headaches, his chronic pain is under control with current pain medication, no fever chills, no nausea or vomiting, no diarrhea constipation, no focal weakness Medications: Albuterol Sulfate 2 puff(s) (of 108 (90 base) mcg/act) Aerosol Powder, Breath Activated Inhalation q 4 hours PRN, ALPRAZolam 1 Tablet (of 0.5 mg) Oral t.i.d. PRN, Atorvastatin Calcium 1 Tablet (of 40 mg) Oral daily, FLUoxetine HCl 1 Tablet (of 40 mg) Capsule Oral daily, Gabapentin 1 Capsule (of 300 mg) Oral t.i.d., Lisinopril 1 Tablet (of 20 mg) Oral daily, Propranolol HCl 1 Tablet (of 10 mg) Oral b.i.d., Sildenafil Citrate 1 Tablet (of 100 mg) Oral PRN Allergies: No Known Allergies. Review of Systems: Review of Systems is not available for this patient. Vital Signs: Performed on Oct 03, 2020 12:42 Height - 76.50 in Weight - 172.6 lbs (LOW) BSA - 2.09 sq.m BMI - 20.74 Temperature - 96.9 F (LOW) Pulse - 92 /min Respiration - 18 /min BP - 127/77 mm(hg) O2 Sat - 96 % Pain - 3 Fatigue - 7 Performance Status: 2 - Ambulatory/capable of all self-care, unable to perform any work activities. Up and about more than 50% of waking hours. (ECOG) Physical Examination: ENMT - No mouth sores, no thrush, no jaundice, Respiratory - Lungs are clear to auscultation, Cardiovascular - Regular rate and rhythm of heart, Abdomen - , Bowel sounds present, Extremities - No visible edema. Lab/Imaging: Test performed on Aug 01, 2020 13:48 Sodium 136 mmol/L Potassium 3.9 mmol/L Chloride 98 mmol/L CO2 29 mmol/L Anion Gap 12.9 BUN 12 mg/dL Creatinine 0.7 mg/dL Cr Clearance (Est) 128.2100 mL/min eGFR 113.9 mL/min Glucose 81 mg/dL Osmolality - Calculated 281 mOsm/kg Calcium 9.4 mg/dL Protein, Total 8.0 g/dL Albumin 4.0 g/dL Globulin 4.0 g/dL Bilirubin, Total 1.1 mg/dL ALT (SGPT) 58 U/L AST (SGOT) 36 U/L Alkaline Phosphatase 186 IU/L WBC 7.8 10 3/uL RBC 4.10 10 6/uL HGB 13.9 g/dL HCT 41.6 % MCV 101.5 fL MCH 33.9 pg MCHC 33.4 g/dL RDW 12.0 % Platelet Count 285 10 3/cmm MPV 8.7 fL Neutrophils 3.72 10 3/uL Lymphocytes 2.6 10 3/uL Monocytes 1.3 10 3/uL Eosinophils 0.2 10 3/uL Basophils 0.0 10 3/uL Neutrophil % 47.6 % Lymphocyte % 33.5 % Monocyte % 16.2 % Eosinophil % 1.9 % Basophils % 0.5 % NRBC % 0 % Impression: Metastatic adenocarcinoma with mucinous per suboccipital craniotomy done on August 14, 2020, prior to that patient underwent gamma knife Features immunohistochemistry positive for CK7, negative for TTF-1, CK20, CDX2 and Napsin-A shows focal reactivity Status post C4 corpectomy, expandable cage placement at C4, anterior cervical fusion of C3 C5 and posterior spinal fusion with instrumentation and bone grafting from C3 C5 done on August 03, 2020 Moderately differentiated primary invasive adenocarcinoma of right lower lobe lung status post segmentectomy done on May 27, 2020 showed tumor size 3.5 cm, single focus, clear surgical margins, no visceral pleural involvement, no lymphovascular involvement, no lymph nodes submitted or found, immunohistochemistry positive for TTF-1, p63, Napsin, CK Reji, CK 8/18, CK7 and CEA but negative for CK20 pT2a, NX Follow-up MRI scan of the brain done on October 02, 2020 shows evidence of disease progression with numerous enhancing supratentorial metastatic lesion and left cerebellopontine angle enhancing metastatic lesion measuring 2.2 x 2.2 x 1.2 cm with moderate edema. CT PET scan done on January 27, 2020 showed 2.3 x 1.5 cm SUV 8.8 right lower lobe nodule and roughly 1.8 cm subcarinal lymph node with SUV of 5 and a lytic lesion at C4 with SUV of 8.3 Infiltrating adenocarcinoma, low-grade, well to moderately differentiated status post ascending colon and terminal ileum, right hemicolectomy done on 01/24/2019 Final pathology report showed limited penetration through muscularis propria into serosal connective tissue, smaller, separate invasive carcinoma focus measuring 1 x 1 cm Clear surgical margin but DCIS at staple line. pT3 2 out of 14 lymph nodes were examined showed microscopic clusters pN1b, MSI/MMR intact CT scan of abdomen pelvis done on 11/16/2018 showed no evidence of metastatic disease. Stage IIIB Mr Potts was offered treatment with FOLFOX. He began his first cycle on 04/04/2019. He has tolerated it well overall with the exception of thrombocytopenia and chemo induced neutropenia. He has responded well to Neulasta for the neutropenia. patient completed 11/12 cycles ofmodified dose FOLFOX on 10/10/2019, chemotherapy was concluded after 11 doses because of persistent abnormal AST/ALT and mildly elevated bilirubin around 1.3. Hepatitis profile was ordered which was nonreactive. His CMP also showed elevated total protein, for which serum protein electrophoresis was done on 11/01/2019 which confirmed restrictive band migrating in the gamma region, immunofixation confirmed IgM kappa monoclonal band. Plan: Discussed with patient regarding his MRI scan of the head report which was done on October 03, 2019 which shows evidence of disease progression, At this point, we will refer him to radiation oncology for evaluation for radiation therapy and still awaiting molecular profiling including PD-L1 status which was requested to pathologist at [place]. Patient will return to clinic 1 week after whole brain radiation therapy done. In the meantime we will continue supportive care Also discussed with him regarding hospice care, patient will discuss with family Signed By: Andrés Barbour M.D. <<Signature on File>>
== END 2020-10-03 05:55 | disposition home or self-care (01) ==
LOC: ONCMED 05:55
PROVIDERS: PCP Internal Medicine Medical Oncology; Visit Provider Internal Medicine Hematology & Oncology
DX: C18.3 Malignant neoplasm of hepatic flexure (principal); D69.6 Thrombocytopenia, unspecified; D70.1 Agranulocytosis secondary to cancer chemotherapy; T45.1X5A Adverse effect of antineoplastic and immunosuppressive drugs, initial encounter; C79.31 Secondary malignant neoplasm of brain; C78.01 Secondary malignant neoplasm of right lung; C78.02 Secondary malignant neoplasm of left lung; Z79.899 Other long term (current) drug therapy
CPT/HCPCS: 99215